=== PATIENT | female | born 1965 | race Caucasian/White ===

== ENCOUNTER → 2018-06-25 | Outpatient (CLI) | payer OTHER ==
--- NOTE | 2018-06-25 17:58 | CT ---
EXAMINATION TYPE: CT ChestAbdPelvis wo/w con DATE OF EXAM: 06/25/2018 INDICATION: Bile duct carcinoma, nausea abnormal physical findings COMPARISON: None CT DLP: 1530.0 mGycm CONTRAST: Performed with Oral Contrast and with IV Contrast, patient injected with 100 mL of Isovue 300. TECHNIQUE: Axial images at 5 mm thick sections. Reconstructed images in the coronal plane. Delayed images through the kidneys. FINDINGS: CT CHEST: Portion of the thyroid visualized is normal. No suspicious lung nodules or focal infiltrates are present. No enlarged mediastinal or hilar adenopathy is evident. The ascending aorta diameter at the level of the main pulmonary artery is 2.7 cm. The main pulmonary artery diameter at the bifurcation is 2.[address] ABDOMEN: Liver: Liver is a heterogenous appearance. There is lower density away from the portal system. Small amount of biliary air is present centrally. Discrete mass is not identified. And postcontrast imaging the liver appears diffusely hypodense which can be related to chemotherapy. There is a more focal hy podensity with somewhat irregular margins at the inferior anterior right lobe liver. This measures ap proximately 5 x 4.4 cm. Series 6 image 72. Metastatic lesion is not excluded. Spleen: Normal Pancreas: Body and tail of pancreas appear echogenic. Whipple's procedure has likely been performed. Pancreatic duct is somewhat prominent. Adrenal glands: The adrenal glands are normal. Gallbladder: Surgically absent Kidneys: No masses are evident. No hydronephrosis is present. No cysts are present. Delayed images were obtained through the kidneys, which remain unremarkable. Aorta: Vascular calcification is within the aorta. Inferior vena cava: Normal. CT PELVIS: Loops of bowel within the abdomen and pelvis are normal. There are loops of bowel which are incom pletely distended or lack oral contrast limiting their evaluation. Large fecal bolus at the rectum. C orrelate for impaction or constipation. Appendix: Normal as visualized. Urinary bladder: Normal. Genitourinary structures: Uterus is present. IUD is within the uterus. Adnexal regions are clear. Osseous structures: There are couple of sclerotic areas within the right symphysis pubis. Sclerotic a reas in the femoral heads bilaterally. No suspicious lytic lesions are evident. Facet degenerative ch anges are within the lumbar spine. IMPRESSIONS: 1. Heterogenous appearance to the liver. Some irregularity may be at the inferior right lobe liver. M etastatic disease is not excluded. Infiltrative process or metastasis or chemotherapy be considered. 2. Right upper quadrant postsurgical changes. 3. Fecal bolus at the rectum
== END ==
LOC: RADCTMAIN 10:54
PROVIDERS: ATTEND Internal Medicine Hematology & Oncology
DX: C24.0 Malignant neoplasm of extrahepatic bile duct (principal); G89.3 Neoplasm related pain (acute) (chronic); R11.0 Nausea
CPT/HCPCS: 71270; 74178; Q9967

== ENCOUNTER 2018-07-04 23:36 | Emergency (ER) | payer OTHER ==
[2018-07-04 23:50] VITALS: RESP 18
--- NOTE | 2018-07-05 01:54 | US ---
EXAMINATION TYPE: US venous doppler duplex LE DATE OF EXAM: 07/05/2018 1:02 AM COMPARISON: NONE CLINICAL HISTORY: Pain. Medial right thigh superficial redness and hardness that is painful. Patient states no blood thinners or surgeries to legs SIDE PERFORMED: Bilateral TECHNIQUE: The lower extremity deep venous system is examined utilizing real time linear array sonog mariluz with graded compression, doppler sonography and color-flow sonography. VESSELS IMAGED: External Iliac Vein (EIV) Common Femoral Vein Deep Femoral Vein Greater Saphenous Vein * Femoral Vein Popliteal Vein Small Saphenous Vein * Proximal Calf Veins (* superficial vessels) Right Leg: Negative for DVT. Area of medial red palpable areas scanned. Positive for SVT. Left Leg: Negative for DVT IMPRESSION: There is no evidence of deep venous thrombosis. There is a varicose superficial vein in t he upper right thigh that shows thrombus.
[2018-07-05 02:19] LABS: Basophils # (A) 0.1 k/uL (0-0.2); Basophils % (A) 1 %; Eosinophils # (A) 0.2 k/uL (0-0.7); Eosinophils % (A) 3 %; HGB 13.9 gm/dL (11.4-16.0); Lymphocytes # (A) 0.6 k/uL (1.0-4.8); Lymphocytes % (A) 7 %; MCH 32.7 pg (25.0-35.0); MCHC 33.9 g/dL (31.0-37.0); MCV 96.3 fL (80.0-100.0); Mean Platelet Volume 7.5; Monocytes # (A) 0.6 k/uL (0-1.0); Monocytes % (A) 8 %; Neutrophils # (A) 6.8 k/uL (1.3-7.7); Neutrophils % (A) 81 %; Platelet Count 210 k/uL (150-450); RBC 4.25 m/uL (3.80-5.40); RDW 11.9 % (11.5-15.5); WBC 8.4 k/uL (3.8-10.6)
[2018-07-05 02:30] LABS: Anion Gap 10 mmol/L; Blood Urea Nitrogen 9 mg/dL (7-17); Calcium 8.9 mg/dL (8.4-10.2); Carbon Dioxide 24 mmol/L (22-30); Chloride 103 mmol/L (98-107); Glucose 112 mg/dL (74-99); Potassium 4.1 mmol/L (3.5-5.1); Sodium 137 mmol/L (137-145)
--- NOTE | 2018-07-05 03:29 | ED ---
General Adult HPI - General Chief complaint: Extremity Problem,Nontraumatic Stated complaint: Varicose Veins Time Seen by Provider: 07/05/18 00:40 Source: patient Mode of arrival: EMS Limitations: no limitations - History of Present Illness Initial comments: 53-year-old female presents the emergency department for evaluation of swollen red leg, patient reports that she has a history of varicose veins and noted today that her varicose veins in her right leg became firm, red and painful. She became concerned that she may have a blood clot so she came to the ER for further evaluation. Patient denies any trauma to the leg. She denies any history of DVT or PE in the past. She is not on any antiplatelet or anticoagulant medications. She reports she called 911 because her leg was very painful and she didn't feel that she could drive to the emergency department. She denies any associated symptoms including fevers, chills, nausea, vomiting, chest pain palpitations or shortness of breath. - Related Data Home Medications Medication Instructions Recorded Confirmed HYDROcodone/APAP 10-325MG [[place] 1 tab PO Q6HR PRN 07/04/18 07/04/18 10-325] LORazepam [Ativan] 0.5 mg PO BID 07/04/18 07/04/18 Ondansetron HCl [Zofran] 4 mg PO TID PRN 07/04/18 07/04/18 Allergies Allergy/AdvReac Type Severity Reaction Status Date / Time No Known Allergies Allergy Verified 07/05/18 00:16 Review of Systems ROS Statement: Those systems with pertinent positive or pertinent negative responses have been documented in the HPI. ROS Other: All systems not noted in ROS Statement are negative. Past Medical History Past Medical History: Cancer History of Any Multi-Drug Resistant Organisms: None Reported Additional Past Surgical History / Comment(s): Whipple Procedure Past Psychological History: No Psychological Hx Reported Smoking Status: Current every day smoker Past Alcohol Use History: None Reported Past Drug Use History: None Reported General Exam Limitations: no limitations General appearance: alert, in no apparent distress Head exam: Present: atraumatic, normocephalic Eye exam: Present: normal appearance, PERRL ENT exam: Present: normal exam Neck exam: Present: normal inspection Respiratory exam: Present: normal lung sounds bilaterally. Absent: respiratory distress Cardiovascular Exam: Present: regular rate, normal rhythm GI/Abdominal exam: Present: soft. Absent: distended Rectal exam: Present: deferred Extremities exam: Present: full ROM, tenderness, normal capillary refill. Absent: pedal edema Right Upper Leg exam: Present: tenderness, swelling (Palpable firm cord on the medial thigh from the mid thigh to the level of the knee consistent with thrombosed superficial vein) Knee exam: Present: full ROM Neurological exam: Present: alert, oriented X3 Psychiatric exam: Present: normal affect, normal mood Skin exam: Present: warm, dry, other (Mild erythema over the area of venous thrombosis, no evidence of cellulitis, no induration or edema) Course Vital Signs 07/04/18 07/05/18 07/05/18 23:46 01:50 03:18 Temperature 98.0 F Pulse Rate 107 H 97 89 Respiratory 18 18 18 Rate Blood Pressure 156/86 143/86 105/92 O2 Sat by Pulse 96 96 97 Oximetry 07/05/18 04:12 Temperature 97.8 F Pulse Rate 68 Respiratory 18 Rate Blood Pressure 113/57 O2 Sat by Pulse 95 Oximetry Medical Decision Making - Medical Decision Making The patient was seen and evaluated, history is obtained from the patient As ago exam reveals a palpable cord on the right medial thigh to the level of the knee as well as a small palpable area on the right medial calf, these are highly suspicious for thrombosed superficial veins however I will obtain an ultrasound to evaluate for DVT Labs were obtained to evaluate white blood cell count Ultrasound reveals superficial venous thrombosis but no DVT There is no leukocytosis Symptomatic treatment with rest, heat, compression was discussed with the patient. Patient did express some agitation because this is a painful condition and she has [place] at home which she doesn't believe will help. I advised the patient that this pain is treated with NSAIDs and heat. I marked the borders of the redness and advised the patient that though I don't have any suspicion that she currently has a cellulitis or infection if the redness spreads she should be reevaluated at all questions pertaining to care were answered best my ability patient was discharged home in stable condition. - Lab Data Result diagrams: 07/05/18 01:47 07/05/18 01:47 Lab Results 07/05/18 07/05/18 Range/Units 01:47 01:47 WBC 8.4 (3.8-10.6) k/uL RBC 4.25 (3.80-5.40) m/uL Hgb 13.9 (11.4-16.0) gm/dL Hct 41.0 (34.0-46.0) % MCV 96.3 (80.0-100.0) fL MCH 32.7 (25.0-35.0) pg MCHC 33.9 (31.0-37.0) g/dL RDW 11.9 (11.5-15.5) % Plt Count 210 (150-450) k/uL Neutrophils % 81 % Lymphocytes % 7 % Monocytes % 8 % Eosinophils % 3 % Basophils % 1 % Neutrophils # 6.8 (1.3-7.7) k/uL Lymphocytes # 0.6 L (1.0-4.8) k/uL Monocytes # 0.6 (0-1.0) k/uL Eosinophils # 0.2 (0-0.7) k/uL Basophils # 0.1 (0-0.2) k/uL Sodium 137 (137-145) mmol/L Potassium 4.1 (3.5-5.1) mmol/L Chloride 103 (98-107) mmol/L Carbon Dioxide 24 (22-30) mmol/L Anion Gap 10 mmol/L BUN 9 (7-17) mg/dL Creatinine 0.50 L (0.52-1.04) mg/dL Est GFR (CKD-EPI)AfAm >90 (>60 ml/min/1.73 sqM) Est GFR (CKD-EPI)NonAf >90 (>60 ml/min/1.73 sqM) Glucose 112 H (74-99) mg/dL Calcium 8.9 (8.4-10.2) mg/dL Disposition Clinical Impression: Acute superficial venous thrombosis of right lower extremity Disposition: HOME SELF-CARE Condition: Good Instructions: Superficial Thrombophlebitis (ED) Is patient prescribed a controlled substance at d/c from ED?: No Referrals: Polo Chowdary MD [Primary Care Provider] - 1-2 days Time of Disposition: 03:30
[2018-07-05] MEDS ORDERED: KETOROLAC 30 MG/ML 1 ML VIAL IVP STA (03:53)
[2018-07-05 04:13] VITALS: BP 113/57; PULSE 68; TEMP 97.8
== END 2018-07-05 04:36 | disposition home or self-care (01) ==
LOC: EC 23:36
DX: I82.811 Embolism and thrombosis of superficial veins of right lower extremity (principal); F17.200 Nicotine dependence, unspecified, uncomplicated; Z85.9 Personal history of malignant neoplasm, unspecified; Z79.899 Other long term (current) drug therapy
CPT/HCPCS: 36415; 80048; 85025; 93970; 99284; 96374; J1885

== ENCOUNTER 2018-07-21 13:29 | Inpatient (IN) | payer OTHER ==
[2018-07-21] MEDS ORDERED: ONDANSETRON 4 MG/2 ML VIAL IVP STA (13:47)
[2018-07-21] MEDS ORDERED: MORPHINE SULFATE 4 MG/ML SYRINGE IV STA (13:47)
[2018-07-21] MEDS ORDERED: SODIUM CHLORIDE 0.9% 1,000 ML IV STA (13:47)
--- NOTE | 2018-07-21 13:50 | ED ---
General Adult HPI - General Chief complaint: Abdominal Pain Stated complaint: Abd.pain Time Seen by Provider: 07/21/18 13:41 Source: patient, RN notes reviewed Mode of arrival: ambulatory Limitations: no limitations - History of Present Illness Initial comments: Patient 53-year-old female presented to the emergency room today with chief complaint of right-sided abdominal pain. Patient does admit that she takes [place] at home for her abdominal pain. States has history of cancer and there is a spot on the liver that they are biopsy tomorrow. Patient does admit that she's had pain right upper quadrant. Patient states that she was having increased pain this weekend. She states that she has currently run out of her [place]. She is supposed to be given a new Prescription tomorrow. Patient states she did call the oncologist and was advised coming here to emergency room for evaluation. Patient denies any other complaints or symptoms at this time. Patient denies any recent fever, chills, shortness of breath, chest pain, back pain, numbness or tingling, dysuria or hematuria, constipation or diarrhea , headaches or visual changes, or any other complaints. - Related Data Home Medications Medication Instructions Recorded Confirmed HYDROcodone/APAP 10-325MG [[place] 1 tab PO Q6HR PRN 07/04/18 07/21/18 10-325] LORazepam [Ativan] 0.5 mg PO BID 07/04/18 07/21/18 Ondansetron HCl [Zofran] 4 mg PO TID PRN 07/04/18 07/21/18 Allergies Allergy/AdvReac Type Severity Reaction Status Date / Time No Known Allergies Allergy Verified 07/21/18 14:30 Review of Systems ROS Statement: Those systems with pertinent positive or pertinent negative responses have been documented in the HPI. ROS Other: All systems not noted in ROS Statement are negative. 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 Eye: Pupils are equal, round and reactive to light. Extra-ocular movements are intact. No nystagmus. There is normal conjunctiva bilaterally. No signs of icterus. Ears, nose, mouth and throat: There are moist mucous membranes and no oral lesions. Neck: The neck is supple, there is no tenderness or JVD. Cardiovascular: There is a regular rate and rhythm. No murmur, rub or gallop is appreciated. Respiratory: Lungs are clear to auscultation, respirations are non-labored, breath sounds are equal. No wheezes, stridor, rales, or rhonchi. Gastrointestinal: Abdomen soft on the patient. Tender to palpation right quadrant. No rebound, guarding or CVA tenderness. Musculoskeletal: Normal ROM, no tenderness. Sensation intact. Strength 5/5. Pulses equal bilaterally 2+. Neurological: A&O x 3. CN II-XII intact, There are no obvious motor or sensory deficits. Coordination appears grossly intact. Speech is normal. Skin: Skin is warm and dry and no rashes or lesions are noted. Psychiatric: Cooperative, appropriate mood & affect, normal judgment. Limitations: no limitations Course Vital Signs 07/21/18 13:38 Temperature 97.3 F L Pulse Rate 103 H Respiratory 18 Rate Blood Pressure 112/81 O2 Sat by Pulse 97 Oximetry Medical Decision Making - Medical Decision Making Patient's labs been reviewed. Case was discussed and seen by attending physician Dr. Chavez who did discuss case with patient's oncologist and vomiting physician Dr. Maldonado who will admit the patient. - Lab Data Result diagrams: 07/21/18 14:00 07/21/18 14:00 Lab Results 07/21/18 07/21/18 07/21/18 Range/Units 14:00 14:00 14:00 WBC 11.8 H (3.8-10.6) k/uL RBC 5.31 (3.80-5.40) m/uL Hgb 16.6 H (11.4-16.0) gm/dL Hct 52.4 H (34.0-46.0) % MCV 98.6 (80.0-100.0) fL MCH 31.3 (25.0-35.0) pg MCHC 31.7 (31.0-37.0) g/dL RDW 12.4 (11.5-15.5) % Plt Count 208 (150-450) k/uL Neutrophils % 84 % Lymphocytes % 7 % Monocytes % 7 % Eosinophils % 2 % Basophils % 0 % Neutrophils # 9.8 H (1.3-7.7) k/uL Lymphocytes # 0.8 L (1.0-4.8) k/uL Monocytes # 0.8 (0-1.0) k/uL Eosinophils # 0.2 (0-0.7) k/uL Basophils # 0.1 (0-0.2) k/uL Sodium 139 (137-145) mmol/L Potassium 4.3 (3.5-5.1) mmol/L Chloride 100 (98-107) mmol/L Carbon Dioxide 29 (22-30) mmol/L Anion Gap 10 mmol/L BUN 8 (7-17) mg/dL Creatinine 0.76 (0.52-1.04) mg/dL Est GFR (CKD-EPI)AfAm >90 (>60 ml/min/1.73 sqM) Est GFR (CKD-EPI)NonAf 90 (>60 ml/min/1.73 sqM) Glucose 116 H (74-99) mg/dL Calcium 10.2 (8.4-10.2) mg/dL Total Bilirubin 1.0 (0.2-1.3) mg/dL AST 54 H (14-36) U/L ALT 29 (9-52) U/L Alkaline Phosphatase 334 H (38-126) U/L Total Protein 8.0 (6.3-8.2) g/dL Albumin 4.3 (3.5-5.0) g/dL Amylase 31 (30-110) U/L Lipase <10 L (23-300) U/L Urine Color Yellow Urine Appearance Cloudy H (Clear) Urine pH 6.5 (5.0-8.0) Ur Specific [place] 1.016 (1.001-1.035) Urine Protein 1+ H (Negative) Urine Glucose (UA) Negative (Negative) Urine Ketones Negative (Negative) Urine Blood Trace H (Negative) Urine Nitrite Positive H (Negative) Urine Bilirubin Negative (Negative) Urine Urobilinogen 2.0 (<2.0) mg/dL Ur Leukocyte Esterase Moderate H (Negative) Urine RBC 4 (0-5) /hpf Urine WBC 19 H (0-5) /hpf Ur Squamous Epith Cells 13 H (0-4) /hpf Amorphous Sediment Rare H (None) /hpf Urine Bacteria Moderate H (None) /hpf Hyaline Casts 17 H (0-2) /lpf Urine Mucus Many H (None) /hpf Disposition Clinical Impression: Liver mass, UTI (urinary tract infection) Disposition: ADMITTED IP TO THIS HOSP Condition: Stable Is patient prescribed a controlled substance at d/c from ED?: No Referrals: None,Stated [Primary Care Provider] - 1-2 days Time of Disposition: 15:11
[2018-07-21 14:22] LABS: Amorphous Sediment,Urine Rare /hpf; Appearance,Urine Cloudy (Clear); Bacteria,Urine Moderate /hpf; Bilirubin,Urine Negative (Negative); Blood,Urine Trace (Negative); Color,Urine Yellow; Glucose,Urine (UA) Negative (Negative); Hyaline Casts,Urine 17 /lpf (0-2); Ketones,Urine Negative (Negative); Leukocyte Esterase,Urine Moderate (Negative); Mucus,Urine Many /hpf; Nitrite,Urine Positive (Negative); PH, Urine 6.5 (5.0-8.0); Protein,Urine 1+ (Negative); RBC,Urine 4 /hpf (0-5); Specific Gravity,Urine 1.016 (1.001-1.035); Squamous Epithelial Cell,Urine 13 /hpf (0-4); WBC,Urine 19 /hpf (0-5)
[2018-07-21 14:25] LABS: ALT 29 U/L (9-52); AST 54 U/L (14-36); Albumin 4.3 g/dL (3.5-5.0); Alkaline Phosphatase 334 U/L (38-126); Amylase 31 U/L (30-110); Anion Gap 10 mmol/L; Blood Urea Nitrogen 8 mg/dL (7-17); Calcium 10.2 mg/dL (8.4-10.2); Carbon Dioxide 29 mmol/L (22-30); Chloride 100 mmol/L (98-107); Glucose 116 mg/dL (74-99); Lipase <10 U/L (23-300); Potassium 4.3 mmol/L (3.5-5.1); Sodium 139 mmol/L (137-145)
[2018-07-21 14:31] LABS: Basophils # (A) 0.1 k/uL (0-0.2); Basophils % (A) 0 %; Eosinophils # (A) 0.2 k/uL (0-0.7); Eosinophils % (A) 2 %; HCT 52.4 % (34.0-46.0); HGB 16.6 gm/dL (11.4-16.0); Lymphocytes # (A) 0.8 k/uL (1.0-4.8); Lymphocytes % (A) 7 %; MCH 31.3 pg (25.0-35.0); MCHC 31.7 g/dL (31.0-37.0); MCV 98.6 fL (80.0-100.0); Mean Platelet Volume 7.1; Monocytes # (A) 0.8 k/uL (0-1.0); Monocytes % (A) 7 %; Neutrophils # (A) 9.8 k/uL (1.3-7.7); Neutrophils % (A) 84 %; Platelet Count 208 k/uL (150-450); RBC 5.31 m/uL (3.80-5.40); RDW 12.4 % (11.5-15.5); WBC 11.8 k/uL (3.8-10.6)
[2018-07-21] MEDS ORDERED: cefTRIAXone IN SWFI 1,000 MG/10 ML SYRINGE IVP STA (15:10)
[2018-07-21] MEDS ORDERED: ACETAMINOPHEN TAB 325 MG TAB PO PRN (15:12)
[2018-07-21] MEDS ORDERED: NALOXONE 0.4 MG/ML 1 ML VIAL IV PRN (15:12)
[2018-07-21] MEDS ORDERED: TEMAZEPAM 15 MG CAP PO PRN (17:30)
[2018-07-21 17:56] LABS: INR 1.2 (<1.2); Prothrombin Time 11.2 sec (9.0-12.0)
[2018-07-21] MEDS: MORPHINE SULFATE 4 MG/ML SYRINGE IV PRN (18:10)
[2018-07-21] MEDS: NICOTINE 14MG/24HR PATCH TRANSDERM SCH (18:10)
[2018-07-21] MEDS: PANTOPRAZOLE 40 MG/10 ML VIAL IVP SCH ×2 (18:10→20:47)
--- NOTE | 2018-07-21 18:24 | P.CONS ---
History of Present Illness - Reason for Consult Consult date: 07/21/18 Mass. History of bile duct cancer - History of Present Illness The patient is a 53-year-old white female, well known to our service. She was diagnosed with bile duct cancer and was seen by Dr. Chowdary at [facility] in 2017. She underwent a Whipple's procedure, followed by chemotherapy and radiation. After completion of treatment the patient had no evident disease and was placed on observation. The patient then presented last month, with complains of right-sided abdominal pain that had started about 6 weeks prior and had slowly progressed to become more severe and persistent. On exam she was noted to have right upper quadrant tenderness, and hepatomegaly. She therefore had a computed tomography scan which confirmed the presence of a mass. A liver biopsy was subsequently ordered. This was supposed to be scheduled for 08/01/18 as an outpatient. The patient's pain had been controlled with [place] 10/325. She ran out of her prescription about 2 days prior to admission, and developed increasing pain. She also had 1 episode of nausea and vomiting. He therefore came into the emergency room. Her urinalysis showed evidence of possible infection. She was therefore admitted for further management. Review of Systems Constitutional: Reports chronic pain, Reports fatigue, Reports poor appetite Eyes: denies blurred vision, denies pain Ears: deny: decreased hearing, ear discharge, earache, tinnitus Ears, nose, mouth and throat: Denies headache, Denies sore throat Cardiovascular: Denies chest pain, Denies shortness of breath Respiratory: Denies cough Gastrointestinal: Reports abdominal pain, Reports constipation, Reports nausea, Reports vomiting Genitourinary: Reports urinary frequency Menstruation: Reports postmenopausal Musculoskeletal: Denies myalgias Integumentary: Denies pruritus, Denies rash Neurological: Reports weakness, Denies numbness Psychiatric: Denies anxiety, Denies depression Endocrine: Reports fatigue, Denies weight change Hematologic/Lymphatic: Reports as per HPI Past Medical History Past Medical History: Cancer Additional Past Medical History / Comment(s): Carcinoma of bile duct dx 2017 - whipple procedure done at [facility]. has "spot on liver" was scheduled for bx 07-22-18 History of Any Multi-Drug Resistant Organisms: None Reported Past Surgical History: Tonsillectomy Additional Past Surgical History / Comment(s): Whipple Procedure Past Anesthesia/Blood Transfusion Reactions: No Reported Reaction Smoking Status: Current every day smoker - Past Family History Mother History Unknown: Yes Father History Unknown: Yes Medications and Allergies Home Medications Medication Instructions Recorded Confirmed Type HYDROcodone/APAP 10-325MG [[place] 1 tab PO Q6HR PRN 07/04/18 07/21/18 History 10-325] LORazepam [Ativan] 0.5 mg PO BID 07/04/18 07/21/18 History Ondansetron HCl [Zofran] 4 mg PO TID PRN 07/04/18 07/21/18 History Allergies Allergy/AdvReac Type Severity Reaction Status Date / Time No Known Allergies Allergy Verified 07/21/18 14:30 Physical Exam Vitals: Vital Signs Temp Pulse Resp BP Pulse Ox 07/21/18 16:38 97.9 F 71 17 139/73 99 07/21/18 13:38 97.3 F L 103 H 18 112/81 97 Intake and Output 07/21/18 07/21/18 07/21/18 06:59 14:59 22:59 Other: Weight 75.296 kg - Constitutional General appearance: no acute distress - EENT Eyes: EOMI, PERRLA ENT: hearing grossly normal, normal oropharynx - Neck Neck: no lymphadenopathy Thyroid: bilateral: normal size - Respiratory Respiratory: bilateral: CTA - Cardiovascular Rhythm: regular Heart sounds: normal: S1, S2 - Gastrointestinal General gastrointestinal: hepatomegaly, soft Localized gastrointestinal: tender: RUQ - Integumentary Integumentary: normal - Neurologic Neurologic: CNII-XII intact - Musculoskeletal Musculoskeletal: strength equal bilaterally - Psychiatric Psychiatric: A&O x's 3, appropriate affect Results CBC & Chem 7: 07/21/18 14:00 07/21/18 14:00 Labs: Abnormal Lab Results - Last 24 Hours (Table) 07/21/18 07/21/18 07/21/18 Range/Units 14:00 14:00 14:00 WBC 11.8 H (3.8-10.6) k/uL Hgb 16.6 H (11.4-16.0) gm/dL Hct 52.4 H (34.0-46.0) % Neutrophils # 9.8 H (1.3-7.7) k/uL Lymphocytes # 0.8 L (1.0-4.8) k/uL INR (<1.2) Glucose 116 H (74-99) mg/dL AST 54 H (14-36) U/L Alkaline Phosphatase 334 H (38-126) U/L Lipase <10 L (23-300) U/L Urine Appearance Cloudy H (Clear) Urine Protein 1+ H (Negative) Urine Blood Trace H (Negative) Urine Nitrite Positive H (Negative) Ur Leukocyte Esterase Moderate H (Negative) Urine WBC 19 H (0-5) /hpf Ur Squamous Epith Cells 13 H (0-4) /hpf Amorphous Sediment Rare H (None) /hpf Urine Bacteria Moderate H (None) /hpf Hyaline Casts 17 H (0-2) /lpf Urine Mucus Many H (None) /hpf 07/21/18 Range/Units 14:00 WBC (3.8-10.6) k/uL Hgb (11.4-16.0) gm/dL Hct (34.0-46.0) % Neutrophils # (1.3-7.7) k/uL Lymphocytes # (1.0-4.8) k/uL INR 1.2 H (<1.2) Glucose (74-99) mg/dL AST (14-36) U/L Alkaline Phosphatase (38-126) U/L Lipase (23-300) U/L Urine Appearance (Clear) Urine Protein (Negative) Urine Blood (Negative) Urine Nitrite (Negative) Ur Leukocyte Esterase (Negative) Urine WBC (0-5) /hpf Ur Squamous Epith Cells (0-4) /hpf Amorphous Sediment (None) /hpf Urine Bacteria (None) /hpf Hyaline Casts (0-2) /lpf Urine Mucus (None) /hpf CT scan - abdomen: report reviewed CT scan - pelvis: report reviewed Assessment and Plan (1) Liver mass Narrative/Plan: The patient has a known history of bile duct cancer status post treatment as described. She has now been diagnosed with a liver mass, which is symptomatic. The primary concern is recurrence. Biopsy has been ordered. This will be ordered as inpatient. Current Visit: Yes Status: Acute Code(s): R16.0 - HEPATOMEGALY, NOT ELSEWHERE CLASSIFIED SNOMED Code(s): 511795027 (2) UTI (urinary tract infection) Narrative/Plan: The patient did complain of urinary frequency, but states that that is somewhat chronic for her. She did have an episode of nausea and vomiting which is new for her and generally not associated with her pain. She has been placed on ceftriaxone. Defer to the admitting service for further management Current Visit: Yes Status: Acute Code(s): N39.0 - URINARY TRACT INFECTION, SITE NOT SPECIFIED SNOMED Code(s): 47381349 (3) Neoplasm related pain Narrative/Plan: The patient states that there has been no major change in the pattern of her pain. It had become more severe and she was not taking her medications. She has been placed back on [place] . Continue to monitor Current Visit: Yes Status: Acute Code(s): G89.3 - NEOPLASM RELATED PAIN ( ACUTE) (CHRONIC) SNOMED Code(s): 941711298
--- NOTE | 2018-07-21 18:26 | HP ---
HISTORY AND PHYSICAL CHIEF COMPLAINT: Abdominal pain. HISTORY OF PRESENT ILLNESS: This 53-year-old woman with a past history of common bile duct malignancy, underwent Whipple's procedure in 2017, history of anxiety being followed by no primary physician in the outpatient setting, was also following Dr. Chowdary in the outpatient. The patient had a CT scan of the abdomen and pelvis last month, which the patient is complaining of right upper quadrant abdominal pain. The CAT scan of the abdomen showed heterogeneous appearance of the liver. Irregularity at the inferior right lobe was noted. Metastatic lesion was noted not excluded. Right upper quadrant postsurgical changes noted and the patient was scheduled for a liver biopsy tomorrow. Because of lack of improvement of the pain the patient came to [facility] and admitted for further evaluation and treatment. There is no history of fever, rigors. No headache, loss of consciousness, seizures. PAST MEDICAL HISTORY: History of common bile duct malignancy, multiple procedures, history of anxiety. MEDICATIONS: 1. Zofran 4 mg t.i.d. p.r.n. 2. Ativan 0.5 mg b.i.d. 3. [place] 10 mg q.6h p.r.n. ALLERGIES: None. FAMILY HISTORY: No history of heart disease or strokes in family. SOCIAL HISTORY: History of smoking on daily basis. REVIEW OF SYSTEMS: ENT: No diminished hearing or vision. CARDIOVASCULAR: No angina. RESPIRATORY: No cough or hemoptysis. GI: No nausea. : No dysuria. NERVOUS SYSTEM: No numbness or weakness. ALLERGY/IMMUNOLOGY: No history of asthma. MUSCULOSKELETAL: As mentioned earlier. HEMATOLOGY/ONCOLOGY: As mentioned earlier. ENDOCRINE: No history of diabetes or hypothyroidism. CONSTITUTIONAL: As mentioned earlier. DERMATOLOGY: Negative. RHEUMATOLOGY: Negative. PSYCHIATRY: As mentioned earlier. PHYSICAL EXAMINATION: Alert and oriented x2. Pulse is 71, blood pressure 139/70, respiration 17, temperature 97.9, pulse ox 98% on room air. HEENT: Conjunctivae normal. Oral mucosa moist. Neck is no jugular venous distention. No carotid bruit. No lymph node enlargement. CARDIOVASCULAR: S1, S2. RESPIRATORY: Breath sounds diminished in the bases. A few scattered rhonchi. No crackles. ABDOMEN: Soft. Tenderness in the right lower quadrant. Liver is enlarged about 4 cm, firm, tender. Some edema noted. noted. Otherwise no other mass palpable. No ascites. No guarding. No rigidity. LEGS: No edema. NERVOUS SYSTEM: Higher functions as mentioned earlier. Moves all 4 limbs. No focal motor or sensory deficits. LABS: WBC 11.8, hemoglobin 16.6, glucose 116, AST is 54. UA noted. ASSESSMENT: 1. Right upper quadrant abdominal pain with hepatomegaly, rule out malignancy. 2. History of common bile duct malignancy and Whipple's procedure. 3. Increased WBC. 4. History of nicotine dependence. 5. Increased random blood sugar. 6. Increased alkaline phosphatase. 7. Rule out urinary tract infection. RECOMMENDATIONS AND DISCUSSION: In this 53-year-old woman who presented with multiple complex medical issues, we will monitor the patient closely. Continue the current management and will initiate symptomatic treatment of the pain. Otherwise Hematology-Oncology evaluation, also possible liver biopsy by Dr. Luna, which is already scheduled. Otherwise, continue to monitor, repeat labs, empiric antibiotics for the UTI. Prognosis guarded because of multiple complex medical issues. Further recommendations to follow. Also recommend the patient follow up with primary physician also. See orders for details. MMODL / IJN: [id number] /
[2018-07-21] MEDS: HYDROcodone/APAP 10-325MG 1 EACH TAB PO PRN (19:33)
[2018-07-21] MEDS: HYDROmorphone 1 MG/ML 1 ML SYRINGE IVP PRN (22:37)
[2018-07-22] MEDS: HYDROcodone/APAP 10-325MG 1 EACH TAB PO PRN ×3 (01:33→15:11)
[2018-07-22] MEDS: HYDROmorphone 1 MG/ML 1 ML SYRINGE IVP PRN ×6 (03:29→21:38)
[2018-07-22] MEDS: MORPHINE SULFATE 4 MG/ML SYRINGE IV PRN ×3 (05:33→17:17)
[2018-07-22] MEDS: PANTOPRAZOLE 40 MG/10 ML VIAL IVP SCH (08:39)
[2018-07-22 09:05] LABS: Basophils # (A) 0.1 k/uL (0-0.2); Basophils % (A) 1 %; Eosinophils # (A) 0.4 k/uL (0-0.7); Eosinophils % (A) 4 %; HCT 44.6 % (34.0-46.0); Lymphocytes # (A) 0.7 k/uL (1.0-4.8); Lymphocytes % (A) 8 %; MCH 31.2 pg (25.0-35.0); MCHC 31.4 g/dL (31.0-37.0); MCV 99.3 fL (80.0-100.0); Mean Platelet Volume 7.2; Monocytes # (A) 0.8 k/uL (0-1.0); Monocytes % (A) 9 %; Neutrophils # (A) 7.2 k/uL (1.3-7.7); Neutrophils % (A) 77 %; Platelet Count 179 k/uL (150-450); RDW 12.6 % (11.5-15.5); WBC 9.3 k/uL (3.8-10.6)
[2018-07-22 09:14] LABS: ALT 25 U/L (9-52); AST 38 U/L (14-36); Albumin 3.2 g/dL (3.5-5.0); Alkaline Phosphatase 234 U/L (38-126); Anion Gap 9 mmol/L; Blood Urea Nitrogen 7 mg/dL (7-17); Calcium 9.3 mg/dL (8.4-10.2); Carbon Dioxide 25 mmol/L (22-30); Chloride 104 mmol/L (98-107); Glucose 88 mg/dL (74-99); Potassium 4.5 mmol/L (3.5-5.1); Sodium 138 mmol/L (137-145); Total Bilirubin 0.7 mg/dL (0.2-1.3); Total Protein 6.1 g/dL (6.3-8.2)
[2018-07-22] MEDS: NICOTINE 14MG/24HR PATCH TRANSDERM SCH ×3 (09:20→18:12)
[2018-07-22] MEDS ORDERED: TEMAZEPAM 15 MG CAP PO PRN (11:00)
[2018-07-22] MEDS: LORazepam 0.5 MG TAB PO PRN (14:57)
[2018-07-22] MEDS: ONDANSETRON 4 MG/2 ML VIAL IVP PRN (14:58)
[2018-07-22] MEDS: cefTRIAXone IN SWFI 1,000 MG/10 ML SYRINGE IVP SCH (15:12)
[2018-07-22] MEDS: PANTOPRAZOLE 40 MG TABLET PO SCH (15:12)
--- NOTE | 2018-07-22 15:36 | PN ---
PROGRESS NOTE DATE OF SERVICE: 07/22/2018. This 53-year-old woman who was admitted with right upper quadrant abdominal pain selective to undergo liver biopsy today. No chest pain. No palpitations. No fever. Still complaining of generalized aches and pains. PHYSICAL EXAM: Alert and oriented x3. Pulse 94, blood pressure 100/67, respirations 16, temperature 97.6, pulse ox 96% on room air. HEENT: Conjunctivae normal. Oral mucosa moist. NECK: No jugular venous distention. No carotid bruit. No lymph node enlargement. CARDIOVASCULAR: S1, S2. RESPIRATORY: Breath sounds diminished in the bases. No rhonchi. No crackles. ABDOMEN: Soft. Hepatomegaly tendinosis. NERVOUS SYSTEM: No focal deficits. LABS: CBC within normal limits. LFTs, alkaline phosphatase is 334, AST is 38. UA noted. ASSESSMENT: 1. Right upper quadrant abdominal pain with possible hepatomegaly, rule out malignancy. 2. History of common bile duct malignancy status post Whipple procedure. 3. Increased WBC. 4. History of nicotine dependence. 5. Increased random blood sugar. 6. increased alkaline phosphatase. 7. Possibly urinary tract infection. RECOMMENDATIONS AND DISCUSSION: I recommend to continue current management and symptomatic treatment. Otherwise pain medications. Liver biopsy. Closely follow with Hematology/Oncology. Guarded [id number]. Further recommendations to follow. MMODL / IJN: [id number] /
--- NOTE | 2018-07-22 17:32 | P.PN ---
Subjective Progress Note Date: 07/22/18 Principal diagnosis: intractable right upper quadrant pain Patient seen today in follow-up. Currently her right upper quadrant pain is not well controlled. It is stabbing, pulsing/pressure, it is persistent, progressive for about 3 months, pain meds are only helping a little bit now, positioning does not help, she has to change positions frequently, she denies fevers, nausea vomiting, diarrhea or constipation. Plan is for liver biopsy tomorrow. Objective - Vital Signs Vital signs: Vital Signs Temp 97.8 F 07/22/18 12:01 Pulse 79 07/22/18 15:56 Resp 16 07/22/18 15:56 BP 97/65 07/22/18 12:01 Pulse Ox 96 07/22/18 05:27 Intake & Output 07/21/18 07/22/18 07/22/18 18:59 06:59 18:59 Intake Total 320 200 Balance 320 200 Weight 75.296 kg 75.296 kg 75.296 kg Intake: Oral 320 200 Other: Voiding Method Toilet Toilet # Voids 2 2 - Constitutional General appearance: Present: average body habitus, cooperative, mild distress - EENT Eyes: Present: anicteric sclerae ENT: Present: normal oropharynx - Respiratory Respiratory: bilateral: CTA - Cardiovascular Rhythm: regular - Peripheral edema leg Peripheral Edema: bilateral: None - Gastrointestinal General gastrointestinal: Present: soft Localized gastrointestinal: tender: RUQ, LUQ, epigastric periumbilical - Integumentary Integumentary: Present: normal - Neurologic Neurologic: Present: CNII-XII intact - Musculoskeletal Musculoskeletal: Present: strength equal bilaterally - Psychiatric Psychiatric: Present: A&O x's 3, appropriate affect, intact judgment & insight - Labs CBC & Chem 7: 07/22/18 08:23 07/22/18 08:23 Labs: Abnormal Lab Results - Last 24 Hours (Table) 07/21/18 07/22/18 07/22/18 Range/Units 14:00 08:23 08:23 Lymphocytes # 0.7 L (1.0-4.8) k/uL INR 1.2 H (<1.2) AST 38 H (14-36) U/L Alkaline Phosphatase 234 H (38-126) U/L Total Protein 6.1 L (6.3-8.2) g/dL Albumin 3.2 L (3.5-5.0) g/dL Assessment and Plan (1) Intractable pain Narrative/Plan: pain medications being titrated for comfort Current Visit: Yes Status: Acute Priority: High Code(s): R52 - PAIN, UNSPECIFIED SNOMED Code(s): 94423806 (2) Primary bile duct adenocarcinoma Narrative/Plan: History of malignancy status post treatment and surgery. Current Visit: Yes Status: Chronic Priority: High Code(s): C24.0 - MALIGNANT NEOPLASM OF EXTRAHEPATIC BILE DUCT SNOMED Code(s): 465737446 (3) Liver mass Narrative/Plan: Very concerning for metastatic disease. Patient was due to have biopsy outpatient but, she will do now inpatient. plan is for procedure tomorrow Current Visit: Yes Status: Acute Priority: High Code(s): R16.0 - HEPATOMEGALY, NOT ELSEWHERE CLASSIFIED SNOMED Code(s): 752307390 Plan: Suspicious urinary analysis, patient is on antibiotics per internal medicine.
[2018-07-22] MEDS: oxyCODONE-APAP 7.5-325MG 1 EACH TAB PO PRN ×2 (20:17→23:55)
[2018-07-23] MEDS: HYDROmorphone 1 MG/ML 1 ML SYRINGE IVP PRN ×8 (01:20→23:57)
[2018-07-23] MEDS: oxyCODONE-APAP 7.5-325MG 1 EACH TAB PO PRN ×4 (07:20→20:17)
[2018-07-23] MEDS: LORazepam 0.5 MG TAB PO PRN ×4 (07:21→20:17)
[2018-07-23] MEDS: PANTOPRAZOLE 40 MG TABLET PO SCH ×2 (07:21→16:09)
[2018-07-23] MEDS: NICOTINE 14MG/24HR PATCH TRANSDERM SCH (07:21)
[2018-07-23 08:23] LABS: Basophils # (A) 0.1 k/uL (0-0.2); Basophils % (A) 1 %; Eosinophils # (A) 0.3 k/uL (0-0.7); Eosinophils % (A) 3 %; HCT 41.7 % (34.0-46.0); Lymphocytes # (A) 0.4 k/uL (1.0-4.8); Lymphocytes % (A) 5 %; MCH 30.9 pg (25.0-35.0); MCHC 31.2 g/dL (31.0-37.0); MCV 99.2 fL (80.0-100.0); Mean Platelet Volume 7.2; Monocytes # (A) 0.8 k/uL (0-1.0); Monocytes % (A) 8 %; Neutrophils % (A) 83 %; Platelet Count 161 k/uL (150-450); RBC 4.21 m/uL (3.80-5.40); RDW 12.2 % (11.5-15.5); WBC 9.7 k/uL (3.8-10.6)
[2018-07-23 08:41] LABS: ALT 36 U/L (9-52); AST 63 U/L (14-36); Albumin 3.1 g/dL (3.5-5.0); Alkaline Phosphatase 291 U/L (38-126); Anion Gap 8 mmol/L; Blood Urea Nitrogen 9 mg/dL (7-17); Carbon Dioxide 26 mmol/L (22-30); Chloride 103 mmol/L (98-107); Glucose 116 mg/dL (74-99); Potassium 4.2 mmol/L (3.5-5.1); Sodium 137 mmol/L (137-145); Total Bilirubin 0.7 mg/dL (0.2-1.3); Total Protein 5.9 g/dL (6.3-8.2)
--- NOTE | 2018-07-23 12:00 | US ---
EXAMINATION TYPE: US biopsy liver DATE OF EXAM: 07/23/2018 HISTORY: Liver mass. FINDINGS: Maximal barrier technique was utilized. The skin overlying a suitable path to the patient' s mass was localized with ultrasound and the overlying skin prepped and draped. Ultrasound was utili zed with sterile technique. Lidocaine was used for local anesthesia. A skin ina was made with a sc alpel. A 17-gauge guide needle was advanced under ultrasound guidance. An 18-gauge needle was advanc ed under direct ultrasound guidance and core specimen obtained of the mass. Specimen submitted in [facility] to Pathology. Following the procedure, hemostasis achieved and the patient is discharged in s table condition without complication. IMPRESSION:STATUS POST ULTRASOUND GUIDED CORE BIOPSY OF right lobe liver MASS, PATHOLOGY IS PENDING. THIS PROCEDURE IS PERFORMED BY THE UNDERSIGNED.
[2018-07-23] MEDS ORDERED: KETOROLAC 30 MG/ML 1 ML VIAL IVP PRN (13:01)
--- NOTE | 2018-07-23 14:26 | P.PN ---
Subjective Progress Note Date: 07/23/18 Principal diagnosis: intractable right upper quadrant pain Patient seen today in follow-up. She is status post her liver biopsy. She states that right upper quadrant pain is still not well controlled on current analgesic regimen with changes. Patient denies nausea, states she does want to eat lunch, no cough, changes in bowel or bladder habits, swelling or bleeding. Objective - Vital Signs Vital signs: Vital Signs Temp 97.7 F 07/23/18 11:55 Pulse 82 07/23/18 12:15 Resp 16 07/23/18 11:55 BP 121/70 07/23/18 12:15 Pulse Ox 97 07/23/18 11:55 Intake & Output 07/22/18 07/23/18 07/23/18 18:59 06:59 18:59 Intake Total 200 Balance 200 Weight 75.296 kg 75.296 kg Intake: Oral 200 Other: Voiding Method Toilet Toilet Toilet # Voids 2 2 2 - Constitutional General appearance: Present: average body habitus, cooperative, no acute distress - EENT Eyes: Present: anicteric sclerae - Respiratory Respiratory: bilateral: CTA - Cardiovascular Rhythm: regular Heart sounds: normal: S1, S2 - Peripheral edema leg Peripheral Edema: bilateral: None - Gastrointestinal General gastrointestinal: Present: soft, tenderness Localized gastrointestinal: tender: RUQ, epigastric periumbilical - Integumentary Integumentary: Present: normal - Neurologic Neurologic: Present: CNII-XII intact - Musculoskeletal Musculoskeletal: Present: strength equal bilaterally - Psychiatric Psychiatric: Present: A&O x's 3, appropriate affect, intact judgment & insight - Labs CBC & Chem 7: 07/23/18 07:58 07/23/18 07:58 Labs: Abnormal Lab Results - Last 24 Hours (Table) 07/23/18 07/23/18 Range/Units 07:58 07:58 Neutrophils # 8.0 H (1.3-7.7) k/uL Lymphocytes # 0.4 L (1.0-4.8) k/uL Creatinine 0.49 L (0.52-1.04) mg/dL Glucose 116 H (74-99) mg/dL AST 63 H (14-36) U/L Alkaline Phosphatase 291 H (38-126) U/L Total Protein 5.9 L (6.3-8.2) g/dL Albumin 3.1 L (3.5-5.0) g/dL Assessment and Plan (1) Intractable pain Narrative/Plan: Fentanyl will be added for long-acting analgesic, continue Percocet for breakthrough and IV Dilaudid for emergent breakthrough pain. Discussed the goals pain management with patient, reviewed that she will likely not be completely pain free but, should have enough relief to be functional, able to eat and rest. She verbalized understanding. Close monitoring of bowel movement, educated on narcotic-induced constipation. Current Visit: Yes Status: Acute Priority: High Code(s): R52 - PAIN, UNSPECIFIED SNOMED Code(s): 04163523 (2) Primary bile duct adenocarcinoma Narrative/Plan: Pending recent liver biopsy, concerns are for metastatic disease. Current Visit: Yes Status: Chronic Priority: High Code(s): C24.0 - MALIGNANT NEOPLASM OF EXTRAHEPATIC BILE DUCT SNOMED Code(s): 719831218 (3) Liver mass Current Visit: Yes Status: Acute Priority: High Code(s): R16.0 - HEPATOMEGALY, NOT ELSEWHERE CLASSIFIED SNOMED Code(s): 924589401
[2018-07-23] MEDS: cefTRIAXone IN SWFI 1,000 MG/10 ML SYRINGE IVP SCH (16:09)
--- NOTE | 2018-07-23 17:19 | PN ---
PROGRESS NOTE DATE OF SERVICE: 07/23/2018 This 53-year-old woman was admitted with right upper quadrant pain, also had a possible hepatic malignancy. The patient is slated for liver biopsy today. The patient complains of severe pain. Patient has a UTI, also. No chest pain. No palpitations. No fever. EXAM: Alert and oriented x3. Pulse 82, blood pressure 120/68, respirations 16, temperature 97.7, pulse ox 97% on room air. HEENT: Conjunctivae normal. Oral mucosa moist. NECK: No jugular venous distention. No carotid bruits. No lymph node enlargement. CARDIOVASCULAR: S1, S2 muffled. RESPIRATORY: Breath sounds diminished in the bases. No scattered rhonchi. No crackles. ABDOMEN: Soft, hepatomegaly. Tenderness present. NERVOUS SYSTEM: Nonfocal. LABS: CBC within normal limits and alk phos 291. Albumin is 3.1. ASSESSMENT: 1. Right upper quadrant abdominal pain with possible hepatomegaly, rule out malignancy and metastasis with failure of outpatient treatment .. 2. History of common bile duct malignancies, status post Whipple procedure. 3. Increased WBC. 4. History of nicotine dependence. 5. Increased random blood sugar. 6. Increased alkaline phosphatase. 7. Possible urinary tract infection. RECOMMENDATIONS AND DISCUSSION: Recommend to continue current medical management and symptomatic treatment. Continue with the pain medications, pain management. Otherwise, continue the rest of the medications. I would also add Toradol to the current regimen. Liver biopsy today. Guarded prognosis. Further recommendations to follow. MMODL / [place]: [id number] /
[2018-07-23] MEDS: ONDANSETRON 4 MG/2 ML VIAL IVP PRN (19:37)
[2018-07-24] MEDS: oxyCODONE-APAP 7.5-325MG 1 EACH TAB PO PRN ×2 (00:44→07:25)
[2018-07-24] MEDS: LORazepam 0.5 MG TAB PO PRN ×3 (00:44→22:54)
[2018-07-24] MEDS: HYDROmorphone 1 MG/ML 1 ML SYRINGE IVP PRN ×3 (03:02→09:53)
[2018-07-24] MEDS: PANTOPRAZOLE 40 MG TABLET PO SCH ×2 (07:53→17:10)
[2018-07-24 08:52] LABS: Basophils % (A) 0 %; Eosinophils # (A) 0.2 k/uL (0-0.7); Eosinophils % (A) 2 %; HCT 40.2 % (34.0-46.0); HGB 13.3 gm/dL (11.4-16.0); Lymphocytes # (A) 0.6 k/uL (1.0-4.8); Lymphocytes % (A) 6 %; MCH 32.5 pg (25.0-35.0); MCHC 33.1 g/dL (31.0-37.0); MCV 98.1 fL (80.0-100.0); Mean Platelet Volume 7.6; Monocytes # (A) 1.2 k/uL (0-1.0); Monocytes % (A) 11 %; Neutrophils # (A) 8.7 k/uL (1.3-7.7); Neutrophils % (A) 80 %; Platelet Count 142 k/uL (150-450); RDW 12.3 % (11.5-15.5); WBC 10.8 k/uL (3.8-10.6)
[2018-07-24 09:16] LABS: ALT 30 U/L (9-52); AST 59 U/L (14-36); Albumin 3.3 g/dL (3.5-5.0); Alkaline Phosphatase 294 U/L (38-126); Anion Gap 8 mmol/L; Blood Urea Nitrogen 8 mg/dL (7-17); Calcium 9.1 mg/dL (8.4-10.2); Carbon Dioxide 26 mmol/L (22-30); Chloride 101 mmol/L (98-107); Glucose 98 mg/dL (74-99); Potassium 4.4 mmol/L (3.5-5.1); Sodium 135 mmol/L (137-145); Total Bilirubin 1.1 mg/dL (0.2-1.3); Total Protein 6.1 g/dL (6.3-8.2)
[2018-07-24] MEDS: SENNOSIDES-DOCUSATE SODIUM 1 EACH TAB PO SCH ×2 (12:39→20:06)
[2018-07-24] MEDS: oxyCODONE-APAP 10-325MG 1 EACH TAB PO PRN ×3 (12:39→21:42)
[2018-07-24] MEDS: ONDANSETRON 4 MG/2 ML VIAL IVP PRN ×2 (12:46→21:46)
--- NOTE | 2018-07-24 15:11 | PN ---
PROGRESS NOTE DATE OF SERVICE: 07/24/2018 This is a 53-year-old woman who was admitted with right upper quadrant abdominal pain, had a possible hepatomegaly. Patient had liver biopsy yesterday. The final reports are pending at this time. No chest pain. No palpitations. No fever. PHYSICAL EXAM: Alert and oriented x3, pulse 94, blood pressure 107/69, respiration 18, temperature 98.7, pulse ox 92% on room air. HEENT: Conjunctivae normal. Oral mucosa moist. Neck is no jugular venous distention. No carotid bruit, no lymph node enlargement. CARDIOVASCULAR SYSTEM: S1, S2, muffled. RESPIRATORY: Breath sounds are diminished in the bases. A few scattered rhonchi, no crackles. ABDOMEN: Soft. Hepatomegaly, slightly tender. No guarding. No rigidity. No mass palpable. LEGS: No edema, no swelling. NERVOUS SYSTEM: No focal deficits. LABS: At this time WBC is 10.8, hemoglobin is 13.2, sodium 135, alk phos is 294. ASSESSMENT: 1. Right upper quadrant abdominal pain with possible hepatomegaly, rule out metastatic malignancy with failure of outpatient treatment. 2. History of common bile duct malignancy, status post Whipple procedure. 3. Increased WBC. 4. History of nicotine dependence. 5. Increase random blood sugar. 6. History of increased alkaline phosphatase. 7. Possibly urinary tract infection. RECOMMENDATION: Continue current management and symptomatic treatment. Continue with the pain management. Await biopsy report. Increase ambulation. Case Management to evaluate the home situation. Otherwise, closely follow with Hematology, Oncology. Further recommendations to follow. MMODL / IJN: [id number] /
[2018-07-24] MEDS: cefTRIAXone IN SWFI 1,000 MG/10 ML SYRINGE IVP SCH (17:10)
--- NOTE | 2018-07-24 18:38 | P.PN ---
Subjective Progress Note Date: 07/24/18 Principal diagnosis: intractable right upper quadrant pain Patient seen today in follow-up. Liver biopsy yesterday, path pending. Pain is still not well controlled, she cannot determine what meds are helping the pain, pain continues to be in RUQ area, persistent, stabbing, worse with movement. No fever, nausea, ESLMA, she has concerns that she may be getting constipated. No swelling or bleeding. Objective - Vital Signs Vital signs: Vital Signs Temp 98.1 F 07/24/18 15:13 Pulse 87 07/24/18 15:13 Resp 18 07/24/18 15:13 BP 113/66 07/24/18 15:13 Pulse Ox 94 L 07/24/18 15:13 Intake & Output 07/23/18 07/24/18 07/24/18 18:59 06:59 18:59 Intake Total 720 Balance 720 Weight 75.296 kg Intake: Oral 720 Other: Voiding Method Toilet Toilet Toilet # Voids 3 1 3 # Bowel Movements 1 1 - Constitutional General appearance: Present: average body habitus, disheveled, mild distress - EENT Eyes: Present: anicteric sclerae - Respiratory Details: respirations even and unlabored - Cardiovascular Rhythm: regular - Gastrointestinal General gastrointestinal: Present: tenderness Localized gastrointestinal: tender: RUQ, epigastric periumbilical - Integumentary Integumentary: Present: normal - Neurologic Neurologic: Present: CNII-XII intact - Musculoskeletal Musculoskeletal: Present: strength equal bilaterally - Psychiatric Psychiatric: Present: A&O x's 3, intact judgment & insight - Labs CBC & Chem 7: 07/24/18 08:00 07/24/18 08:00 Labs: Abnormal Lab Results - Last 24 Hours (Table) 07/24/18 07/24/18 Range/Units 08:00 08:00 WBC 10.8 H (3.8-10.6) k/uL Plt Count 142 L (150-450) k/uL Neutrophils # 8.7 H (1.3-7.7) k/uL Lymphocytes # 0.6 L (1.0-4.8) k/uL Monocytes # 1.2 H (0-1.0) k/uL Sodium 135 L (137-145) mmol/L Creatinine 0.51 L (0.52-1.04) mg/dL AST 59 H (14-36) U/L Alkaline Phosphatase 294 H (38-126) U/L Total Protein 6.1 L (6.3-8.2) g/dL Albumin 3.3 L (3.5-5.0) g/dL Assessment and Plan (1) Intractable pain Narrative/Plan: Pain meds continue to need adjustment. Senna ordered for prevention narcotic induced constipation, Miralax PRN Current Visit: Yes Status: Acute Priority: High Code(s): R52 - PAIN, UNSPECIFIED SNOMED Code(s): 85055160 (2) Primary bile duct adenocarcinoma Narrative/Plan: S/P liver biopsy, path pending. Concerns for metastatic disease. We cont to follow Current Visit: Yes Status: Chronic Priority: High Code(s): C24.0 - MALIGNANT NEOPLASM OF EXTRAHEPATIC BILE DUCT SNOMED Code(s): 500221529 (3) Liver mass Current Visit: Yes Status: Acute Priority: High Code(s): R16.0 - HEPATOMEGALY, NOT ELSEWHERE CLASSIFIED SNOMED Code(s): 720745485
[2018-07-24] MEDS ORDERED: POLYETHYLENE GLYCOL 3350 17 GM POWD.PACK PO PRN (18:40)
[2018-07-24 21:00] VITALS: RESP 16
[2018-07-25] MEDS: oxyCODONE-APAP 10-325MG 1 EACH TAB PO PRN ×4 (01:28→13:25)
[2018-07-25] MEDS: LORazepam 0.5 MG TAB PO PRN ×3 (05:41→13:25)
[2018-07-25 07:10] LABS: Basophils % (A) 0 %; Eosinophils # (A) 0.3 k/uL (0-0.7); Eosinophils % (A) 4 %; HCT 41.7 % (34.0-46.0); HGB 13.5 gm/dL (11.4-16.0); Lymphocytes # (A) 0.6 k/uL (1.0-4.8); Lymphocytes % (A) 7 %; MCH 31.4 pg (25.0-35.0); MCHC 32.4 g/dL (31.0-37.0); MCV 97.1 fL (80.0-100.0); Mean Platelet Volume 8.1; Monocytes % (A) 11 %; Neutrophils % (A) 77 %; Platelet Count 157 k/uL (150-450); RBC 4.29 m/uL (3.80-5.40); RDW 12.1 % (11.5-15.5)
[2018-07-25 07:18] LABS: ALT 31 U/L (9-52); AST 51 U/L (14-36); Albumin 3.2 g/dL (3.5-5.0); Alkaline Phosphatase 264 U/L (38-126); Anion Gap 7 mmol/L; Blood Urea Nitrogen 6 mg/dL (7-17); Calcium 8.9 mg/dL (8.4-10.2); Carbon Dioxide 27 mmol/L (22-30); Chloride 102 mmol/L (98-107); Glucose 95 mg/dL (74-99); Potassium 4.3 mmol/L (3.5-5.1); Sodium 136 mmol/L (137-145); Total Protein 6.1 g/dL (6.3-8.2)
[2018-07-25] MEDS: PANTOPRAZOLE 40 MG TABLET PO SCH (07:28)
[2018-07-25] MEDS: NICOTINE 14MG/24HR PATCH TRANSDERM SCH (07:28)
[2018-07-25] MEDS: SENNOSIDES-DOCUSATE SODIUM 1 EACH TAB PO SCH (07:33)
[2018-07-25] MEDS: ONDANSETRON 4 MG/2 ML VIAL IVP PRN ×2 (07:33→13:23)
[2018-07-25 16:06] VITALS: BP 126/76; PULSE 82; TEMP 97.4
[2018-07-25] MEDS: cefTRIAXone IN SWFI 1,000 MG/10 ML SYRINGE IVP SCH (16:15)
--- NOTE | 2018-07-25 18:36 | DS ---
DISCHARGE SUMMARY DATE OF SERVICE: 07/25/2018 FINAL DIAGNOSES: 1. Right upper quadrant abdominal pain with possible hepatomegaly, rule out metastatic malignancy with failure of outpatient treatment. 2. History of CBD malignancy status post Whipple procedure. 3. Status post liver biopsy. 4. Increased WBC. 5. History of nicotine dependence. 6. Increased random blood sugar. 7. History increased alkaline phosphatase. 8. Urinary tract infection. DISCHARGE DISPOSITION: Patient is being discharged in stable condition with guarded prognosis. HISTORY OF PRESENT ILLNESS: This 53-year-old woman with a past medical history of multiple medical problems was admitted with right upper quadrant abdominal pain. Patient had hepatomegaly. Suspicious lesion noted initially as outpatient. The patient underwent liver biopsy. Pain was treated symptomatically. Patient improved significantly. Liver biopsy reports are pending at this time. On exam vitals are stable. Cardiovascular: S1, S2. Abdomen: Soft. Hepatomegaly present. Nervous System: No focal deficit. DISCHARGE ADVICE: 1. Diet is cardiac. 2. Activity limited until followup. 3. Follow with Dr. Agustin in 2-3 days. 4. Follow with Dr. Chowdary as advised. MEDICATIONS: 1. [place] 10 mg q.6h p.r.n. 2. Ativan 0.5 mg b.i.d. 3. Zofran 4 mg t.i.d. p.r.n. 4. Ceftin 500 mg p.o. b.i.d. for 5 days. 5. Habitrol 14 daily. 6. Protonix 40 mg p.o. b.i.d. 7. MiraLAX 17 g q.h.s. 8. Senna 1 tablet p.o. b.i.d. MMODL / IJN: [id number] /
--- NOTE | 2018-07-25 18:51 | P.PN ---
Subjective Progress Note Date: 07/25/18 Principal diagnosis: Adenocarcinoma status Post biliary Stent Patient seen and evaluated, still complaints pain. Objective - Vital Signs Vital signs: Vital Signs Temp 97.4 F L 07/25/18 15:00 Pulse 82 07/25/18 16:00 Resp 16 07/25/18 16:00 BP 126/76 07/25/18 15:00 Pulse Ox 91 L 07/25/18 15:00 Intake & Output 07/24/18 07/25/18 07/25/18 18:59 06:59 18:59 Intake Total 360 Balance 360 Weight 75.296 kg 75.296 kg Intake: Oral 360 Other: Voiding Method Toilet Toilet Toilet # Voids 3 1 2 # Bowel Movements 1 1 - Exam Constitutional General appearance: Present: average body habitus, disheveled, mild distress - EENT Eyes: Present: anicteric sclerae - Respiratory Details: respirations even and unlabored - Cardiovascular Rhythm: regular - Gastrointestinal General gastrointestinal: Present: tenderness Localized gastrointestinal: tender: RUQ, epigastric periumbilical - Integumentary Integumentary: Present: normal - Neurologic Neurologic: Present: CNII-XII intact - Musculoskeletal Musculoskeletal: Present: strength equal bilaterally - Psychiatric Psychiatric: Present: A&O x's 3, intact judgment & insight - Labs CBC & Chem 7: 07/25/18 06:30 07/25/18 06:30 Labs: Abnormal Lab Results - Last 24 Hours (Table) 07/25/18 07/25/18 Range/Units 06:30 06:30 Lymphocytes # 0.6 L (1.0-4.8) k/uL Sodium 136 L (137-145) mmol/L BUN 6 L (7-17) mg/dL Creatinine 0.46 L (0.52-1.04) mg/dL AST 51 H (14-36) U/L Alkaline Phosphatase 264 H (38-126) U/L Total Protein 6.1 L (6.3-8.2) g/dL Albumin 3.2 L (3.5-5.0) g/dL Assessment and Plan Plan: Assessment and Plan (1) Intractable pain Narrative/Plan: - Pain meds continue to need adjustment. - Discharging patient with Percocet, she did not fill last [place] prescription from 10 days prior - Fentanyl increased to 25mcg - She has follow-up Saturday in office to re-evaluate and review pathology Senna ordered for prevention narcotic induced constipation, Miralax PRN Prescriptions for controlled medications of fentanyl, ativan, and percocet handed to patient and instructed on use risks and benefots. MAPS pulled and opioid contract signed and monitored per oncology office Current Visit: Yes Status: Acute Priority: High Code(s): R52 - PAIN, UNSPECIFIED SNOMED Code(s): 96313326 (2) Primary bile duct adenocarcinoma Narrative/Plan: S/P liver biopsy, path pending. Concerns for metastatic disease. We cont to follow Current Visit: Yes Status: Chronic Priority: High Code(s): C24.0 - MALIGNANT NEOPLASM OF EXTRAHEPATIC BILE DUCT SNOMED Code(s): 161478818 (3) Liver mass Current Visit: Yes Status: Acute Priority: High Code(s): R16.0 - HEPATOMEGALY, NOT ELSEWHERE CLASSIFIED SNOMED Code(s): 898170928
--- NOTE | 2018-07-31 09:52 | CDI ---
Last Revision, October 2017 Documentation Clarification Form Date: 07/31/18 From: Camila Mott Phone: If you have a question regarding this query, please contact Rosalva Rogers at [phone] between 8am and 5pm. Admit Date: 07/21/2018 3:44:00 PM Patient Name: Sharmin Adame Visit Number: [id number] Discharge Date: 07/25/18 ATTENTION: The Clinical Documentation Specialists (CDI) and [facility] Coding Staff appreciate your assistance in clarifying documentation. Please respond to the clarification below the line at the bottom and electronically sign. The CDI & [facility] Coding staff will review the response and follow-up if needed. Please note: Queries are made part of the Legal Health Record. If you have any questions, please contact the author of this message via ITS. Jennifer Cason MD The patient was admitted with right upper quatdrant pain and has a liver mass that was biopsied. 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 Documentation states: Patient has hepatomegaly. Suspicious lesoin noted initially as outpatient. Patient history/risk factors: Patient has a history of common bile duct malignancy and underwent whipple procedure. Clinical Indicators: Liver mass, abdominal pain and hepatomegaly. Treatment: Biopasy of the liver mass. In your professional opinion, do you agree with the pathology report specifying metastatic adenocarcinoma of the liver? 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 [facility]
--- NOTE | 2018-08-05 15:57 | CDI ---
Documentation Clarification Form Date: 08/05/18 From: Camila Mott Admit Date: 07/21/2018 3:44:00 PM Patient Name: Sharmin Adame Visit Number: [id number] Discharge Date: 07/25/18 ATTENTION: The Clinical Documentation Specialists (CDI) and [facility] Coding Staff appreciate your assistance in clarifying documentation. Please respond to the clarification below the line at the bottom and electronically sign. The CDI & [facility] Coding staff will review the response and follow-up if needed. Please note: Queries are made part of the Legal Health Record. If you have any questions, please contact the author of this message via ITS. Jennifer Alonso MD The patient was admitted with right upper quadrant pain and has a liver mass that was biopsied. 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 For final diagnosis reporting accuracy, please document the pathology report diagnosis specifying metastatic adenocarcinoma of the liver below or in addendum to Discharge Summary. thank you answered MTDD
== END 2018-07-25 16:57 | disposition home or self-care (01) | DRG 436 ==
LOC: EC 13:29 → 5MS5E 15:44
PROVIDERS: ADMIT Internal Medicine; ATTEND Internal Medicine
PROC: 0FB03ZX Excision of Liver, Percutaneous Approach, Diagnostic (ICD-10-PCS; principal; 2018-07-23)
DX: C78.7 Secondary malignant neoplasm of liver and intrahepatic bile duct (principal); N39.0 Urinary tract infection, site not specified; G89.3 Neoplasm related pain (acute) (chronic); F41.9 Anxiety disorder, unspecified; R16.0 Hepatomegaly, not elsewhere classified; R74.8 Abnormal levels of other serum enzymes; R73.9 Hyperglycemia, unspecified; D72.829 Elevated white blood cell count, unspecified; Z79.899 Other long term (current) drug therapy; Z85.09 Personal history of malignant neoplasm of other digestive organs; Z90.411 Acquired partial absence of pancreas
CPT/HCPCS: 36415; 47000; 76942; 80053; 81001; 82150; 83690; 85025; 85610; 88307; 88341; 88342; 96361; 96374; 96375; 99284

== ENCOUNTER 2018-08-27 17:14 | Inpatient (IN) | payer OTHER ==
[2018-08-27] MEDS ORDERED: SODIUM CHLORIDE 0.9% 1,000 ML IV STA (17:32)
--- NOTE | 2018-08-27 17:54 | ED ---
General Adult HPI - General Chief complaint: Recheck/Abnormal Lab/Rx Stated complaint: Jaundice Time Seen by Provider: 08/27/18 17:16 Source: patient, EMS, RN notes reviewed Mode of arrival: EMS Limitations: no limitations - History of Present Illness Initial comments: This is a 53-year-old female who presents to the emergency department with chief complaint of jaundice. 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 In June 2017 she had the Whipple procedure performed by Dr. Chowdary. She then went on to have chemotherapy for 6 months and radiation for 5 weeks. Patient states that over the last couple months she has not been feeling well. She has felt weak, tired and hasn had an increase in pain. A computed tomography scan was performed in July which revealed a 2 x 2 centimeter mass on patient's liver. She states that she begins chemotherapy on Saturday. Patient states that this morning when she woke up she thought she looked a little different when looking in the mirror, however she states that the lights are dark in the bathroom so didn't think much of it. She woke up a few hours ago and her roommate told her that her eyes appeared yellow. Patient states that her skin is turning yellow and it is spreading. She also states that over the past couple of weeks her urine has been dark in color. She reports nausea and diarrhea today. She denies any increase in pain. She states that she is currently taking Zofran, Ativan, Percocet and morphine. She denies any other medical issues. She denies any fevers or chills, chest pain or shortness of breath, dysuria. - Related Data Home Medications Medication Instructions Recorded Confirmed Ondansetron HCl [Zofran] 4 mg PO TID PRN 07/04/18 08/27/18 Morphine Sulfate [Ms Contin] 30 mg PO Q12HR PRN 08/27/18 08/27/18 Sennosides-Docusate Sodium 1 tab PO Q48H PRN 08/27/18 08/27/18 [Senokot-S] Previous Rx's Medication Instructions Recorded LORazepam [Ativan] 0.5 mg PO Q8HR PRN #90 tablet 07/25/18 oxyCODONE HCL/ACETAMINOPHEN 1 tab PO Q6HR PRN #60 tab 07/25/18 [Percocet 10-325 mg] Allergies Allergy/AdvReac Type Severity Reaction Status Date / Time No Known Allergies Allergy Verified 08/27/18 17:32 Review of Systems ROS Statement: Those systems with pertinent positive or pertinent negative responses have been documented in the HPI. ROS Other: All systems not noted in ROS Statement are negative. Past Medical History Past Medical History: Cancer Additional Past Medical History / Comment(s): Carcinoma of bile duct dx 2017 - whipple procedure done at [facility]. has "spot on liver" was scheduled for bx 07-22-18 History of Any Multi-Drug Resistant Organisms: None Reported Past Surgical History: Tonsillectomy Additional Past Surgical History / Comment(s): Whipple Procedure Past Anesthesia/Blood Transfusion Reactions: No Reported Reaction Past Psychological History: Anxiety Smoking Status: Current every day smoker Past Alcohol Use History: None Reported Past Drug Use History: None Reported - Past Family History Mother History Unknown: Yes Father History Unknown: Yes General Exam - General Exam Comments Initial Comments: General: Awake and alert, well-developed; in no apparent distress. HEENT: Head atraumatic, normocephalic. Pupils are equal, round and reactive to light. Extraocular movements intact. Icterus of bilateral sclera is noted. Oropharynx moist without erythema or exudate. Neck: Supple. Normal ROM. Cardiovascular: Regular rate and rhythm. No murmurs, rubs or gallops. Chest symmetrical. Respiratory: Lungs clear to auscultation bilaterally. No wheezes, rales or rhonchi. Normal respiratory effort with no use of accessory muscles. Abdomen: Soft, non-distended. Tenderness on palpation of the right upper quadrant, however patient states this is baseline. No rigidity, rebound or guarding. Normal bowel sounds in all 4 quadrants. Musculoskeletal: Normal ROM, no tenderness bilateral upper and lower extremities. Ambulating normally. Skin: Yellow, dry and intact. Neurological: Alert and oriented x3. CN II-XII grossly intact. Speech is fluent and answers are appropriate. No focal neuro deficits. Psychiatric: Normal mood and affect. No overt signs of depression or anxiety noted. Limitations: no limitations Course Vital Signs 08/27/18 08/27/18 08/27/18 17:24 18:54 19:00 Temperature 98.1 F Pulse Rate 98 87 87 Respiratory 19 18 21 Rate Blood Pressure 100/68 104/67 104/67 O2 Sat by Pulse 96 95 95 Oximetry 08/27/18 08/27/18 19:30 19:40 Temperature Pulse Rate 86 87 Respiratory 21 22 Rate Blood Pressure 103/81 103/65 O2 Sat by Pulse 95 98 Oximetry Medical Decision Making - Medical Decision Making This is a 53-year-old female who presents to the emergency department with chief complaint of jaundice. Patient does have a history of biliary cancer and was recently diagnosed with a metastatic hepatic adenocarcinoma. She is scheduled for chemotherapy this coming Saturday. Patient states that she noticed yellowing of her skin and eyes today. She denies any increase in pain or other symptoms. Whipple procedure was performed last June 2017 at [place]. Patient's oncologist is Dr. Chowdary. On physical examination, there is yellowing of the skin and sclera. Full workup was performed. CBC does reveal a white count at 14.0 with a left shift of 12.3. Bilirubin is markedly elevated at 18.5 with a conjugated bilirubin of 13.4 and an unconjugated bilirubin at 1.9. Lactic acid is within normal limits. AST elevated at 145, ALT 54 and alkaline phosphatase 926. Urine is positive for nitrite and moderate bacteria. Patient was started on IV Rocephin. Case and laboratory findings were discussed with attending physician, Dr. De La Torre. Patient will be admitted to Dr. Anne with consults to Dr. Carlos and Dr. Dotson for jaundice, urinary tract infection, leukocytosis, history of biliary cancer and hyperbilirubinemia. Findings were discussed with patient and she is in agreement for admission. Vital signs are stable and she is in no acute distress. - Lab Data Result diagrams: 08/27/18 17:57 08/27/18 17:57 Lab Results 08/27/18 08/27/18 08/27/18 Range/Units 17:57 17:57 17:57 WBC 14.0 H (3.8-10.6) k/uL RBC 4.01 (3.80-5.40) m/uL Hgb 12.8 (11.4-16.0) gm/dL Hct 40.4 (34.0-46.0) % MCV 100.7 H (80.0-100.0) fL MCH 31.9 (25.0-35.0) pg MCHC 31.6 (31.0-37.0) g/dL RDW 16.4 H (11.5-15.5) % Plt Count 261 (150-450) k/uL Neutrophils % 88 % Lymphocytes % 3 % Monocytes % 6 % Eosinophils % 1 % Basophils % 0 % Neutrophils # 12.3 H (1.3-7.7) k/uL Lymphocytes # 0.5 L (1.0-4.8) k/uL Monocytes # 0.9 (0-1.0) k/uL Eosinophils # 0.2 (0-0.7) k/uL Basophils # 0.1 (0-0.2) k/uL Anisocytosis Slight Macrocytosis Slight PT (9.0-12.0) sec INR (<1.2) APTT (22.0-30.0) sec Sodium 132 L (137-145) mmol/L Potassium 3.9 (3.5-5.1) mmol/L Chloride 99 (98-107) mmol/L Carbon Dioxide 24 (22-30) mmol/L Anion Gap 9 mmol/L BUN 8 (7-17) mg/dL Creatinine 0.37 L (0.52-1.04) mg/dL Est GFR (CKD-EPI)AfAm >90 (>60 ml/min/1.73 sqM) Est GFR (CKD-EPI)NonAf >90 (>60 ml/min/1.73 sqM) Glucose 121 H (74-99) mg/dL Plasma Lactic Acid Jaya 1.8 (0.7-2.0) mmol/L Calcium 9.0 (8.4-10.2) mg/dL Total Bilirubin 18.6 H* (0.2-1.3) mg/dL Conjugated Bilirubin 13.4 H (0.0-0.3) mg/dL Unconjugated Bilirubin 1.9 H (0.0-1.1) mg/dL Delta Bilirubin 3.3 H (0.0-0.2) mg/dL AST 145 H (14-36) U/L ALT 54 H (9-52) U/L Alkaline Phosphatase 926 H (38-126) U/L Ammonia 33 H (<30) umol/L Lactate Dehydrogenase (313-618) U/L Total Protein 6.5 (6.3-8.2) g/dL Albumin 2.9 L (3.5-5.0) g/dL Amylase <30 L (30-110) U/L Lipase <10 L (23-300) U/L Urine Color Urine Appearance (Clear) Urine pH (5.0-8.0) Ur Specific Preston (1.001-1.035) Urine Protein (Negative) Urine Glucose (UA) (Negative) Urine Ketones (Negative) Urine Blood (Negative) Urine Nitrite (Negative) Urine Bilirubin (Negative) Urine Urobilinogen (<2.0) mg/dL Ur Leukocyte Esterase (Negative) Urine RBC (0-5) /hpf Urine WBC (0-5) /hpf Ur Squamous Epith Cells (0-4) /hpf Urine Bacteria (None) /hpf Urine Mucus (None) /hpf Urine Yeast (Budding) (None) /hpf Hepatitis A IgM Ab 08/27/18 08/27/18 08/27/18 Range/Units 17:57 17:57 17:57 WBC (3.8-10.6) k/uL RBC (3.80-5.40) m/uL Hgb (11.4-16.0) gm/dL Hct (34.0-46.0) % MCV (80.0-100.0) fL MCH (25.0-35.0) pg MCHC (31.0-37.0) g/dL RDW (11.5-15.5) % Plt Count (150-450) k/uL Neutrophils % % Lymphocytes % % Monocytes % % Eosinophils % % Basophils % % Neutrophils # (1.3-7.7) k/uL Lymphocytes # (1.0-4.8) k/uL Monocytes # (0-1.0) k/uL Eosinophils # (0-0.7) k/uL Basophils # (0-0.2) k/uL Anisocytosis Macrocytosis PT 13.2 H (9.0-12.0) sec INR 1.4 H (<1.2) APTT 23.7 (22.0-30.0) sec Sodium (137-145) mmol/L Potassium (3.5-5.1) mmol/L Chloride (98-107) mmol/L Carbon Dioxide (22-30) mmol/L Anion Gap mmol/L BUN (7-17) mg/dL Creatinine (0.52-1.04) mg/dL Est GFR (CKD-EPI)AfAm (>60 ml/min/1.73 sqM) Est GFR (CKD-EPI)NonAf (>60 ml/min/1.73 sqM) Glucose (74-99) mg/dL Plasma Lactic Acid Jaya (0.7-2.0) mmol/L Calcium (8.4-10.2) mg/dL Total Bilirubin 18.5 H* (0.2-1.3) mg/dL Conjugated Bilirubin (0.0-0.3) mg/dL Unconjugated Bilirubin (0.0-1.1) mg/dL Delta Bilirubin (0.0-0.2) mg/dL AST (14-36) U/L ALT (9-52) U/L Alkaline Phosphatase (38-126) U/L Ammonia (<30) umol/L Lactate Dehydrogenase 572 (313-618) U/L Total Protein (6.3-8.2) g/dL Albumin (3.5-5.0) g/dL Amylase (30-110) U/L Lipase (23-300) U/L Urine Color Dark Brown Urine Appearance Cloudy H (Clear) Urine pH 6.5 (5.0-8.0) Ur Specific Preston 1.019 (1.001-1.035) Urine Protein Trace H (Negative) Urine Glucose (UA) Negative (Negative) Urine Ketones Negative (Negative) Urine Blood Small H (Negative) Urine Nitrite Positive H (Negative) Urine Bilirubin 4+ H (Negative) Urine Urobilinogen 2.0 (<2.0) mg/dL Ur Leukocyte Esterase Negative (Negative) Urine RBC 2 (0-5) /hpf Urine WBC 3 (0-5) /hpf Ur Squamous Epith Cells 4 (0-4) /hpf Urine Bacteria Moderate H (None) /hpf Urine Mucus Rare H (None) /hpf Urine Yeast (Budding) Rare H (None) /hpf Hepatitis A IgM Ab 08/27/18 Range/Units 18:11 WBC (3.8-10.6) k/uL RBC (3.80-5.40) m/uL Hgb (11.4-16.0) gm/dL Hct (34.0-46.0) % MCV (80.0-100.0) fL MCH (25.0-35.0) pg MCHC (31.0-37.0) g/dL RDW (11.5-15.5) % Plt Count (150-450) k/uL Neutrophils % % Lymphocytes % % Monocytes % % Eosinophils % % Basophils % % Neutrophils # (1.3-7.7) k/uL Lymphocytes # (1.0-4.8) k/uL Monocytes # (0-1.0) k/uL Eosinophils # (0-0.7) k/uL Basophils # (0-0.2) k/uL Anisocytosis Macrocytosis PT (9.0-12.0) sec INR (<1.2) APTT (22.0-30.0) sec Sodium (137-145) mmol/L Potassium (3.5-5.1) mmol/L Chloride (98-107) mmol/L Carbon Dioxide (22-30) mmol/L Anion Gap mmol/L BUN (7-17) mg/dL Creatinine (0.52-1.04) mg/dL Est GFR (CKD-EPI)AfAm (>60 ml/min/1.73 sqM) Est GFR (CKD-EPI)NonAf (>60 ml/min/1.73 sqM) Glucose (74-99) mg/dL Plasma Lactic Acid Jaya (0.7-2.0) mmol/L Calcium (8.4-10.2) mg/dL Total Bilirubin (0.2-1.3) mg/dL Conjugated Bilirubin (0.0-0.3) mg/dL Unconjugated Bilirubin (0.0-1.1) mg/dL Delta Bilirubin (0.0-0.2) mg/dL AST (14-36) U/L ALT (9-52) U/L Alkaline Phosphatase (38-126) U/L Ammonia (<30) umol/L Lactate Dehydrogenase (313-618) U/L Total Protein (6.3-8.2) g/dL Albumin (3.5-5.0) g/dL Amylase (30-110) U/L Lipase (23-300) U/L Urine Color Urine Appearance (Clear) Urine pH (5.0-8.0) Ur Specific Preston (1.001-1.035) Urine Protein (Negative) Urine Glucose (UA) (Negative) Urine Ketones (Negative) Urine Blood (Negative) Urine Nitrite (Negative) Urine Bilirubin (Negative) Urine Urobilinogen (<2.0) mg/dL Ur Leukocyte Esterase (Negative) Urine RBC (0-5) /hpf Urine WBC (0-5) /hpf Ur Squamous Epith Cells (0-4) /hpf Urine Bacteria (None) /hpf Urine Mucus (None) /hpf Urine Yeast (Budding) (None) /hpf Hepatitis A IgM Ab NEGATIVE - Radiology Data Radiology results: report reviewed Ultrasound gallbladder impression: Common bile duct was not visible. Extensive hepatic metastatic disease. No ascites. Right kidney shows no hydronephrosis. Gallbladder is surgically absent. Disposition Clinical Impression: Urinary tract infection, Liver mass, Primary bile duct adenocarcinoma, Jaundice , Leukocytosis, Hyperbilirubinemia Disposition: ADMITTED IP TO THIS HOSP Condition: Fair Is patient prescribed a controlled substance at d/c from ED?: No Time of Disposition: 19:30
[2018-08-27 18:14] LABS: Anisocytosis Slight; Basophils # (A) 0.1 k/uL (0-0.2); Basophils % (A) 0 %; Eosinophils # (A) 0.2 k/uL (0-0.7); Eosinophils % (A) 1 %; HCT 40.4 % (34.0-46.0); HGB 12.8 gm/dL (11.4-16.0); Lymphocytes # (A) 0.5 k/uL (1.0-4.8); Lymphocytes % (A) 3 %; MCH 31.9 pg (25.0-35.0); MCHC 31.6 g/dL (31.0-37.0); MCV 100.7 fL (80.0-100.0); Macrocytosis Slight; Mean Platelet Volume 7.7; Monocytes # (A) 0.9 k/uL (0-1.0); Monocytes % (A) 6 %; Neutrophils # (A) 12.3 k/uL (1.3-7.7); Neutrophils % (A) 88 %; Platelet Count 261 k/uL (150-450); RBC 4.01 m/uL (3.80-5.40); RDW 16.4 % (11.5-15.5)
[2018-08-27 18:20] LABS: Appearance,Urine Cloudy (Clear); Bacteria,Urine Moderate /hpf; Bilirubin,Urine 4+ (Negative); Blood,Urine Small (Negative); Budding Yeast,Urine Rare /hpf; Color,Urine Dark Brown; Glucose,Urine (UA) Negative (Negative); Ketones,Urine Negative (Negative); Leukocyte Esterase,Urine Negative (Negative); Mucus,Urine Rare /hpf; Nitrite,Urine Positive (Negative); PH, Urine 6.5 (5.0-8.0); Protein,Urine Trace (Negative); RBC,Urine 2 /hpf (0-5); Specific Gravity,Urine 1.019 (1.001-1.035); Squamous Epithelial Cell,Urine 4 /hpf (0-4); WBC,Urine 3 /hpf (0-5)
[2018-08-27 18:28] LABS: ALT 54 U/L (9-52); AST 145 U/L (14-36); Albumin 2.9 g/dL (3.5-5.0); Alkaline Phosphatase 926 U/L (38-126); Amylase <30 U/L (30-110); Anion Gap 9 mmol/L; Bilirubin, Conjugated 13.4 mg/dL (0.0-0.3); Bilirubin, Delta 3.3 mg/dL (0.0-0.2); Bilirubin,Unconjugated 1.9 mg/dL (0.0-1.1); Blood Urea Nitrogen 8 mg/dL (7-17); Carbon Dioxide 24 mmol/L (22-30); Chloride 99 mmol/L (98-107); Glucose 121 mg/dL (74-99); Lipase <10 U/L (23-300); Potassium 3.9 mmol/L (3.5-5.1); Sodium 132 mmol/L (137-145); Total Protein 6.5 g/dL (6.3-8.2)
[2018-08-27 18:29] LABS: Lactic Acid, Venous 1.8 mmol/L (0.7-2.0)
[2018-08-27 18:30] LABS: Total Bilirubin 18.5 mg/dL (0.2-1.3)
[2018-08-27 18:31] LABS: Total Bilirubin 18.6 mg/dL (0.2-1.3)
[2018-08-27 18:54] LABS: INR 1.4 (<1.2); Partial Thromboplastin Time 23.7 sec (22.0-30.0); Prothrombin Time 13.2 sec (9.0-12.0)
[2018-08-27 19:21] LABS: Hepatitis A Antibody IgM NEGATIVE
[2018-08-27] MEDS ORDERED: KETOROLAC 30 MG/ML 1 ML VIAL IVP PRN (19:26)
[2018-08-27] MEDS ORDERED: IBUPROFEN 400 MG TAB PO PRN (19:26)
[2018-08-27] MEDS ORDERED: NALOXONE 0.4 MG/ML 1 ML VIAL IV PRN (19:26)
--- NOTE | 2018-08-27 20:14 | US ---
EXAMINATION TYPE: US gallbladder DATE OF EXAM: 08/27/2018 COMPARISON: NONE CLINICAL HISTORY: Pain. Jaundice liver mets and bile duct CA whipple procedure in April GB removed.Exa m limitations unable to penetrate well. EXAM MEASUREMENTS: Liver Length: 21.6 cm Gallbladder Wall: Surgically absent cm CBD: obscured by bowel gas cm Right Kidney: 11.4 x 4.8 x 5.9 cm Pancreas: Obscured by bowel gas Liver: Heterogenous multiple lesions visualized. Gallbladder: Surgically absent CBD: Not well visualized Right Kidney: No masses or hydronephrosis seen. IMPRESSION: The common bile duct was not visible. Extensive hepatic metastatic disease. No ascites. R ight kidney shows no hydronephrosis.
[2018-08-27] MEDS: SODIUM CHLORIDE 0.9% 1,000 ML IV SCH (20:24)
[2018-08-27] MEDS ORDERED: LORazepam 0.5 MG TAB PO PRN (21:21)
[2018-08-27] MEDS ORDERED: SENNOSIDES-DOCUSATE SODIUM 1 EACH TAB PO PRN (21:21)
[2018-08-27] MEDS: MORPHINE SULFATE 4 MG/ML SYRINGE IV PRN (21:29)
[2018-08-28] MEDS: MORPHINE SULFATE 4 MG/ML SYRINGE IV PRN ×2 (02:23→08:15)
[2018-08-28 03:20] LABS: Hepatitis B Core IgM Non-Reactive (Non-Reactive)
[2018-08-28] MEDS: SODIUM CHLORIDE 0.9% 1,000 ML IV SCH ×2 (05:50→17:32)
[2018-08-28] MEDS: ONDANSETRON 4 MG/2 ML VIAL IVP PRN ×2 (08:21→17:31)
--- NOTE | 2018-08-28 09:56 | P.CONS ---
History of Present Illness - Reason for Consult Consult date: 08/28/18 metastatic biliary carcinoma Requesting physician: Danyell Gillis - Chief Complaint jaundice - History of Present Illness Ms. Adame was first evaluated in May 2017 at [facility] for obstructive jaundice, CT revealed obstruction at common bile duct, MRI of liver done in April 2017 showed intra and extra hepatic duct dilation, ERCP performed was complicated by pancreatitis, repeat ERCP and stent placement was done on 05/16with negative cytology, 05/28/17 she had exploratory laparotomy, open chloecystectomy, whipple procedure and drainage of pancreatic pseudo cyst, pathology revealed moderately differentiated adenocarcinoma of common bile duct , 2.2 cm, invading the duodenum, negative margine, 20 regional nodes were negative. She started adjuvant cisplatin/xeloda in Jul and completed it on . Treatment f/u CT CAP 11/28/17 revealed soft tissue density in retroperitoneum consistent with postop scarring. She started concurrent Xeloda/ XRT in early January 2018, treatment completed February. CT 06/25/18 revealed new right hepatic lobe lesion. 07/23/18 U/S guided liver biopsy was positive for recurrent carcinoma, MSI stable, PDL-1 <1%. She was seen in office by Dr. Chowdary on 07/29 (biomarkers were pending). After results, treatment plan with Oxaliplatin, leucovorin and 5FU prescribed, chemo ed was on the , pt due to start next Mon. Pt states jaundice came on in the last 24 hours so she came in for evaluation, her urine has been dark for "weeks", has no appetite, no BROWNE, fever, emesis, chest pain, palpitations, her pain is on RUQ and epigastric area, constant, nothing relieves it, pain meds don't work, denies black or bloody stool, BLE swelling, rash or bleeding. She is independently ambulatory but very weak. Review of Systems 14 point ROS as stated in HPI Past Medical History Past Medical History: Cancer Additional Past Medical History / Comment(s): Carcinoma of bile duct dx 2017 - whipple procedure done at [facility]. has "spot on liver" was scheduled for bx 07-22-18 History of Any Multi-Drug Resistant Organisms: None Reported Past Surgical History: Tonsillectomy Additional Past Surgical History / Comment(s): Whipple Procedure Past Anesthesia/Blood Transfusion Reactions: No Reported Reaction Past Psychological History: Anxiety Additional Psychological History / Comment(s): lives with a friend. does'nt drive- her insurance pays for rides to [employer]. Smoking Status: Current every day smoker Past Alcohol Use History: None Reported Additional Past Alcohol Use History / Comment(s): started smoking at age 16 smikes 1 ppd. Past Drug Use History: None Reported - Past Family History Mother History Unknown: Yes Father History Unknown: Yes Medications and Allergies Home Medications Medication Instructions Recorded Confirmed Type Ondansetron HCl [Zofran] 4 mg PO TID PRN 07/04/18 08/27/18 History LORazepam [Ativan] 0.5 mg PO Q8HR PRN #90 tablet 07/25/18 08/27/18 Rx oxyCODONE HCL/ACETAMINOPHEN 1 tab PO Q6HR PRN #60 tab 07/25/18 08/27/18 Rx [Percocet 10-325 mg] Morphine Sulfate [Ms Contin] 30 mg PO Q12HR PRN 08/27/18 08/27/18 History Sennosides-Docusate Sodium 1 tab PO Q48H PRN 08/27/18 08/27/18 History [Senokot-S] Allergies Allergy/AdvReac Type Severity Reaction Status Date / Time No Known Allergies Allergy Verified 08/27/18 17:32 Physical Exam Vitals: Vital Signs Temp Pulse Pulse Resp BP BP Pulse Ox 08/28/18 05:49 98.6 F 96 20 104/64 95 08/27/18 23:00 98.3 F 93 16 97/61 94 L 08/27/18 20:20 98.5 F 08/27/18 19:40 87 22 103/65 98 08/27/18 19:30 86 21 103/81 95 08/27/18 19:00 87 21 104/67 95 08/27/18 18:54 87 18 104/67 95 08/27/18 17:24 98.1 F 98 19 100/68 96 Intake and Output 08/27/18 08/28/18 08/28/18 22:59 06:59 14:59 Intake Total 1449 Balance 1449 Intake: Intake, IV Titration 1449 Amount Sodium Chloride 0.9% 1, 400 000 ml @ 100 mls/hr IV . Q10H ANIA Rx#:[id number] Sodium Chloride 0.9% 1, 999 000 ml @ 999 mls/hr IV . Q1H1M STA Rx#:[id number] cefTRIAXone 1,000 mg In 50 Sodium Chloride 0.9% 50 ml @ 100 mls/hr IVPB Q24HR ANIA Rx#:[id number] Other: # Voids 2 Weight 70.307 kg - Constitutional General appearance: average body habitus, mild distress - EENT Eyes: EOMI, scleral icterus ENT: hearing grossly normal - Neck Neck: no lymphadenopathy - Respiratory Respiratory: bilateral: diminished (weak inspiratory effort) - Cardiovascular Rhythm: regular Heart sounds: normal: S1, S2 Abnormal Heart Sounds: no systolic murmur, no diastolic murmur, no rub, no S3 Gallop, no S4 Gallop, no click, no other leg Peripheral Edema: bilateral: None - Gastrointestinal General gastrointestinal: normal bowel sounds, soft, tenderness Localized gastrointestinal: tender: RUQ - Integumentary Integumentary: jaundiced - Neurologic Neurologic: CNII-XII intact - Musculoskeletal Musculoskeletal: strength equal bilaterally - Psychiatric flat affect Psychiatric: A&O x's 3, intact judgment & insight Results CBC & Chem 7: 08/27/18 17:57 08/27/18 17:57 Labs: Abnormal Lab Results - Last 24 Hours (Table) 08/27/18 08/27/18 08/27/18 Range/Units 17:57 17:57 17:57 WBC 14.0 H (3.8-10.6) k/uL MCV 100.7 H (80.0-100.0) fL RDW 16.4 H (11.5-15.5) % Neutrophils # 12.3 H (1.3-7.7) k/uL Lymphocytes # 0.5 L (1.0-4.8) k/uL PT (9.0-12.0) sec INR (<1.2) Sodium 132 L (137-145) mmol/L Creatinine 0.37 L (0.52-1.04) mg/dL Glucose 121 H (74-99) mg/dL Total Bilirubin 18.6 H* (0.2-1.3) mg/dL Conjugated Bilirubin 13.4 H (0.0-0.3) mg/dL Unconjugated Bilirubin 1.9 H (0.0-1.1) mg/dL Delta Bilirubin 3.3 H (0.0-0.2) mg/dL AST 145 H (14-36) U/L ALT 54 H (9-52) U/L Alkaline Phosphatase 926 H (38-126) U/L Ammonia 33 H (<30) umol/L Albumin 2.9 L (3.5-5.0) g/dL Amylase <30 L (30-110) U/L Lipase <10 L (23-300) U/L Urine Appearance (Clear) Urine Protein (Negative) Urine Blood (Negative) Urine Nitrite (Negative) Urine Bilirubin (Negative) Urine Bacteria (None) /hpf Urine Mucus (None) /hpf Urine Yeast (Budding) (None) /hpf 08/27/18 08/27/18 08/27/18 Range/Units 17:57 17:57 17:57 WBC (3.8-10.6) k/uL MCV (80.0-100.0) fL RDW (11.5-15.5) % Neutrophils # (1.3-7.7) k/uL Lymphocytes # (1.0-4.8) k/uL PT 13.2 H (9.0-12.0) sec INR 1.4 H (<1.2) Sodium (137-145) mmol/L Creatinine (0.52-1.04) mg/dL Glucose (74-99) mg/dL Total Bilirubin 18.5 H* (0.2-1.3) mg/dL Conjugated Bilirubin (0.0-0.3) mg/dL Unconjugated Bilirubin (0.0-1.1) mg/dL Delta Bilirubin (0.0-0.2) mg/dL AST (14-36) U/L ALT (9-52) U/L Alkaline Phosphatase (38-126) U/L Ammonia (<30) umol/L Albumin (3.5-5.0) g/dL Amylase (30-110) U/L Lipase (23-300) U/L Urine Appearance Cloudy H (Clear) Urine Protein Trace H (Negative) Urine Blood Small H (Negative) Urine Nitrite Positive H (Negative) Urine Bilirubin 4+ H (Negative) Urine Bacteria Moderate H (None) /hpf Urine Mucus Rare H (None) /hpf Urine Yeast (Budding) Rare H (None) /hpf US - abdomen: report reviewed Assessment and Plan (1) Jaundice Narrative/Plan: Sudden onset, suspect r/t disease. She has not started chemotherapy! Discussed with GI INPUT OUTPUT CLERK. Agree with futher imaging of the liver-MRI/CT-Await their eval and recommendations. Pt will need treatment of hepatobiliary symptoms in order to move forward with chemo Current Visit: Yes Status: Acute Priority: High Code(s): R17 - UNSPECIFIED JAUNDICE SNOMED Code(s): 92236818 (2) Chills (without fever) Narrative/Plan: Panculture work up ordered, pt is on empiric abx Current Visit: Yes Status: Acute Priority: High Code(s): R68.83 - CHILLS ( WITHOUT FEVER) SNOMED Code(s): 32487071 (3) Primary bile duct adenocarcinoma Narrative/Plan: Has not started treatment yet Current Visit: Yes Status: Chronic Priority: High Code(s): C24.0 - MALIGNANT NEOPLASM OF EXTRAHEPATIC BILE DUCT SNOMED Code(s): 043243758 (4) Neoplasm related pain Narrative/Plan: We have had no success with pain mgmt, pt cannot express herself when asked if the pain meds help her, she is just in constant pain. Did order dilaudid for her as she does not feel morphine does anything. Will titrate for comfort. Will consult pain management services to evaluate pt. Current Visit: Yes Status: Chronic Priority: High Code(s): G89.3 - NEOPLASM RELATED PAIN (ACUTE) (CHRONIC) SNOMED Code(s): 537734332
[2018-08-28] MEDS: HYDROmorphone 1 MG/ML 1 ML SYRINGE IVP PRN ×3 (11:20→20:05)
--- NOTE | 2018-08-28 11:21 | P.CONS ---
History of Present Illness - Reason for Consult Consult date: 08/28/18 Jaundice history of bile duct cancer Requesting physician: Jennifer Anne - Chief Complaint jaundice - History of Present Illness 53-year-old female diagnosed with bile duct cancer 2017 status post Whipple chemoradiation. Admitted with new onset of jaundice abdominal pain. She noticed jaundice a few days ago with dark colored urine. CT imaging June reported hepatic mass she underwent core liver biopsy 07/23/2018 with findings of metastatic adenocarcinoma consistent with primary upper GI versus pancreatobiliary tract origin. Total bilirubin around the time of biopsy was 1.0. AST 51. ALT 31. AP 264. She was seen by oncology and scheduled for chemotherapy this upcoming Saturday. On admission total bilirubin increased 18.5. Conjugated 13.4. AST 145. ALT 54. AP 926. INR 1.4. White count 14. Hemoglobin 12.8. Platelet 261. Ultrasound abdomen, bile duct not visible extensive hepatic metastatic disease no ascites. Review of Systems Constitutional: Reports weight loss no fever or chills. HEENT: Negative for migraines, blurred vision or loss, earaches, drainage, tinnitus, oral mucosal lesions, dysphagia, or odynophagia. CARDIAC: Negative for chest pain, arrhythmias, or palpitation. RESPIRATORY: Negative for shortness of breath, hemoptysis, cough, or sputum production. GI: See HPI for pertinent findings. : Negative for hematuria, urgency, frequency, polyuria, or dysuria. GYNc: Denies possibility of . Negative vaginal discharge. MUSCULOSKELETAL: Negative for muscle aches, swelling, arthritis, and arthralgias. NEUROLOGIC: Negative for stroke or TIA. ENDOCRINE: Negative for thyroid problems. SKIN: Negative for rash or itching. PSYCHIATRIC: Negative history for depression and anxiety Past Medical History Past Medical History: Cancer Additional Past Medical History / Comment(s): Carcinoma of bile duct dx 2017 - whipple procedure done at [facility]. has "spot on liver" was scheduled for bx 07-22-18 History of Any Multi-Drug Resistant Organisms: None Reported Past Surgical History: Tonsillectomy Additional Past Surgical History / Comment(s): Whipple Procedure Past Anesthesia/Blood Transfusion Reactions: No Reported Reaction Past Psychological History: Anxiety Additional Psychological History / Comment(s): lives with a friend. does'nt drive- her insurance pays for rides to [employer]. Smoking Status: Current every day smoker Past Alcohol Use History: None Reported Additional Past Alcohol Use History / Comment(s): started smoking at age 16 smikes 1 ppd. Past Drug Use History: None Reported - Past Family History Mother History Unknown: Yes Father History Unknown: Yes Medications and Allergies Home Medications Medication Instructions Recorded Confirmed Type Ondansetron HCl [Zofran] 4 mg PO TID PRN 07/04/18 08/27/18 History LORazepam [Ativan] 0.5 mg PO Q8HR PRN #90 tablet 07/25/18 08/27/18 Rx oxyCODONE HCL/ACETAMINOPHEN 1 tab PO Q6HR PRN #60 tab 07/25/18 08/27/18 Rx [Percocet 10-325 mg] Morphine Sulfate [Ms Contin] 30 mg PO Q12HR PRN 08/27/18 08/27/18 History Sennosides-Docusate Sodium 1 tab PO Q48H PRN 08/27/18 08/27/18 History [Senokot-S] Allergies Allergy/AdvReac Type Severity Reaction Status Date / Time No Known Allergies Allergy Verified 08/27/18 17:32 Physical Exam Vitals: Vital Signs Temp Pulse Pulse Resp BP BP Pulse Ox 08/28/18 05:49 98.6 F 96 20 104/64 95 08/27/18 23:00 98.3 F 93 16 97/61 94 L 08/27/18 20:20 98.5 F 08/27/18 19:40 87 22 103/65 98 08/27/18 19:30 86 21 103/81 95 08/27/18 19:00 87 21 104/67 95 08/27/18 18:54 87 18 104/67 95 08/27/18 17:24 98.1 F 98 19 100/68 96 Intake and Output 08/27/18 08/28/18 08/28/18 22:59 06:59 14:59 Intake Total 1449 Balance 1449 Intake: Intake, IV Titration 1449 Amount Sodium Chloride 0.9% 1, 400 000 ml @ 100 mls/hr IV . Q10H [facility] Rx#:[id number] Sodium Chloride 0.9% 1, 999 000 ml @ 999 mls/hr IV . Q1H1M [facility] Rx#:[id number] cefTRIAXone 1,000 mg In 50 Sodium Chloride 0.9% 50 ml @ 100 mls/hr IVPB Q24HR [facility] Rx#:[id number] Other: # Voids 2 Weight 70.307 kg General appearance: The patient is alert, oriented, in no acute distress. Visibly jaundice HET: Head is normocephalic and atraumatic. Pupils are equal and reactive. Sclerae icterus. Oropharynx is clear without lesions. Neck: Supple without lymphadenopathy. Trachea midline. Heart: S1 S2. Regular rate and rhythm. Lungs: No crackles or wheezes are heard. Abdomen: Soft, tenderness to the right upper quadrant, nondistended with bowel sounds. No peritoneal signs. No palpable organomegaly or masses. Extremities: Normal skin color and turgor. No cyanosis, rash, ulceration, clubbing, or edema. Radial and pedal pulses are 2/4 bilaterally. Neurological: No focal deficits. Strength and sensation are grossly intact. Results CBC & Chem 7: 08/27/18 17:57 08/27/18 17:57 Labs: Abnormal Lab Results - Last 24 Hours (Table) 08/27/18 08/27/18 08/27/18 Range/Units 17:57 17:57 17:57 WBC 14.0 H (3.8-10.6) k/uL MCV 100.7 H (80.0-100.0) fL RDW 16.4 H (11.5-15.5) % Neutrophils # 12.3 H (1.3-7.7) k/uL Lymphocytes # 0.5 L (1.0-4.8) k/uL PT (9.0-12.0) sec INR (<1.2) Sodium 132 L (137-145) mmol/L Creatinine 0.37 L (0.52-1.04) mg/dL Glucose 121 H (74-99) mg/dL Total Bilirubin 18.6 H* (0.2-1.3) mg/dL Conjugated Bilirubin 13.4 H (0.0-0.3) mg/dL Unconjugated Bilirubin 1.9 H (0.0-1.1) mg/dL Delta Bilirubin 3.3 H (0.0-0.2) mg/dL AST 145 H (14-36) U/L ALT 54 H (9-52) U/L Alkaline Phosphatase 926 H (38-126) U/L Ammonia 33 H (<30) umol/L Albumin 2.9 L (3.5-5.0) g/dL Amylase <30 L (30-110) U/L Lipase <10 L (23-300) U/L Urine Appearance (Clear) Urine Protein (Negative) Urine Blood (Negative) Urine Nitrite (Negative) Urine Bilirubin (Negative) Urine Bacteria (None) /hpf Urine Mucus (None) /hpf Urine Yeast (Budding) (None) /hpf 08/27/18 08/27/18 08/27/18 Range/Units 17:57 17:57 17:57 WBC (3.8-10.6) k/uL MCV (80.0-100.0) fL RDW (11.5-15.5) % Neutrophils # (1.3-7.7) k/uL Lymphocytes # (1.0-4.8) k/uL PT 13.2 H (9.0-12.0) sec INR 1.4 H (<1.2) Sodium (137-145) mmol/L Creatinine (0.52-1.04) mg/dL Glucose (74-99) mg/dL Total Bilirubin 18.5 H* (0.2-1.3) mg/dL Conjugated Bilirubin (0.0-0.3) mg/dL Unconjugated Bilirubin (0.0-1.1) mg/dL Delta Bilirubin (0.0-0.2) mg/dL AST (14-36) U/L ALT (9-52) U/L Alkaline Phosphatase (38-126) U/L Ammonia (<30) umol/L Albumin (3.5-5.0) g/dL Amylase (30-110) U/L Lipase (23-300) U/L Urine Appearance Cloudy H (Clear) Urine Protein Trace H (Negative) Urine Blood Small H (Negative) Urine Nitrite Positive H (Negative) Urine Bilirubin 4+ H (Negative) Urine Bacteria Moderate H (None) /hpf Urine Mucus Rare H (None) /hpf Urine Yeast (Budding) Rare H (None) /hpf US - abdomen: report reviewed (Dr. Bender) Assessment and Plan (1) Jaundice Narrative/Plan: 53-year-old female with a history of bile duct cancer status post Whipple 2017 with new onset of hepatic mass status post liver biopsy July 2018 metastatic adenocarcinoma presents with worsening jaundice upper abdominal pain. Suspect jaundice is secondary to intrahepatic malignancy extrahepatic biliary obstruction cannot be entirely excluded. Current Visit: Yes Status: Acute Code(s): R17 - UNSPECIFIED JAUNDICE SNOMED Code(s): 83849857 (2) History of bile duct cancer Current Visit: Yes Status: Acute Code(s): Z85.09 - PERSONAL HISTORY OF MALIGNANT NEOPLASM OF DIGESTIVE ORGANS SNOMED Code(s): 910002223 (3) Coagulopathy Current Visit: Yes Status: Acute Code(s): D68.9 - COAGULATION DEFECT, UNSPECIFIED SNOMED Code(s): 77992911 (4) Liver mass Current Visit: Yes Status: Acute Priority: High Code(s): R16.0 - HEPATOMEGALY, NOT ELSEWHERE CLASSIFIED SNOMED Code(s): 597840422 Plan: 1. Oncology consulted; patient was scheduled to start chemotherapy Saturday. 2. Consideration for MRI versus CT imaging to further assess jaundice/biliary tree we'll discuss with oncology team. 3. Daily CBC CMP PT/INR monitoring. Symptomatic supportive measures. Thank you for this kind referral and the opportunity to participate in the care of your patient. This consultation was discussed with Dr. Bender. The impression and plan of care have been directed as dictated.
[2018-08-28] MEDS: MORPHINE SULFATE ER 30 MG TABLET PO PRN (12:19)
--- NOTE | 2018-08-28 14:10 | XR ---
EXAMINATION TYPE: XR chest 2V DATE OF EXAM: 08/28/2018 COMPARISON: None HISTORY: 53-year-old female cough and right ureters TECHNIQUE: Frontal and lateral views FINDINGS: Heart normal size. Aorta within normal limits. Mild diffuse interstitial prominence and peribronchial cuffing. There is some patchy peripheral left basilar opacity. Left anterior chest wall subclavian i njection port with catheter tip at the mid SVC level. No pleural effusion. IMPRESSION: 1. Interstitial changes which may in part be chronic. Correlate for underlying bronchitis, uncontroll ed asthma, or atypical pneumonias. 2. More focal patchy atelectasis or developing infiltrate at the peripheral left base.
[2018-08-28] MEDS ORDERED: KETOROLAC 30 MG/ML 1 ML VIAL IVP PRN (19:27)
--- NOTE | 2018-08-28 22:17 | P.HPIM ---
History of Present Illness H&P Date: 08/28/18 Chief Complaint: Abdominal pain Patient is a 53-year-old female with known history of carcinoma the bile duct diagnosed in 2017 status post Whipple procedure done at [facility], status post adjuvant chemotherapy. CT on 06/25/2018 revealed new right hepatic lobe lesion status post ultrasound-guided biopsy was positive for recurrent carcinoma came to ER with complaints of jaundice and abdominal pain. She felt increasingly weak and tired and increased pain as well. Patient is supposed to begin chemotherapy on Saturday. Patient says that she woke up and found to have a list discoloration of the skin which is spreading. She also states that over the past couple of weeks her urine has been dark in color. She reports nausea and diarrhea today. She denies any increase in pain. She states that she is currently taking Zofran, Ativan, Percocet and morphine. She denies any other medical issues. She denies any fevers or chills, chest pain or shortness of breath, dysuria. Denied any fever or chills. No chest pain or shortness of breath. Abdominal pain is mainly in the right upper quadrant. Ultrasound of the abdomen showed extensive hepatic metastatic disease no ascites. Right kidney showed no hydronephrosis. Chest x-ray interstitial changes may be part of chronic. Correlate for bronchial, atypical pneumonia and asthma. More focal patchy atelectasis. WBC 14.0 Total bilirubin 18.5 INR 1.4 Hepatitis panel negative. Slightly elevated liver enzymes. T-max 100.7 Review of Systems Constitutional: Patient denies any fever or chills . No generalized weakness or weight loss. Abdomen: Patient does have nausea and abdominal pain. No diarrhea. No vomiting.. Cardiovascular: Patient denies any chest pain or short of breath no palpitations. Respiratory: patient denied any cough is from production. No shortness of breath Neurologic: Patient denied any numbness or tingling headache. Musculoskeletal: Patient denies any complaints of joint swelling or deformity. Skin: Yellowish discoloration Psychiatric: Negative Endocrine: No heat or cold intolerance. No recent weight gain. Genitourinary: No dysuria or hematuria. All other 14 point ROS negative except the above Past Medical History Past Medical History: Cancer Additional Past Medical History / Comment(s): Carcinoma of bile duct dx 2017 - whipple procedure done at [facility]. has "spot on liver" was scheduled for bx 07-22-18 History of Any Multi-Drug Resistant Organisms: None Reported Past Surgical History: Tonsillectomy Additional Past Surgical History / Comment(s): Whipple Procedure Past Anesthesia/Blood Transfusion Reactions: No Reported Reaction Past Psychological History: Anxiety Additional Psychological History / Comment(s): lives with a friend. does'nt drive- her insurance pays for rides to [employer]. Smoking Status: Current every day smoker Past Alcohol Use History: None Reported Additional Past Alcohol Use History / Comment(s): started smoking at age 16 smikes 1 ppd. Past Drug Use History: None Reported - Past Family History Mother History Unknown: Yes Father History Unknown: Yes Medications and Allergies Home Medications Medication Instructions Recorded Confirmed Type Ondansetron HCl [Zofran] 4 mg PO TID PRN 07/04/18 08/27/18 History LORazepam [Ativan] 0.5 mg PO Q8HR PRN #90 tablet 07/25/18 08/27/18 Rx oxyCODONE HCL/ACETAMINOPHEN 1 tab PO Q6HR PRN #60 tab 07/25/18 08/27/18 Rx [Percocet 10-325 mg] Morphine Sulfate [Ms Contin] 30 mg PO Q12HR PRN 08/27/18 08/27/18 History Sennosides-Docusate Sodium 1 tab PO Q48H PRN 08/27/18 08/27/18 History [Senokot-S] Allergies Allergy/AdvReac Type Severity Reaction Status Date / Time No Known Allergies Allergy Verified 08/27/18 17:32 Physical Exam Vitals: Vital Signs Temp Pulse Pulse Resp BP BP Pulse Ox 08/28/18 05:49 98.6 F 96 20 104/64 95 08/27/18 23:00 98.3 F 93 16 97/61 94 L 08/27/18 20:20 98.5 F 08/27/18 19:40 87 22 103/65 98 08/27/18 19:30 86 21 103/81 95 08/27/18 19:00 87 21 104/67 95 08/27/18 18:54 87 18 104/67 95 08/27/18 17:24 98.1 F 98 19 100/68 96 Intake and Output 08/27/18 08/28/18 08/28/18 22:59 06:59 14:59 Intake Total 1449 Balance 1449 Intake: Intake, IV Titration 1449 Amount Sodium Chloride 0.9% 1, 400 000 ml @ 100 mls/hr IV . Q10H [facility] Rx#:[id number] Sodium Chloride 0.9% 1, 999 000 ml @ 999 mls/hr IV . Q1H1M [facility] Rx#:[id number] cefTRIAXone 1,000 mg In 50 Sodium Chloride 0.9% 50 ml @ 100 mls/hr IVPB Q24HR [facility] Rx#:[id number] Other: # Voids 2 Weight 70.307 kg PHYSICAL EXAMINATION: Patient is lying in the bed comfortably, no acute distress, awake alert and oriented.. HEENT: Normocephalic. Neck is supple. Pupils reactive. Icterus positive. Nostrils clear. Oral cavity is moist. Ears reveal no drainage. Neck reveals no JVD, carotid bruits, or thyromegaly. CHEST EXAMINATION: Trachea is central. Symmetrical expansion. Bibasilar diminished air entry. Lung m[place] clear to auscultation and percussion. CARDIAC: Normal S1, S2 with no gallops. No murmurs ABDOMEN: Soft. Right upper quadrant tenderness. Bowel sounds normal. No organomegaly. No abdominal bruits. Extremities: reveal no edema. No clubbing or cyanosis Neurologically awake, alert, oriented x3 with well-coordinated movements. No focal deficits noted Skin: No rash or skin lesions. Patient does have a list discoloration of the skin. Psychiatric: Coperative. Nonsuicidal Musculoskeletal: No joint swelling or deformity. Normal range of motion. Results CBC & Chem 7: 08/27/18 17:57 08/27/18 17:57 Labs: Abnormal Lab Results - Last 24 Hours (Table) 08/27/18 08/27/18 08/27/18 Range/Units 17:57 17:57 17:57 WBC 14.0 H (3.8-10.6) k/uL MCV 100.7 H (80.0-100.0) fL RDW 16.4 H (11.5-15.5) % Neutrophils # 12.3 H (1.3-7.7) k/uL Lymphocytes # 0.5 L (1.0-4.8) k/uL PT (9.0-12.0) sec INR (<1.2) Sodium 132 L (137-145) mmol/L Creatinine 0.37 L (0.52-1.04) mg/dL Glucose 121 H (74-99) mg/dL Total Bilirubin 18.6 H* (0.2-1.3) mg/dL Conjugated Bilirubin 13.4 H (0.0-0.3) mg/dL Unconjugated Bilirubin 1.9 H (0.0-1.1) mg/dL Delta Bilirubin 3.3 H (0.0-0.2) mg/dL AST 145 H (14-36) U/L ALT 54 H (9-52) U/L Alkaline Phosphatase 926 H (38-126) U/L Ammonia 33 H (<30) umol/L Albumin 2.9 L (3.5-5.0) g/dL Amylase <30 L (30-110) U/L Lipase <10 L (23-300) U/L Urine Appearance (Clear) Urine Protein (Negative) Urine Blood (Negative) Urine Nitrite (Negative) Urine Bilirubin (Negative) Urine Bacteria (None) /hpf Urine Mucus (None) /hpf Urine Yeast (Budding) (None) /hpf 08/27/18 08/27/18 08/27/18 Range/Units 17:57 17:57 17:57 WBC (3.8-10.6) k/uL MCV (80.0-100.0) fL RDW (11.5-15.5) % Neutrophils # (1.3-7.7) k/uL Lymphocytes # (1.0-4.8) k/uL PT 13.2 H (9.0-12.0) sec INR 1.4 H (<1.2) Sodium (137-145) mmol/L Creatinine (0.52-1.04) mg/dL Glucose (74-99) mg/dL Total Bilirubin 18.5 H* (0.2-1.3) mg/dL Conjugated Bilirubin (0.0-0.3) mg/dL Unconjugated Bilirubin (0.0-1.1) mg/dL Delta Bilirubin (0.0-0.2) mg/dL AST (14-36) U/L ALT (9-52) U/L Alkaline Phosphatase (38-126) U/L Ammonia (<30) umol/L Albumin (3.5-5.0) g/dL Amylase (30-110) U/L Lipase (23-300) U/L Urine Appearance Cloudy H (Clear) Urine Protein Trace H (Negative) Urine Blood Small H (Negative) Urine Nitrite Positive H (Negative) Urine Bilirubin 4+ H (Negative) Urine Bacteria Moderate H (None) /hpf Urine Mucus Rare H (None) /hpf Urine Yeast (Budding) Rare H (None) /hpf Thrombosis Risk Factor Assmnt - DVT/VTE Prophylaxis DVT/VTE Prophylaxis: Mechanical Prophylaxis ordered - Choose All That Apply Any of the Below Risk Factors Present?: Yes Each Factor Represents 1 point: Age 41-60 years, Obesity (BMI >25) Other congenital or acquired thrombophilia - If yes, enter type in comment: No Thrombosis Risk Factor Assessment Total Risk Factor Score: 2 Thrombosis Risk Factor Assessment Level: Low Risk Assessment and Plan Assessment: Obstructive jaundice/hyperbilirubinemia likely intrahepatic with metastatic adenocarcinoma the bile ducts. Possible acute cholangitis Primary bile duct internal carcinoma diagnosed in 2017. Status post Whipple's procedure and adjuvant chemotherapy Chronic pain due to underlying cancer Coagulopathy with INR 1.4 Elevated liver enzymes due to metastatic lesions Currently in the day smoker Anxiety DVT prophylaxis. Patient is already auto anticoagulated Plan: Patient be continued on pain management, IV fluids and antibiotics in the form of ceftriaxone and Flagyl. GI and oncology has seen the patient. workup including liver-MRI/CT was ordered. Further recommendations based on the clinical course. Prognosis is poor. Time with Patient: Greater than 30
[2018-08-29] MEDS: metroNIDAZOLE-NS PMX 500 MG in SALINE 1 100ML.BAG IVPB SCH ×4 (00:11→23:25)
[2018-08-29] MEDS: MORPHINE SULFATE ER 30 MG TABLET PO PRN ×2 (00:11→12:21)
[2018-08-29] MEDS: ONDANSETRON 4 MG/2 ML VIAL IVP PRN ×3 (01:31→19:20)
[2018-08-29] MEDS: HYDROmorphone 1 MG/ML 1 ML SYRINGE IVP PRN ×6 (01:31→22:14)
[2018-08-29] MEDS: SODIUM CHLORIDE 0.9% 1,000 ML IV SCH ×3 (01:38→22:16)
[2018-08-30] MEDS: MORPHINE SULFATE ER 30 MG TABLET PO PRN ×2 (00:35→14:00)
[2018-08-30] MEDS: HYDROmorphone 1 MG/ML 1 ML SYRINGE IVP PRN ×7 (03:22→22:21)
[2018-08-30] MEDS: metroNIDAZOLE-NS PMX 500 MG in SALINE 1 100ML.BAG IVPB SCH ×3 (08:18→23:04)
[2018-08-30] MEDS: SODIUM CHLORIDE 0.9% 1,000 ML IV SCH ×2 (08:19→18:25)
[2018-08-30] MEDS: ONDANSETRON 4 MG/2 ML VIAL IVP PRN (09:25)
--- NOTE | 2018-08-30 11:03 | MR ---
EXAMINATION TYPE: MR abdomen wo/w con DATE OF EXAM: 08/30/2018 COMPARISON: CT scan of the chest, abdomen and pelvis dated 06/25/2018. HISTORY: metastatic disease CONTRAST: Standard multiplanar, multisequence MRI departmental protocol utilizing 7 mL intravenous Gadavist adriana olinium contrast. FINDINGS: The liver is grossly enlarged measuring 25 cm. There is complete replacement of the liver w ith nodules. The largest is in the anterior segment of the right lobe of the liver measures 7.6 cm. T hese nodules enhance irregularly with gadolinium. The gallbladder is not identified. The spleen is unremarkable. Both adrenal glands are normal. Both kidneys demonstrate function and appear morphologically normal. Limited views of the pancreas are unremarkable. There are a few enhancing foci within the lumbar vertebrae suggestive of metastatic disease to the phillip jean claude. IMPRESSION: 1. NEAR COMPLETE REPLACEMENT OF THE LIVER WITH METASTATIC DISEASE. 2. I AM SUSPICIOUS THAT THERE ARE ALSO METASTATIC LESIONS WITHIN THE SPINE.
--- NOTE | 2018-08-30 11:09 | P.PN ---
Subjective Progress Note Date: 08/29/18 Principal diagnosis: Anjelica Bile duct cancer 53-year-old female diagnosed with bile duct cancer 2017 status post Whipple chemoradiation. Admitted with new onset of jaundice abdominal pain. She noticed jaundice a few days ago with dark colored urine. CT imaging June reported hepatic mass she underwent core liver biopsy 07/23/2018 with findings of metastatic adenocarcinoma consistent with primary upper GI versus pancreatobiliary tract origin. Total bilirubin around the time of biopsy was 1.0. AST 51. ALT 31. AP 264. She was seen by oncology and scheduled for chemotherapy this upcoming Saturday. On admission total bilirubin increased 18.5. Conjugated 13.4. AST 145. ALT 54. AP 926. INR 1.4. White count 14. Hemoglobin 12.8. Platelet 261. 08/29/2018 Patient is seen and evaluated in room at bedside; patient relates that pain is controlled with pain medication; feeling somewhat depressed and not sure what course of action is in regards to her treatment; patient relates she's been told by GI for possible MRI and further recommendations after MRI is completed Objective - Vital Signs Vital signs: Vital Signs Temp 97.7 F 08/29/18 06:35 Pulse 86 08/29/18 06:35 Resp 16 08/29/18 06:35 BP 92/50 08/29/18 06:35 Pulse Ox 95 08/29/18 06:35 Intake & Output 08/28/18 08/29/18 08/29/18 18:59 06:59 18:59 Intake Total 850 Balance 850 Weight 70.307 kg Intake: IV 800 Sodium Chloride 0.9% 1, 800 000 ml @ 100 mls/hr IV . Q10H [facility] Rx#:[id number] Intake, IV Titration 50 Amount cefTRIAXone 1,000 mg In 50 Sodium Chloride 0.9% 50 ml @ 100 mls/hr IVPB Q24HR [facility] Rx#:[id number] Other: # Voids 1 - Exam Patient is lying in the bed comfortably, no acute distress, awake alert and oriented.. HEENT: Normocephalic. Neck is supple. Pupils reactive. Icterus positive. Nostrils clear. Oral cavity is moist. Ears reveal no drainage. Neck reveals no JVD, carotid bruits, or thyromegaly. CHEST EXAMINATION: Trachea is central. Symmetrical expansion. Bibasilar diminished air entry. Lung m[place] clear to auscultation and percussion. CARDIAC: Normal S1, S2 with no gallops. No murmurs ABDOMEN: Soft. Right upper quadrant tenderness. Bowel sounds normal. No organomegaly. No abdominal bruits. Extremities: reveal no edema. No clubbing or cyanosis Neurologically awake, alert, oriented x3 with well-coordinated movements. No focal deficits noted Skin: No rash or skin lesions. Patient does have a list discoloration of the skin. Psychiatric: Coperative. Nonsuicidal Musculoskeletal: No joint swelling or deformity. Normal range of motion. - Labs CBC & Chem 7: 08/27/18 17:57 08/27/18 17:57 Labs: Microbiology - Last 24 Hours (Table) 08/27/18 17:57 Blood Culture - Preliminary Blood No Growth after 24 hours Assessment and Plan Assessment: 1. Obstructive jaundice/hyperbilirubinemia likely intrahepatic with metastatic adenocarcinoma the bile ducts. - Oncology and GI service on board; oncology recommending possible MRI evaluation by GI service for further recommendations 2. Possible acute cholangitis - Patient remains on IV ceftriaxone and Flagyl - GI is following and further recommendations elevated after MRI is completed 3. Primary bile duct internal carcinoma diagnosed in 2017. - Status post Whipple's procedure and adjuvant chemotherapy 4. Chronic pain due to underlying cancer - Patient remains on IV Dilaudid 1 mg every 3 hours when necessary along with Toradol 15 mg IV every 6 hours - We will continue home dose of morphine sulfate 30 mg every 12 hours 5. Coagulopathy with INR 1.4; secondary to underlying disease; we will continue to monitor PT/INR 6. Elevated liver enzymes due to metastatic lesions 7. Chronic tobacco use; counseling done for cessation of smoking 8. DVT prophylaxis. Patient is already auto anticoagulated Plan: Patient be continued on pain management, IV fluids and antibiotics in the form of ceftriaxone and Flagyl. GI and oncology has seen the patient. workup including liver-MRI/CT was ordered. Further recommendations based on the clinical course. Prognosis is poor. Time with Patient: Greater than 30
[2018-08-30 12:33] LABS: Anisocytosis Slight; Basophils # (A) 0.1 k/uL (0-0.2); Basophils % (A) 1 %; Eosinophils # (A) 0.3 k/uL (0-0.7); Eosinophils % (A) 2 %; HCT 36.6 % (34.0-46.0); HGB 11.8 gm/dL (11.4-16.0); Hypochromasia Slight; Lymphocytes # (A) 0.4 k/uL (1.0-4.8); Lymphocytes % (A) 3 %; MCH 32.6 pg (25.0-35.0); MCHC 32.3 g/dL (31.0-37.0); MCV 100.7 fL (80.0-100.0); Macrocytosis Slight; Mean Platelet Volume 7.6; Monocytes # (A) 0.7 k/uL (0-1.0); Monocytes % (A) 5 %; Neutrophils # (A) 12.5 k/uL (1.3-7.7); Neutrophils % (A) 89 %; Platelet Count 212 k/uL (150-450); RBC 3.64 m/uL (3.80-5.40); RDW 16.4 % (11.5-15.5); WBC 14.1 k/uL (3.8-10.6)
[2018-08-30 12:53] LABS: ALT 54 U/L (9-52); AST 135 U/L (14-36); Albumin 2.5 g/dL (3.5-5.0); Alkaline Phosphatase 658 U/L (38-126); Anion Gap 10 mmol/L; Blood Urea Nitrogen 4 mg/dL (7-17); Calcium 8.7 mg/dL (8.4-10.2); Carbon Dioxide 22 mmol/L (22-30); Chloride 103 mmol/L (98-107); Glucose 131 mg/dL (74-99); Potassium 3.5 mmol/L (3.5-5.1); Sodium 135 mmol/L (137-145); Total Protein 5.8 g/dL (6.3-8.2)
[2018-08-30 13:29] LABS: Total Bilirubin 20.7 mg/dL (0.2-1.3)
[2018-08-30] MEDS: METOCLOPRAMIDE 5 MG/ML 2 ML VIAL IVP SCH ×2 (13:59→21:24)
--- NOTE | 2018-08-30 18:14 | P.PN ---
Subjective Progress Note Date: 08/30/18 Principal diagnosis: Obstructive jaundice Cholangiocarcinoma Patient had MRI abdomen done which showed complete replacement of her liver tissue with malignancy, and possible spinal met's. Bilirubin continues to increase, at 20. She is very tearful about the MRI results. Objective - Vital Signs Vital signs: Vital Signs Temp 97.6 F 08/30/18 07:15 Pulse 81 08/30/18 07:15 Resp 16 08/30/18 07:15 BP 88/55 08/30/18 07:15 Pulse Ox 94 L 08/30/18 07:15 Intake & Output 08/29/18 08/30/18 08/30/18 18:59 06:59 18:59 Intake Total 600 Balance 600 Intake: Oral 600 Other: # Voids 4 1 3 - Exam General: In no acute distress. HEENT: Scleral icterus. Mucosa moist. Neck: Neck supple. Lungs: CTA-B. Heart: RRR. No LE edema. Abdomen: Soft. Significant hepatomegaly. MSK: 4/4 strength in all 4 extremities. Neuro: Alert and oriented 3. No obvious gross neurologic deficits. Skin: Jaundice. Psych: Appropriate affect. - Labs CBC & Chem 7: 08/30/18 12:17 08/30/18 00:57 Labs: Abnormal Lab Results - Last 24 Hours (Table) 08/30/18 08/30/18 Range/Units 00:57 12:17 WBC 14.1 H (3.8-10.6) k/uL RBC 3.64 L (3.80-5.40) m/uL MCV 100.7 H (80.0-100.0) fL RDW 16.4 H (11.5-15.5) % Neutrophils # 12.5 H (1.3-7.7) k/uL Lymphocytes # 0.4 L (1.0-4.8) k/uL Sodium 135 L (137-145) mmol/L BUN 4 L (7-17) mg/dL Creatinine 0.37 L (0.52-1.04) mg/dL Glucose 131 H (74-99) mg/dL Total Bilirubin 20.7 H* (0.2-1.3) mg/dL AST 135 H (14-36) U/L ALT 54 H (9-52) U/L Alkaline Phosphatase 658 H (38-126) U/L Total Protein 5.8 L (6.3-8.2) g/dL Albumin 2.5 L (3.5-5.0) g/dL Microbiology - Last 24 Hours (Table) 08/27/18 17:57 Blood Culture - Preliminary Blood No Growth after 48 hours Assessment and Plan Assessment: 1. Metastatic cholangiocarcinoma 2. Hyperbilirubinemia and transaminitis likely due to metastatic cholangiocarcinoma Plan: Ms. Adame is a very pleasant 53 yo female with history of cholangiocarcinoma diagnosed initially in 2016, status post Whipple followed by adjuvant chemotherapy with cisplatin and Xeloda, last dose on November 2017, now with recent recurrence of her cholangiocarcinoma. She was found to have disease recurrence recently and chemotherapy with FOLFOX was planned for 09/01/18 however she ended up in the hospital with acute onset jaundice, found to have a bilirubin of 18, increase to 20 this morning. GI on board and MRI of the abdomen was obtained which shows almost complete replacement of liver tissue by tumor and concerns of spine metastases. I did discuss her case with GI and with the patient and her sister at bedside. She has been having slowly progressive abdominal pain as well as increasing fatigue recently. She is very tearful about the findings of the MRI which I explained to her. She is very motivated to proceed with further treatment. Due to her hyperbilirubinemia she would not be a candidate for 5-FU therapy. We could consider treating her with Xeloda instead plus or minus oxaliplatin. She will think about things and we can consider ordering Solodyn with oxaliplatin to start as soon as possible as an outpatient. I did discuss the limited role of treating this cancer as it does seem to be very aggressive and comfort care would be very reasonable. Treatment would be more palliative and may not truly work. She is very motivated however to proceed with therapy if she is able to. Discussed this in detail with the patient and her sister at bedside. We will see her on Saturday and finalize her plan. Patient and her sister are agreeable to the plan and all their questions were answered.
[2018-08-31] MEDS: HYDROmorphone 1 MG/ML 1 ML SYRINGE IVP PRN ×7 (01:53→22:10)
[2018-08-31] MEDS: MORPHINE SULFATE ER 30 MG TABLET PO PRN ×2 (02:55→16:07)
[2018-08-31] MEDS: SODIUM CHLORIDE 0.9% 1,000 ML IV SCH ×3 (05:58→23:51)
[2018-08-31] MEDS: metroNIDAZOLE-NS PMX 500 MG in SALINE 1 100ML.BAG IVPB SCH ×3 (08:38→23:53)
[2018-08-31] MEDS: METOCLOPRAMIDE 5 MG/ML 2 ML VIAL IVP SCH ×2 (08:38→21:45)
[2018-08-31 12:00] LABS: Anisocytosis Slight; Basophils # (A) 0.1 k/uL (0-0.2); Basophils % (A) 1 %; Eosinophils # (A) 0.3 k/uL (0-0.7); Eosinophils % (A) 2 %; HCT 35.2 % (34.0-46.0); HGB 11.3 gm/dL (11.4-16.0); Hypochromasia Slight; Lymphocytes # (A) 0.5 k/uL (1.0-4.8); Lymphocytes % (A) 4 %; MCH 32.9 pg (25.0-35.0); MCV 102.6 fL (80.0-100.0); Macrocytosis Moderate; Mean Platelet Volume 7.4; Monocytes # (A) 0.9 k/uL (0-1.0); Monocytes % (A) 7 %; Neutrophils # (A) 10.9 k/uL (1.3-7.7); Neutrophils % (A) 85 %; Platelet Count 207 k/uL (150-450); RBC 3.43 m/uL (3.80-5.40); RDW 16.7 % (11.5-15.5); WBC 12.9 k/uL (3.8-10.6)
[2018-08-31 12:01] LABS: ALT 55 U/L (9-52); AST 145 U/L (14-36); Albumin 2.4 g/dL (3.5-5.0); Alkaline Phosphatase 656 U/L (38-126); Anion Gap 6 mmol/L; Bilirubin, Conjugated 15.1 mg/dL (0.0-0.3); Bilirubin,Unconjugated 1.7 mg/dL (0.0-1.1); Blood Urea Nitrogen 3 mg/dL (7-17); Calcium 8.6 mg/dL (8.4-10.2); Carbon Dioxide 24 mmol/L (22-30); Chloride 102 mmol/L (98-107); Glucose 87 mg/dL (74-99); Potassium 3.7 mmol/L (3.5-5.1); Sodium 132 mmol/L (137-145); Total Protein 5.5 g/dL (6.3-8.2)
[2018-08-31 12:10] LABS: Total Bilirubin 20.8 mg/dL (0.2-1.3)
--- NOTE | 2018-08-31 15:43 | P.PN ---
Subjective Progress Note Date: 08/31/18 Principal diagnosis: Anjelica Bile duct cancer 53-year-old female diagnosed with bile duct cancer 2017 status post Whipple chemoradiation. Admitted with new onset of jaundice abdominal pain. She noticed jaundice a few days ago with dark colored urine. CT imaging June reported hepatic mass she underwent core liver biopsy 07/23/2018 with findings of metastatic adenocarcinoma consistent with primary upper GI versus pancreatobiliary tract origin. Total bilirubin around the time of biopsy was 1.0. AST 51. ALT 31. AP 264. She was seen by oncology and scheduled for chemotherapy this upcoming Saturday. On admission total bilirubin increased 18.5. Conjugated 13.4. AST 145. ALT 54. AP 926. INR 1.4. White count 14. Hemoglobin 12.8. Platelet 261. 08/29/2018 Patient is seen and evaluated in room at bedside; patient relates that pain is controlled with pain medication; feeling somewhat depressed and not sure what course of action is in regards to her treatment; patient relates she's been told by GI for possible MRI and further recommendations after MRI is completed 08/30/2018; MRI results of abdomen showing complete replacement of her liver tissue with malignancy was discussed with patient in great detail; she was very depressed BP with the news; patient was started on Ativan when necessary for anxiety and pain medication regimen was escalated; total bilirubin is continuously trending up; oncology has seen the patient and have recommended possible palliative care ; shouldn't has decided for treatment even though any chemotherapeutic treatment would be palliative; oncology to set out of plan of care and treatment schedule with patient tomorrow Objective - Vital Signs Vital signs: Vital Signs Temp 96.8 F L 08/31/18 06:20 Pulse 86 08/31/18 06:20 Resp 20 08/31/18 06:20 BP 91/52 08/31/18 06:20 Pulse Ox 95 08/31/18 06:20 Intake & Output 08/30/18 08/31/18 08/31/18 18:59 06:59 18:59 Intake Total 100 Balance 100 Intake: Oral 100 Other: Voiding Method Toilet Toilet # Voids 3 1 - Exam Patient is lying in the bed comfortably, no acute distress, awake alert and oriented.. HEENT: Normocephalic. Neck is supple. Pupils reactive. Icterus positive. Nostrils clear. Oral cavity is moist. Ears reveal no drainage. Neck reveals no JVD, carotid bruits, or thyromegaly. CHEST EXAMINATION: Trachea is central. Symmetrical expansion. Bibasilar diminished air entry. Lung middleton clear to auscultation and percussion. CARDIAC: Normal S1, S2 with no gallops. No murmurs ABDOMEN: Soft. Right upper quadrant tenderness. Bowel sounds normal. No organomegaly. No abdominal bruits. Extremities: reveal no edema. No clubbing or cyanosis Neurologically awake, alert, oriented x3 with well-coordinated movements. No focal deficits noted Skin: No rash or skin lesions. Patient does have a list discoloration of the skin. Psychiatric: Coperative. Nonsuicidal Musculoskeletal: No joint swelling or deformity. Normal range of motion. - Labs CBC & Chem 7: 08/31/18 10:53 08/31/18 10:53 Labs: Abnormal Lab Results - Last 24 Hours (Table) 08/30/18 08/30/18 08/31/18 Range/Units 00:57 12:17 10:53 WBC 14.1 H 12.9 H (3.8-10.6) k/uL RBC 3.64 L 3.43 L (3.80-5.40) m/uL Hgb 11.3 L (11.4-16.0) gm/dL MCV 100.7 H 102.6 H (80.0-100.0) fL RDW 16.4 H 16.7 H (11.5-15.5) % Neutrophils # 12.5 H 10.9 H (1.3-7.7) k/uL Lymphocytes # 0.4 L 0.5 L (1.0-4.8) k/uL Sodium 135 L (137-145) mmol/L BUN 4 L (7-17) mg/dL Creatinine 0.37 L (0.52-1.04) mg/dL Glucose 131 H (74-99) mg/dL Total Bilirubin 20.7 H* (0.2-1.3) mg/dL Conjugated Bilirubin (0.0-0.3) mg/dL Unconjugated Bilirubin (0.0-1.1) mg/dL Delta Bilirubin (0.0-0.2) mg/dL AST 135 H (14-36) U/L ALT 54 H (9-52) U/L Alkaline Phosphatase 658 H (38-126) U/L Total Protein 5.8 L (6.3-8.2) g/dL Albumin 2.5 L (3.5-5.0) g/dL 08/31/18 Range/Units 10:53 WBC (3.8-10.6) k/uL RBC (3.80-5.40) m/uL Hgb (11.4-16.0) gm/dL MCV (80.0-100.0) fL RDW (11.5-15.5) % Neutrophils # (1.3-7.7) k/uL Lymphocytes # (1.0-4.8) k/uL Sodium 132 L (137-145) mmol/L BUN 3 L (7-17) mg/dL Creatinine 0.33 L (0.52-1.04) mg/dL Glucose (74-99) mg/dL Total Bilirubin 20.8 H* (0.2-1.3) mg/dL Conjugated Bilirubin 15.1 H (0.0-0.3) mg/dL Unconjugated Bilirubin 1.7 H (0.0-1.1) mg/dL Delta Bilirubin 4.0 H (0.0-0.2) mg/dL AST 145 H (14-36) U/L ALT 55 H (9-52) U/L Alkaline Phosphatase 656 H (38-126) U/L Total Protein 5.5 L (6.3-8.2) g/dL Albumin 2.4 L (3.5-5.0) g/dL Microbiology - Last 24 Hours (Table) 08/27/18 17:57 Blood Culture - Preliminary Blood No Growth after 72 hours Assessment and Plan Assessment: 1. Obstructive jaundice/hyperbilirubinemia likely intrahepatic with metastatic metastatic cholangiocarcinoma. - Oncology and GI service on board; oncology recommending possible MRI evaluation by GI service for further recommendations 2. Possible acute cholangitis - Patient remains on IV ceftriaxone and Flagyl - GI is following and further recommendations elevated after MRI is completed 3. Primary bile duct internal carcinoma diagnosed in 2017. - Status post Whipple's procedure and adjuvant chemotherapy 4. Chronic pain due to underlying cancer - Patient remains on IV Dilaudid 1 mg every 3 hours when necessary along with Toradol 15 mg IV every 6 hours - We will continue home dose of morphine sulfate 30 mg every 12 hours 5. Coagulopathy with INR 1.4; secondary to underlying disease; we will continue to monitor PT/INR 6. Elevated liver enzymes due to metastatic lesions 7. Chronic tobacco use; counseling done for cessation of smoking 8. DVT prophylaxis. Patient is already auto anticoagulated Plan: Patient be continued on pain management, IV fluids and antibiotics in the form of ceftriaxone and Flagyl. GI and oncology has seen the patient. workup including liver-MRI/CT was ordered. Further recommendations based on the clinical course. Prognosis is poor. Time with Patient: Greater than 30
[2018-08-31] MEDS: ONDANSETRON 4 MG/2 ML VIAL IVP PRN (19:05)
[2018-09-01] MEDS ORDERED: METOCLOPRAMIDE 5 MG/ML 2 ML VIAL IVP STA (01:26)
[2018-09-01] MEDS: HYDROmorphone 1 MG/ML 1 ML SYRINGE IVP PRN ×8 (01:26→23:53)
--- NOTE | 2018-09-01 02:51 | P.PN ---
Subjective Progress Note Date: 08/30/18 Principal diagnosis: Jaundice, metastatic cholangiocarcinoma Patient continues to be jaundiced, with poor appetite and overall weakness. She is upset about her overall prognosis. Objective - Vital Signs Vital signs: Vital Signs Temp 98.0 F 08/30/18 14:45 Pulse 88 08/30/18 14:45 Resp 16 08/30/18 14:45 BP 106/58 08/30/18 14:45 Pulse Ox 95 08/30/18 14:45 Intake & Output 08/30/18 08/30/18 08/31/18 06:59 18:59 06:59 Intake Total 600 Balance 600 Intake: Oral 600 Other: # Voids 1 3 2 - Exam Constitutional: Lying in bed in no apparent distress Head: normocephalic/atraumatic Eyes: Icterus, no injection Mouth: Moist mucous membranes Nose: No discharge noted Neck: Trachea midline Lungs: Normal air entry in all lung middleton, no wheezing appreciated Abdomen: Soft, nontender, nondistended, normal bowel sounds. No guarding or rigidity Skin: No rashes, jaundice Neuro: Awake alert and oriented 3, no focal deficits - Labs CBC & Chem 7: 08/31/18 10:53 08/31/18 10:53 Labs: Abnormal Lab Results - Last 24 Hours (Table) 08/30/18 08/30/18 Range/Units 00:57 12:17 WBC 14.1 H (3.8-10.6) k/uL RBC 3.64 L (3.80-5.40) m/uL MCV 100.7 H (80.0-100.0) fL RDW 16.4 H (11.5-15.5) % Neutrophils # 12.5 H (1.3-7.7) k/uL Lymphocytes # 0.4 L (1.0-4.8) k/uL Sodium 135 L (137-145) mmol/L BUN 4 L (7-17) mg/dL Creatinine 0.37 L (0.52-1.04) mg/dL Glucose 131 H (74-99) mg/dL Total Bilirubin 20.7 H* (0.2-1.3) mg/dL AST 135 H (14-36) U/L ALT 54 H (9-52) U/L Alkaline Phosphatase 658 H (38-126) U/L Total Protein 5.8 L (6.3-8.2) g/dL Albumin 2.5 L (3.5-5.0) g/dL Microbiology - Last 24 Hours (Table) 08/27/18 17:57 Blood Culture - Preliminary Blood No Growth after 72 hours - Imaging and Cardiology MRI - abdomen: image reviewed (MRI abdomen with both image and report reviewed, appears that there is diffuse metastatic disease within the liver with no focal area of bile duct obstruction, there is also suspicion for possible metastases to the patient's Spine) Assessment and Plan (1) Hyperbilirubinemia Narrative/Plan: Patient with prior history of primary cholangio-carcinoma for which she previously underwent surgery and chemotherapy treatment. She presents back with jaundice and is noted to have diffuse metastatic disease within her liver. MRI of the abdomen was performed and there is no evidence of bile duct obstruction with the patient's bilirubin elevation and jaundice likely secondary to diffuse intrahepatic metastases. Current Visit: Yes Status: Acute Code(s): E80.6 - OTHER DISORDERS OF BILIRUBIN METABOLISM SNOMED Code(s): 05382537 (2) History of bile duct cancer Narrative/Plan: History of cholangiocarcinoma treated with surgery and chemotherapy in 2017 which has recurred in the form of diffuse intrahepatic metastases. Current Visit: Yes Status: Acute Code(s): Z85.09 - PERSONAL HISTORY OF MALIGNANT NEOPLASM OF DIGESTIVE ORGANS SNOMED Code(s): 962581948 (3) Jaundice Narrative/Plan: As above. Current Visit: Yes Status: Acute Priority: High Code(s): R17 - UNSPECIFIED JAUNDICE SNOMED Code(s): 99857427 Plan: Supportive care Okay for diet MRI of the abdomen reviewed, as stated above there does not appear to be a focal obstruction of the biliary system and the patient's jaundice and hyperbilirubinemia appears to be secondary to diffuse intrahepatic disease Further therapy per the oncology team Thank you for allowing us to participate in the care of this patient, we will standby, please call with any questions or concerns
[2018-09-01] MEDS: MORPHINE SULFATE ER 30 MG TABLET PO PRN ×2 (05:41→18:48)
[2018-09-01] MEDS: METOCLOPRAMIDE 5 MG/ML 2 ML VIAL IVP SCH ×2 (08:27→20:03)
[2018-09-01] MEDS: metroNIDAZOLE-NS PMX 500 MG in SALINE 1 100ML.BAG IVPB SCH ×3 (08:27→23:17)
[2018-09-01 09:46] LABS: Anisocytosis Slight; Basophils # (A) 0.1 k/uL (0-0.2); Basophils % (A) 1 %; Eosinophils # (A) 0.3 k/uL (0-0.7); Eosinophils % (A) 2 %; HCT 34.3 % (34.0-46.0); HGB 11.2 gm/dL (11.4-16.0); Lymphocytes # (A) 0.6 k/uL (1.0-4.8); Lymphocytes % (A) 4 %; MCH 32.6 pg (25.0-35.0); MCHC 32.7 g/dL (31.0-37.0); MCV 99.8 fL (80.0-100.0); Macrocytosis Slight; Mean Platelet Volume 8.2; Monocytes # (A) 1.3 k/uL (0-1.0); Monocytes % (A) 9 %; Neutrophils # (A) 12.5 k/uL (1.3-7.7); Neutrophils % (A) 84 %; Platelet Count 225 k/uL (150-450); RBC 3.44 m/uL (3.80-5.40); RDW 16.7 % (11.5-15.5); WBC 14.9 k/uL (3.8-10.6)
[2018-09-01] MEDS: SODIUM CHLORIDE 0.9% 1,000 ML IV SCH ×2 (09:57→20:04)
[2018-09-01 10:14] LABS: ALT 57 U/L (9-52); AST 184 U/L (14-36); Albumin 2.5 g/dL (3.5-5.0); Alkaline Phosphatase 723 U/L (38-126); Anion Gap 9 mmol/L; Bilirubin, Conjugated 16.1 mg/dL (0.0-0.3); Bilirubin,Unconjugated 1.9 mg/dL (0.0-1.1); Blood Urea Nitrogen 3 mg/dL (7-17); Calcium 8.7 mg/dL (8.4-10.2); Carbon Dioxide 25 mmol/L (22-30); Chloride 101 mmol/L (98-107); Glucose 79 mg/dL (74-99); Potassium 3.5 mmol/L (3.5-5.1); Sodium 135 mmol/L (137-145); Total Protein 5.8 g/dL (6.3-8.2)
[2018-09-01 10:18] LABS: Bilirubin, Delta 4.4 mg/dL (0.0-0.2)
[2018-09-01 10:33] LABS: Total Bilirubin 22.4 mg/dL (0.2-1.3)
[2018-09-01] MEDS: ONDANSETRON 4 MG/2 ML VIAL IVP PRN (11:30)
--- NOTE | 2018-09-01 12:05 | P.PN ---
Subjective Progress Note Date: 09/01/18 Principal diagnosis: Cholangiocarcinoma - Recurrent and Progressive Sharmin is tearful today in follow-up regarding the rapid recurrence and spread of her disease. She does not want to go home with hospice or palliative or comfort care. She is adament about treatment options, given the fact that treatment may not be beneficial at this time, she is still willing and wanting to pursue with therapy options. Objective - Vital Signs Vital signs: Vital Signs Temp 97.1 F L 09/01/18 05:55 Pulse 95 09/01/18 05:55 Resp 18 09/01/18 05:55 BP 104/61 09/01/18 05:55 Pulse Ox 95 09/01/18 05:55 Intake & Output 08/31/18 09/01/18 09/01/18 18:59 06:59 18:59 Weight 70.307 kg Other: Voiding Method Toilet Toilet # Voids 3 2 # Bowel Movements 2 - Exam Exam General: In no acute distress. HEENT: Scleral icterus. Mucosa moist. Neck: Neck supple. Lungs: CTA-B. Heart: RRR. No LE edema. Abdomen: Soft. Significant hepatomegaly. MSK: 4/4 strength in all 4 extremities. Neuro: Alert and oriented 3. No obvious gross neurologic deficits. Skin: Jaundice. Psych: Appropriate affect. - Labs CBC & Chem 7: 09/01/18 07:53 09/01/18 07:53 Labs: Abnormal Lab Results - Last 24 Hours (Table) 08/31/18 08/31/18 09/01/18 Range/Units 10:53 10:53 07:53 WBC 12.9 H 14.9 H (3.8-10.6) k/uL RBC 3.43 L 3.44 L (3.80-5.40) m/uL Hgb 11.3 L 11.2 L (11.4-16.0) gm/dL MCV 102.6 H (80.0-100.0) fL RDW 16.7 H 16.7 H (11.5-15.5) % Neutrophils # 10.9 H 12.5 H (1.3-7.7) k/uL Lymphocytes # 0.5 L 0.6 L (1.0-4.8) k/uL Monocytes # 1.3 H (0-1.0) k/uL Sodium 132 L (137-145) mmol/L BUN 3 L (7-17) mg/dL Creatinine 0.33 L (0.52-1.04) mg/dL Total Bilirubin 20.8 H* (0.2-1.3) mg/dL Conjugated Bilirubin 15.1 H (0.0-0.3) mg/dL Unconjugated Bilirubin 1.7 H (0.0-1.1) mg/dL Delta Bilirubin 4.0 H (0.0-0.2) mg/dL AST 145 H (14-36) U/L ALT 55 H (9-52) U/L Alkaline Phosphatase 656 H (38-126) U/L Total Protein 5.5 L (6.3-8.2) g/dL Albumin 2.4 L (3.5-5.0) g/dL 09/01/18 Range/Units 07:53 WBC (3.8-10.6) k/uL RBC (3.80-5.40) m/uL Hgb (11.4-16.0) gm/dL MCV (80.0-100.0) fL RDW (11.5-15.5) % Neutrophils # (1.3-7.7) k/uL Lymphocytes # (1.0-4.8) k/uL Monocytes # (0-1.0) k/uL Sodium 135 L (137-145) mmol/L BUN 3 L (7-17) mg/dL Creatinine 0.33 L (0.52-1.04) mg/dL Total Bilirubin 22.4 H* (0.2-1.3) mg/dL Conjugated Bilirubin 16.1 H (0.0-0.3) mg/dL Unconjugated Bilirubin 1.9 H (0.0-1.1) mg/dL Delta Bilirubin 4.4 H (0.0-0.2) mg/dL AST 184 H (14-36) U/L ALT 57 H (9-52) U/L Alkaline Phosphatase 723 H (38-126) U/L Total Protein 5.8 L (6.3-8.2) g/dL Albumin 2.5 L (3.5-5.0) g/dL Microbiology - Last 24 Hours (Table) 08/27/18 17:57 Blood Culture - Preliminary Blood No Growth after 96 hours Assessment and Plan Plan: Assessment and Plan Assessment: 1. Metastatic cholangiocarcinoma: - Original DIagnosis 2017, whipple and adjuvant chemoradiation - 07/26/18 - Recurrence evidence by positive liver biopsy - She was to start next line therapy with FOLFOX although admitted with sudden onset Jaundice. 2. Hyperbilirubinemia and transaminitis likely due to metastatic cholangiocarcinoma: - Progressive, total bili up to 22 - MRI shows complete replacement of liver tissue by tumor and a potential concern of disease to spine Plan: Discussed current disease state and rapid disease progression and aggressive features again with patient this am. Treatment limitations secondary to her hyperbilirubinemia were also discussed. She states understanding of severity and limited options, although does want to proceed with any available options. If Capecitabine is used at a reduced dose, the concern is obtaining the drug and time frame to allow effects maybe limited. She is aware of this.
[2018-09-01 12:12] LABS: INR 1.5 (<1.2); Prothrombin Time 13.6 sec (9.0-12.0)
--- NOTE | 2018-09-01 13:17 | P.PN ---
Subjective Progress Note Date: 09/01/18 Principal diagnosis: Anjelica Bile duct cancer 53-year-old female diagnosed with bile duct cancer 2017 status post Whipple chemoradiation. Admitted with new onset of jaundice abdominal pain. She noticed jaundice a few days ago with dark colored urine. CT imaging June reported hepatic mass she underwent core liver biopsy 07/23/2018 with findings of metastatic adenocarcinoma consistent with primary upper GI versus pancreatobiliary tract origin. Total bilirubin around the time of biopsy was 1.0. AST 51. ALT 31. AP 264. She was seen by oncology and scheduled for chemotherapy this upcoming Saturday. On admission total bilirubin increased 18.5. Conjugated 13.4. AST 145. ALT 54. AP 926. INR 1.4. White count 14. Hemoglobin 12.8. Platelet 261. 08/29/2018 Patient is seen and evaluated in room at bedside; patient relates that pain is controlled with pain medication; feeling somewhat depressed and not sure what course of action is in regards to her treatment; patient relates she's been told by GI for possible MRI and further recommendations after MRI is completed 08/30/2018; MRI results of abdomen showing complete replacement of her liver tissue with malignancy was discussed with patient in great detail; she was very depressed BP with the news; patient was started on Ativan when necessary for anxiety and pain medication regimen was escalated; total bilirubin is continuously trending up; oncology has seen the patient and have recommended possible palliative care ; shouldn't has decided for treatment even though any chemotherapeutic treatment would be palliative; oncology to set out of plan of care and treatment schedule with patient tomorrow 08/31/2018 Patient is seen and evaluated in follow-up; patient seems to be less anxious and weepy; continues to have worsening of yellow discoloration of the skin; relates he has had a detailed discussion with oncology service and does understand all the treatments given to her would be only palliative; patient further relates that she is still prepared to take her chances for treatment Objective - Vital Signs Vital signs: Vital Signs Temp 97.1 F L 09/01/18 05:55 Pulse 95 09/01/18 05:55 Resp 18 09/01/18 05:55 BP 104/61 09/01/18 05:55 Pulse Ox 95 09/01/18 05:55 Intake & Output 08/31/18 09/01/18 09/01/18 18:59 06:59 18:59 Weight 70.307 kg Other: Voiding Method Toilet Toilet # Voids 3 2 # Bowel Movements 2 - Exam Patient is lying in the bed comfortably, no acute distress, awake alert and oriented.. HEENT: Normocephalic. Neck is supple. Pupils reactive. Icterus positive. Nostrils clear. Oral cavity is moist. Ears reveal no drainage. Neck reveals no JVD, carotid bruits, or thyromegaly. CHEST EXAMINATION: Trachea is central. Symmetrical expansion. Bibasilar diminished air entry. Lung m[place] clear to auscultation and percussion. CARDIAC: Normal S1, S2 with no gallops. No murmurs ABDOMEN: Soft. Right upper quadrant tenderness. Bowel sounds normal. No organomegaly. No abdominal bruits. Extremities: reveal no edema. No clubbing or cyanosis Neurologically awake, alert, oriented x3 with well-coordinated movements. No focal deficits noted Skin: No rash or skin lesions. Patient does have a list discoloration of the skin. Psychiatric: Coperative. Nonsuicidal Musculoskeletal: No joint swelling or deformity. Normal range of motion. - Labs CBC & Chem 7: 09/01/18 07:53 09/01/18 07:53 Labs: Abnormal Lab Results - Last 24 Hours (Table) 08/31/18 08/31/18 09/01/18 Range/Units 10:53 10:53 07:53 WBC 12.9 H 14.9 H (3.8-10.6) k/uL RBC 3.43 L 3.44 L (3.80-5.40) m/uL Hgb 11.3 L 11.2 L (11.4-16.0) gm/dL MCV 102.6 H (80.0-100.0) fL RDW 16.7 H 16.7 H (11.5-15.5) % Neutrophils # 10.9 H 12.5 H (1.3-7.7) k/uL Lymphocytes # 0.5 L 0.6 L (1.0-4.8) k/uL Monocytes # 1.3 H (0-1.0) k/uL Sodium 132 L (137-145) mmol/L BUN 3 L (7-17) mg/dL Creatinine 0.33 L (0.52-1.04) mg/dL Total Bilirubin 20.8 H* (0.2-1.3) mg/dL Conjugated Bilirubin 15.1 H (0.0-0.3) mg/dL Unconjugated Bilirubin 1.7 H (0.0-1.1) mg/dL Delta Bilirubin 4.0 H (0.0-0.2) mg/dL AST 145 H (14-36) U/L ALT 55 H (9-52) U/L Alkaline Phosphatase 656 H (38-126) U/L Total Protein 5.5 L (6.3-8.2) g/dL Albumin 2.4 L (3.5-5.0) g/dL 09/01/18 Range/Units 07:53 WBC (3.8-10.6) k/uL RBC (3.80-5.40) m/uL Hgb (11.4-16.0) gm/dL MCV (80.0-100.0) fL RDW (11.5-15.5) % Neutrophils # (1.3-7.7) k/uL Lymphocytes # (1.0-4.8) k/uL Monocytes # (0-1.0) k/uL Sodium 135 L (137-145) mmol/L BUN 3 L (7-17) mg/dL Creatinine 0.33 L (0.52-1.04) mg/dL Total Bilirubin 22.4 H* (0.2-1.3) mg/dL Conjugated Bilirubin 16.1 H (0.0-0.3) mg/dL Unconjugated Bilirubin 1.9 H (0.0-1.1) mg/dL Delta Bilirubin 4.4 H (0.0-0.2) mg/dL AST 184 H (14-36) U/L ALT 57 H (9-52) U/L Alkaline Phosphatase 723 H (38-126) U/L Total Protein 5.8 L (6.3-8.2) g/dL Albumin 2.5 L (3.5-5.0) g/dL Microbiology - Last 24 Hours (Table) 08/27/18 17:57 Blood Culture - Preliminary Blood No Growth after 96 hours Assessment and Plan Assessment: 1. Obstructive jaundice/hyperbilirubinemia likely intrahepatic with metastatic metastatic cholangiocarcinoma. - Oncology and GI service on board; oncology recommending possible MRI evaluation by GI service for further recommendations 2. Possible acute cholangitis - Patient remains on IV ceftriaxone and Flagyl - GI is following and further recommendations elevated after MRI is completed 3. Primary bile duct internal carcinoma diagnosed in 2017. - Status post Whipple's procedure and adjuvant chemotherapy 4. Chronic pain due to underlying cancer - Patient remains on IV Dilaudid 1 mg every 3 hours when necessary along with Toradol 15 mg IV every 6 hours - We will continue home dose of morphine sulfate 30 mg every 12 hours 5. Coagulopathy with INR 1.4; secondary to underlying disease; we will continue to monitor PT/INR 6. Elevated liver enzymes due to metastatic lesions 7. Chronic tobacco use; counseling done for cessation of smoking 8. DVT prophylaxis. Patient is already auto anticoagulated Plan: Patient be continued on pain management, IV fluids and antibiotics in the form of ceftriaxone and Flagyl. GI and oncology has seen the patient. workup including liver-MRI/CT was ordered. Further recommendations based on the clinical course. Prognosis is poor. Time with Patient: Greater than 30
--- NOTE | 2018-09-01 13:25 | P.PN ---
Subjective Progress Note Date: 09/01/18 Principal diagnosis: Anjelica Bile duct cancer 53-year-old female diagnosed with bile duct cancer 2017 status post Whipple chemoradiation. Admitted with new onset of jaundice abdominal pain. She noticed jaundice a few days ago with dark colored urine. CT imaging June reported hepatic mass she underwent core liver biopsy 07/23/2018 with findings of metastatic adenocarcinoma consistent with primary upper GI versus pancreatobiliary tract origin. Total bilirubin around the time of biopsy was 1.0. AST 51. ALT 31. AP 264. She was seen by oncology and scheduled for chemotherapy this upcoming Saturday. On admission total bilirubin increased 18.5. Conjugated 13.4. AST 145. ALT 54. AP 926. INR 1.4. White count 14. Hemoglobin 12.8. Platelet 261. 08/29/2018 Patient is seen and evaluated in room at bedside; patient relates that pain is controlled with pain medication; feeling somewhat depressed and not sure what course of action is in regards to her treatment; patient relates she's been told by GI for possible MRI and further recommendations after MRI is completed 08/30/2018; MRI results of abdomen showing complete replacement of her liver tissue with malignancy was discussed with patient in great detail; she was very depressed BP with the news; patient was started on Ativan when necessary for anxiety and pain medication regimen was escalated; total bilirubin is continuously trending up; oncology has seen the patient and have recommended possible palliative care ; shouldn't has decided for treatment even though any chemotherapeutic treatment would be palliative; oncology to set out of plan of care and treatment schedule with patient tomorrow 08/31/2018 Patient is seen and evaluated in follow-up; patient seems to be less anxious and weepy; continues to have worsening of yellow discoloration of the skin; relates he has had a detailed discussion with oncology service and does understand all the treatments given to her would be only palliative; patient further relates that she is still prepared to take her chances for treatment 09/01/2018; Patient is seen and evaluated for follow-up on recurrent and progressive cholangiocarcinoma; patient is tearful today in follow-up regarding the rapid recurrence and spread of her disease. She does not want to go home with hospice or palliative or comfort care. She is adament about treatment options, given the fact that treatment may not be beneficial at this time, she is still willing and wanting to pursue with therapy options. Patient relates she did have a detailed discussion regarding treatment options with oncology service; Discussed current disease state and rapid disease progression and aggressive features again with patient this am. According to oncology there are treatment limitations secondary to her hyperbilirubinemia. She states understanding of severity and limited options, although does want to proceed with any available options. Per oncology If Capecitabine is used at a reduced dose, the concern is obtaining the drug and time frame to allow effects maybe limited. She is aware of this. Objective - Vital Signs Vital signs: Vital Signs Temp 97.1 F L 09/01/18 05:55 Pulse 95 09/01/18 05:55 Resp 18 09/01/18 05:55 BP 104/61 09/01/18 05:55 Pulse Ox 95 09/01/18 05:55 Intake & Output 08/31/18 09/01/18 09/01/18 18:59 06:59 18:59 Weight 70.307 kg Other: Voiding Method Toilet Toilet # Voids 3 2 # Bowel Movements 2 - Exam Patient is lying in the bed comfortably, no acute distress, awake alert and oriented.. HEENT: Normocephalic. Neck is supple. Pupils reactive. Icterus positive. Nostrils clear. Oral cavity is moist. Ears reveal no drainage. Neck reveals no JVD, carotid bruits, or thyromegaly. CHEST EXAMINATION: Trachea is central. Symmetrical expansion. Bibasilar diminished air entry. Lung middleton clear to auscultation and percussion. CARDIAC: Normal S1, S2 with no gallops. No murmurs ABDOMEN: Soft. Right upper quadrant tenderness. Bowel sounds normal. No organomegaly. No abdominal bruits. Extremities: reveal no edema. No clubbing or cyanosis Neurologically awake, alert, oriented x3 with well-coordinated movements. No focal deficits noted Skin: No rash or skin lesions. Patient does have a list discoloration of the skin. Psychiatric: Coperative. Nonsuicidal Musculoskeletal: No joint swelling or deformity. Normal range of motion. - Labs CBC & Chem 7: 09/01/18 07:53 09/01/18 07:53 Labs: Abnormal Lab Results - Last 24 Hours (Table) 09/01/18 09/01/18 09/01/18 Range/Units 07:53 07:53 10:32 WBC 14.9 H (3.8-10.6) k/uL RBC 3.44 L (3.80-5.40) m/uL Hgb 11.2 L (11.4-16.0) gm/dL RDW 16.7 H (11.5-15.5) % Neutrophils # 12.5 H (1.3-7.7) k/uL Lymphocytes # 0.6 L (1.0-4.8) k/uL Monocytes # 1.3 H (0-1.0) k/uL PT 13.6 H (9.0-12.0) sec INR 1.5 H (<1.2) Sodium 135 L (137-145) mmol/L BUN 3 L (7-17) mg/dL Creatinine 0.33 L (0.52-1.04) mg/dL Total Bilirubin 22.4 H* (0.2-1.3) mg/dL Conjugated Bilirubin 16.1 H (0.0-0.3) mg/dL Unconjugated Bilirubin 1.9 H (0.0-1.1) mg/dL Delta Bilirubin 4.4 H (0.0-0.2) mg/dL AST 184 H (14-36) U/L ALT 57 H (9-52) U/L Alkaline Phosphatase 723 H (38-126) U/L Total Protein 5.8 L (6.3-8.2) g/dL Albumin 2.5 L (3.5-5.0) g/dL Microbiology - Last 24 Hours (Table) 08/27/18 17:57 Blood Culture - Preliminary Blood No Growth after 96 hours Assessment and Plan Assessment: 1. Obstructive jaundice/hyperbilirubinemia likely intrahepatic with metastatic metastatic cholangiocarcinoma. - Oncology and GI service on board; oncology recommending possible MRI evaluation by GI service for further recommendations 2. Possible acute cholangitis - Patient remains on IV ceftriaxone and Flagyl - GI is following and further recommendations elevated after MRI is completed 3. Primary bile duct internal carcinoma diagnosed in 2017. - Status post Whipple's procedure and adjuvant chemotherapy 4. Chronic pain due to underlying cancer - Patient remains on IV Dilaudid 1 mg every 3 hours when necessary along with Toradol 15 mg IV every 6 hours - We will continue home dose of morphine sulfate 30 mg every 12 hours 5. Coagulopathy with INR 1.4; secondary to underlying disease; we will continue to monitor PT/INR 6. Elevated liver enzymes due to metastatic lesions 7. Chronic tobacco use; counseling done for cessation of smoking 8. DVT prophylaxis. Patient is already auto anticoagulated Plan: Patient be continued on pain management, IV fluids and antibiotics in the form of ceftriaxone and Flagyl. GI and oncology has seen the patient. workup including liver-MRI/CT was ordered. Further recommendations based on the clinical course. Prognosis is poor. Time with Patient: Greater than 30
[2018-09-02] MEDS: HYDROmorphone 1 MG/ML 1 ML SYRINGE IVP PRN ×7 (03:07→21:52)
[2018-09-02] MEDS: MORPHINE SULFATE ER 30 MG TABLET PO PRN ×2 (08:27→20:17)
[2018-09-02] MEDS: METOCLOPRAMIDE 5 MG/ML 2 ML VIAL IVP SCH ×2 (08:29→20:18)
[2018-09-02] MEDS: metroNIDAZOLE-NS PMX 500 MG in SALINE 1 100ML.BAG IVPB SCH ×3 (08:29→23:36)
[2018-09-02 08:33] LABS: Anisocytosis Slight; Basophils # (A) 0.1 k/uL (0-0.2); Basophils % (A) 1 %; Eosinophils # (A) 0.3 k/uL (0-0.7); Eosinophils % (A) 2 %; HCT 34.9 % (34.0-46.0); HGB 11.4 gm/dL (11.4-16.0); Lymphocytes # (A) 0.6 k/uL (1.0-4.8); Lymphocytes % (A) 4 %; MCH 32.9 pg (25.0-35.0); MCHC 32.7 g/dL (31.0-37.0); MCV 100.7 fL (80.0-100.0); Macrocytosis Slight; Monocytes # (A) 1.2 k/uL (0-1.0); Monocytes % (A) 7 %; Neutrophils # (A) 13.8 k/uL (1.3-7.7); Neutrophils % (A) 85 %; Platelet Count 228 k/uL (150-450); RBC 3.47 m/uL (3.80-5.40); RDW 16.8 % (11.5-15.5); WBC 16.2 k/uL (3.8-10.6)
[2018-09-02 08:37] LABS: ALT 57 U/L (9-52); AST 166 U/L (14-36); Albumin 2.3 g/dL (3.5-5.0); Alkaline Phosphatase 642 U/L (38-126); Anion Gap 8 mmol/L; Bilirubin, Conjugated 16.4 mg/dL (0.0-0.3); Bilirubin,Unconjugated 1.7 mg/dL (0.0-1.1); Blood Urea Nitrogen 3 mg/dL (7-17); Calcium 8.6 mg/dL (8.4-10.2); Carbon Dioxide 27 mmol/L (22-30); Chloride 100 mmol/L (98-107); Glucose 81 mg/dL (74-99); Potassium 3.5 mmol/L (3.5-5.1); Sodium 135 mmol/L (137-145); Total Protein 5.5 g/dL (6.3-8.2)
[2018-09-02 08:46] LABS: Bilirubin, Delta 4.3 mg/dL (0.0-0.2)
[2018-09-02 09:02] LABS: Total Bilirubin 22.4 mg/dL (0.2-1.3)
--- NOTE | 2018-09-02 17:06 | P.PN ---
Subjective Progress Note Date: 09/02/18 Principal diagnosis: Cholangiocarcinoma - Recurrent and Progressive Sharmin seen in follow-up today and sister at bedside. patient intially was recommended to start treatment last month, was scheduled although refused and wished to moved forward with holistic therapy instead of the recommended chemotherapy, now the cancer has greatly progressed causing complete take over of her liver, she is adament to begin therapy at this time. A long face to face discussion was had with her and sister today that it is not our recommendations to move forward with chemo at this time as the risks may outweigh its benefits. She is fully aware that receiving treatment may induce the risk of decreased quality of life and potentially sooner. We will move forward per her wishes although only with her full awareness of the risks which her and her sister have both verbally expressed understanding that the benefit of chemotherapy at this point has a very low risk of benefit. Objective - Vital Signs Vital signs: Vital Signs Temp 97.7 F 09/02/18 14:50 Pulse 88 09/02/18 16:19 Resp 20 09/02/18 16:19 BP 111/70 09/02/18 16:19 Pulse Ox 93 L 09/02/18 16:19 Intake & Output 09/01/18 09/02/18 09/02/18 18:59 06:59 18:59 Intake Total 600 520 600 Balance 600 520 600 Weight 70.307 kg Intake: IV 520 Sodium Chloride 0.9% 1, 320 000 ml @ 20 mls/hr IV . Q24H AN[facility] Rx#:[id number] metroNIDAZOLE-NS PMX 500 200 mg In Saline 1 100ml.bag @ 100 mls/hr IVPB Q8HR ANIA Rx#:[id number] Oral 600 600 Other: Voiding Method Toilet # Voids 1 1 3 # Bowel Movements 1 - Exam Exam General: In no acute distress. HEENT: Scleral icterus. Mucosa moist. Neck: Neck supple. Lungs: CTA-B. Heart: RRR. No LE edema. Abdomen: Soft. Significant hepatomegaly. MSK: 4/4 strength in all 4 extremities. Neuro: Alert and oriented 3. No obvious gross neurologic deficits. Skin: Jaundice. Psych: Appropriate affect. - Labs CBC & Chem 7: 09/02/18 07:25 09/02/18 07:25 Labs: Abnormal Lab Results - Last 24 Hours (Table) 09/02/18 09/02/18 Range/Units 07:25 07:25 WBC 16.2 H (3.8-10.6) k/uL RBC 3.47 L (3.80-5.40) m/uL MCV 100.7 H (80.0-100.0) fL RDW 16.8 H (11.5-15.5) % Neutrophils # 13.8 H (1.3-7.7) k/uL Lymphocytes # 0.6 L (1.0-4.8) k/uL Monocytes # 1.2 H (0-1.0) k/uL Sodium 135 L (137-145) mmol/L BUN 3 L (7-17) mg/dL Creatinine 0.34 L (0.52-1.04) mg/dL Total Bilirubin 22.4 H* (0.2-1.3) mg/dL Conjugated Bilirubin 16.4 H (0.0-0.3) mg/dL Unconjugated Bilirubin 1.7 H (0.0-1.1) mg/dL Delta Bilirubin 4.3 H (0.0-0.2) mg/dL AST 166 H (14-36) U/L ALT 57 H (9-52) U/L Alkaline Phosphatase 642 H (38-126) U/L Total Protein 5.5 L (6.3-8.2) g/dL Albumin 2.3 L (3.5-5.0) g/dL Microbiology - Last 24 Hours (Table) 08/27/18 17:57 Blood Culture - Preliminary Blood No Growth after 120 hours Assessment and Plan Plan: Assessment and Plan Assessment: 1. Metastatic cholangiocarcinoma: - Original DIagnosis 2017, whipple and adjuvant chemoradiation - 07/26/18 - Recurrence evidence by positive liver biopsy - She was to start next line therapy with FOLFOX although admitted with sudden onset Jaundice. - Overall prognosis is poor and patient understands with treatment the risks may outweigh its benfits. She will be transferred to the oncology floor to receive oxaliplatin at a dose reduction and will prescribe PO xeloda therapy. 2. Hyperbilirubinemia and transaminitis likely due to metastatic cholangiocarcinoma: - Progressive, total bili up to 22 - MRI shows complete replacement of liver tissue by tumor and a potential concern of disease to spine Plan: Discussed current disease state and rapid disease progression and aggressive features again with patient this am. Treatment limitations secondary to her hyperbilirubinemia were also discussed. She states understanding of severity and limited options, although does want to proceed with any available options. If Capecitabine is used at a reduced dose, the concern is obtaining the drug and time frame to allow effects maybe limited. She is aware of this. Greater than 25 minutes spent face to face discussing the palliative intent, risks and benefits of treatment. In which they are fuly aware of the poor prognostic potentials. Physician Attestation: I have completed the full history and physical for this patient and agree with above dictation by Marycarmen Quiroga NP dictated as a scribe. Time with Patient: Greater than 30 (palliative treatment risks and benefits.)
[2018-09-02] MEDS: ONDANSETRON 4 MG/2 ML VIAL IVP PRN (19:19)
[2018-09-02] MEDS: SODIUM CHLORIDE 0.9% 1,000 ML IV SCH (20:18)
[2018-09-03] MEDS: HYDROmorphone 1 MG/ML 1 ML SYRINGE IVP PRN ×8 (00:53→22:57)
[2018-09-03] MEDS: metroNIDAZOLE-NS PMX 500 MG in SALINE 1 100ML.BAG IVPB SCH ×2 (07:54→15:30)
[2018-09-03] MEDS: MORPHINE SULFATE ER 30 MG TABLET PO PRN ×2 (07:54→21:39)
[2018-09-03] MEDS: METOCLOPRAMIDE 5 MG/ML 2 ML VIAL IVP SCH ×2 (08:44→21:42)
--- NOTE | 2018-09-03 13:23 | P.PN ---
Subjective Progress Note Date: 09/03/18 Principal diagnosis: Cholangiocarcinoma - Recurrent and Progressive Sharmin seen in follow-up today she will transfer to oncology for chemotherapy Objective - Vital Signs Vital signs: Vital Signs Temp 98.7 F 09/03/18 07:51 Pulse 92 09/03/18 09:47 Resp 20 09/03/18 09:47 BP 96/62 09/03/18 09:47 Pulse Ox 94 L 09/03/18 09:47 Intake & Output 09/02/18 09/03/18 09/03/18 18:59 06:59 18:59 Intake Total 1200 900 Balance 1200 900 Weight 70.307 kg Intake: Oral 1200 900 Other: Voiding Method Toilet Toilet Toilet # Voids 1 2 - Exam Exam General: In no acute distress. HEENT: Scleral icterus. Mucosa moist. Neck: Neck supple. Lungs: CTA-B. Heart: RRR. No LE edema. Abdomen: Soft. Significant hepatomegaly. MSK: 4/4 strength in all 4 extremities. Neuro: Alert and oriented 3. No obvious gross neurologic deficits. Skin: Jaundice. Psych: Appropriate affect. - Labs CBC & Chem 7: 09/02/18 07:25 09/02/18 07:25 Labs: Microbiology - Last 24 Hours (Table) 08/27/18 17:57 Blood Culture - Final Blood No Growth after 144 hours Assessment and Plan Plan: Assessment and Plan Assessment: 1. Metastatic cholangiocarcinoma: - Original DIagnosis 2017, whipple and adjuvant chemoradiation - 07/26/18 - Recurrence evidence by positive liver biopsy - She was to start next line therapy with FOLFOX although admitted with sudden onset Jaundice. - Overall prognosis is poor and patient understands with treatment the risks may outweigh its benfits. She will be transferred to the oncology floor to receive oxaliplatin at a dose reduction and will prescribe PO xeloda therapy. - Refused treatment last month, now wanting treatment despite low probabilty of effectiveness, patient and sister fully aware risks and potential benefits 2. Hyperbilirubinemia and transaminitis likely due to metastatic cholangiocarcinoma: - Progressive, total bili up to 22 - MRI shows complete replacement of liver tissue by tumor and a potential concern of disease to spine Plan: She will begin chemotherapy with xeloda pills and oxaliplatin. Physician Attest: I have completed the full history and physical of this patient and agree with above dictation by Marycarmen Quiroga NP. Dictated as a ascribe.
--- NOTE | 2018-09-03 23:22 | P.PN ---
Subjective Progress Note Date: 09/02/18 Principal diagnosis: Metastatic primary biliary ductal Carcinoma Jaundice 53-year-old female diagnosed with bile duct cancer 2017 status post Whipple chemoradiation. Admitted with new onset of jaundice abdominal pain. She noticed jaundice a few days ago with dark colored urine. CT imaging June reported hepatic mass she underwent core liver biopsy 07/23/2018 with findings of metastatic adenocarcinoma consistent with primary upper GI versus pancreatobiliary tract origin. Total bilirubin around the time of biopsy was 1.0. AST 51. ALT 31. AP 264. She was seen by oncology and scheduled for chemotherapy this upcoming Saturday. On admission total bilirubin increased 18.5. Conjugated 13.4. AST 145. ALT 54. AP 926. INR 1.4. White count 14. Hemoglobin 12.8. Platelet 261. 08/29/2018 Patient is seen and evaluated in room at bedside; patient relates that pain is controlled with pain medication; feeling somewhat depressed and not sure what course of action is in regards to her treatment; patient relates she's been told by GI for possible MRI and further recommendations after MRI is completed 08/30/2018; MRI results of abdomen showing complete replacement of her liver tissue with malignancy was discussed with patient in great detail; she was very depressed BP with the news; patient was started on Ativan when necessary for anxiety and pain medication regimen was escalated; total bilirubin is continuously trending up; oncology has seen the patient and have recommended possible palliative care ; shouldn't has decided for treatment even though any chemotherapeutic treatment would be palliative; oncology to set out of plan of care and treatment schedule with patient tomorrow 08/31/2018 Patient is seen and evaluated in follow-up; patient seems to be less anxious and weepy; continues to have worsening of yellow discoloration of the skin; relates he has had a detailed discussion with oncology service and does understand all the treatments given to her would be only palliative; patient further relates that she is still prepared to take her chances for treatment 09/01/2018; Patient is seen and evaluated for follow-up on recurrent and progressive cholangiocarcinoma; patient is tearful today in follow-up regarding the rapid recurrence and spread of her disease. She does not want to go home with hospice or palliative or comfort care. She is adament about treatment options, given the fact that treatment may not be beneficial at this time, she is still willing and wanting to pursue with therapy options. Patient relates she did have a detailed discussion regarding treatment options with oncology service; Discussed current disease state and rapid disease progression and aggressive features again with patient this am. According to oncology there are treatment limitations secondary to her hyperbilirubinemia. She states understanding of severity and limited options, although does want to proceed with any available options. Per oncology If Capecitabine is used at a reduced dose, the concern is obtaining the drug and time frame to allow effects maybe limited. She is aware of this. 09/02/2018 Patient says that she doesn't want to and wants to get treated with chemotherapy. Oncology is planning for chemotherapy at this time after discussion with the patient and her sister in detail regarding risks and benefits. Pain is fairly controlled. No fever no chills. No commerce of chest pain or short shortness of breath. No other acute overnight issues. No nausea vomiting or diarrhea. Current medications reviewed. Objective - Vital Signs Vital signs: Vital Signs Temp 97.7 F 09/02/18 14:50 Pulse 91 09/02/18 14:50 Resp 16 09/02/18 14:50 BP 94/57 09/02/18 14:50 Pulse Ox 94 L 09/02/18 14:50 Intake & Output 09/01/18 09/02/18 09/02/18 18:59 06:59 18:59 Intake Total 600 520 600 Balance 600 520 600 Weight 70.307 kg Intake: IV 520 Sodium Chloride 0.9% 1, 320 000 ml @ 20 mls/hr IV . Q24H AN[facility] Rx#:[id number] metroNIDAZOLE-NS PMX 500 200 mg In Saline 1 100ml.bag @ 100 mls/hr IVPB Q8HR ANIA Rx#:[id number] Oral 600 600 Other: Voiding Method Toilet # Voids 1 1 3 # Bowel Movements 1 - Exam Patient is lying in the bed comfortably, no acute distress, awake alert and oriented.. HEENT: Normocephalic. Neck is supple. Pupils reactive. Icterus positive. Nostrils clear. Oral cavity is moist. Ears reveal no drainage. Neck reveals no JVD, carotid bruits, or thyromegaly. CHEST EXAMINATION: Trachea is central. Symmetrical expansion. Bibasilar diminished air entry. Lung m[place] clear to auscultation and percussion. CARDIAC: Normal S1, S2 with no gallops. No murmurs ABDOMEN: Soft. Right upper quadrant tenderness. Bowel sounds normal. No organomegaly. No abdominal bruits. Extremities: reveal no edema. No clubbing or cyanosis Neurologically awake, alert, oriented x3 with well-coordinated movements. No focal deficits noted Skin: No rash or skin lesions. Patient does have a list discoloration of the skin. Psychiatric: Coperative. Nonsuicidal Musculoskeletal: No joint swelling or deformity. Normal range of motion. - Labs CBC & Chem 7: 09/02/18 07:25 09/02/18 07:25 Labs: Abnormal Lab Results - Last 24 Hours (Table) 09/02/18 09/02/18 Range/Units 07:25 07:25 WBC 16.2 H (3.8-10.6) k/uL RBC 3.47 L (3.80-5.40) m/uL MCV 100.7 H (80.0-100.0) fL RDW 16.8 H (11.5-15.5) % Neutrophils # 13.8 H (1.3-7.7) k/uL Lymphocytes # 0.6 L (1.0-4.8) k/uL Monocytes # 1.2 H (0-1.0) k/uL Sodium 135 L (137-145) mmol/L BUN 3 L (7-17) mg/dL Creatinine 0.34 L (0.52-1.04) mg/dL Total Bilirubin 22.4 H* (0.2-1.3) mg/dL Conjugated Bilirubin 16.4 H (0.0-0.3) mg/dL Unconjugated Bilirubin 1.7 H (0.0-1.1) mg/dL Delta Bilirubin 4.3 H (0.0-0.2) mg/dL AST 166 H (14-36) U/L ALT 57 H (9-52) U/L Alkaline Phosphatase 642 H (38-126) U/L Total Protein 5.5 L (6.3-8.2) g/dL Albumin 2.3 L (3.5-5.0) g/dL Microbiology - Last 24 Hours (Table) 08/27/18 17:57 Blood Culture - Preliminary Blood No Growth after 120 hours Assessment and Plan Assessment: Obstructive jaundice/hyperbilirubinemia likely intrahepatic with metastatic adenocarcinoma the bile ducts. Possible acute cholangitis Primary bile duct internal carcinoma diagnosed in 2017. Status post Whipple's procedure and adjuvant chemotherapy Chronic pain due to underlying cancer Coagulopathy with INR 1.4 Elevated liver enzymes due to metastatic lesions Currently in the day smoker Anxiety DVT prophylaxis. Patient is already auto anticoagulated Plan: Patient be continued on pain management, IV fluids and antibiotics in the form of ceftriaxone and Flagyl. GI and oncology has seen the patient. workup including liver-MRI/CT was ordered. MRI of the abdomen showed near complete replacement of the liver with metastatic disease. Suspicious metastatic lesion in the spine was also noted. Patient wants to get treated and continues to be on full code now. Oncology is following and is receiving for chemotherapy. Further recommendations based on the clinical course. Prognosis is poor. Time with Patient: Greater than 30
--- NOTE | 2018-09-03 23:25 | P.PN ---
Subjective Progress Note Date: 09/03/18 Principal diagnosis: Metastatic cholangio Carcinoma Jaundice 53-year-old female diagnosed with bile duct cancer 2017 status post Whipple chemoradiation. Admitted with new onset of jaundice abdominal pain. She noticed jaundice a few days ago with dark colored urine. CT imaging June reported hepatic mass she underwent core liver biopsy 07/23/2018 with findings of metastatic adenocarcinoma consistent with primary upper GI versus pancreatobiliary tract origin. Total bilirubin around the time of biopsy was 1.0. AST 51. ALT 31. AP 264. She was seen by oncology and scheduled for chemotherapy this upcoming Saturday. On admission total bilirubin increased 18.5. Conjugated 13.4. AST 145. ALT 54. AP 926. INR 1.4. White count 14. Hemoglobin 12.8. Platelet 261. 08/29/2018 Patient is seen and evaluated in room at bedside; patient relates that pain is controlled with pain medication; feeling somewhat depressed and not sure what course of action is in regards to her treatment; patient relates she's been told by GI for possible MRI and further recommendations after MRI is completed 08/30/2018; MRI results of abdomen showing complete replacement of her liver tissue with malignancy was discussed with patient in great detail; she was very depressed BP with the news; patient was started on Ativan when necessary for anxiety and pain medication regimen was escalated; total bilirubin is continuously trending up; oncology has seen the patient and have recommended possible palliative care ; shouldn't has decided for treatment even though any chemotherapeutic treatment would be palliative; oncology to set out of plan of care and treatment schedule with patient tomorrow 08/31/2018 Patient is seen and evaluated in follow-up; patient seems to be less anxious and weepy; continues to have worsening of yellow discoloration of the skin; relates he has had a detailed discussion with oncology service and does understand all the treatments given to her would be only palliative; patient further relates that she is still prepared to take her chances for treatment 09/01/2018; Patient is seen and evaluated for follow-up on recurrent and progressive cholangiocarcinoma; patient is tearful today in follow-up regarding the rapid recurrence and spread of her disease. She does not want to go home with hospice or palliative or comfort care. She is adament about treatment options, given the fact that treatment may not be beneficial at this time, she is still willing and wanting to pursue with therapy options. Patient relates she did have a detailed discussion regarding treatment options with oncology service; Discussed current disease state and rapid disease progression and aggressive features again with patient this am. According to oncology there are treatment limitations secondary to her hyperbilirubinemia. She states understanding of severity and limited options, although does want to proceed with any available options. Per oncology If Capecitabine is used at a reduced dose, the concern is obtaining the drug and time frame to allow effects maybe limited. She is aware of this. 09/02/2018 Patient says that she doesn't want to and wants to get treated with chemotherapy. Oncology is planning for chemotherapy at this time after discussion with the patient and her sister in detail regarding risks and benefits. Pain is fairly controlled. No fever no chills. No commerce of chest pain or short shortness of breath. No other acute overnight issues. No nausea vomiting or diarrhea. 09/03/2018 Patient denied any complaints of chest pain or worsening shortness of breath. No nausea vomiting or abdominal pain. Pain is controlled with medications including Dilaudid IV. Oncology is planning for chemotherapy. Patient wants to get chemotherapy now. She refused previously. Patient is being transferred to oncology unit. Current medications reviewed. Objective - Vital Signs Vital signs: Vital Signs Temp 98.1 F 09/03/18 15:46 Pulse 86 09/03/18 15:46 Resp 18 09/03/18 15:49 BP 99/56 09/03/18 15:46 Pulse Ox 95 09/03/18 15:46 Intake & Output 09/02/18 09/03/18 09/03/18 18:59 06:59 18:59 Intake Total 1200 900 Balance 1200 900 Weight 70.307 kg Intake: Oral 1200 900 Other: Voiding Method Toilet Toilet Toilet # Voids 1 2 1 - Exam Patient is lying in the bed comfortably, no acute distress, awake alert and oriented.. HEENT: Normocephalic. Neck is supple. Pupils reactive. Icterus positive. Nostrils clear. Oral cavity is moist. Ears reveal no drainage. Neck reveals no JVD, carotid bruits, or thyromegaly. CHEST EXAMINATION: Trachea is central. Symmetrical expansion. Bibasilar diminished air entry. Lung middleton clear to auscultation and percussion. CARDIAC: Normal S1, S2 with no gallops. No murmurs ABDOMEN: Soft. Right upper quadrant tenderness. Bowel sounds normal. No organomegaly. No abdominal bruits. Extremities: reveal no edema. No clubbing or cyanosis Neurologically awake, alert, oriented x3 with well-coordinated movements. No focal deficits noted Skin: No rash or skin lesions. Patient does have a list discoloration of the skin. Psychiatric: Coperative. Nonsuicidal Musculoskeletal: No joint swelling or deformity. Normal range of motion. - Labs CBC & Chem 7: 09/02/18 07:25 09/02/18 07:25 Labs: Microbiology - Last 24 Hours (Table) 08/27/18 17:57 Blood Culture - Final Blood No Growth after 144 hours Assessment and Plan Assessment: Obstructive jaundice/hyperbilirubinemia likely intrahepatic with metastatic adenocarcinoma the bile ducts. Cholangiocarcinoma Hyperbilirubinemia due to cholangiocarcinoma Possible acute cholangitis Primary bile duct internal carcinoma diagnosed in 2017. Status post Whipple's procedure and adjuvant chemotherapy Chronic pain due to underlying cancer Coagulopathy with INR 1.4 Elevated liver enzymes due to metastatic lesions Currently in the day smoker Anxiety DVT prophylaxis. Patient is already auto anticoagulated Plan: Patient be continued on pain management, IV fluids and antibiotics in the form of ceftriaxone and Flagyl. GI and oncology has seen the patient. workup including liver-MRI/CT was ordered. MRI of the abdomen showed near complete replacement of the liver with metastatic disease. Suspicious metastatic lesion in the spine was also noted. Patient wants to get treated and continues to be on full code now. Oncology is following and is planning for chemotherapy. Further recommendations based on the clinical course. Prognosis is poor. Time with Patient: Greater than 30
[2018-09-03] MEDS: SODIUM CHLORIDE 0.9% 1,000 ML IV SCH (23:40)
[2018-09-04] MEDS: metroNIDAZOLE-NS PMX 500 MG in SALINE 1 100ML.BAG IVPB SCH ×4 (00:50→23:14)
[2018-09-04] MEDS: HYDROmorphone 1 MG/ML 1 ML SYRINGE IVP PRN ×7 (02:12→23:11)
[2018-09-04 07:52] LABS: ALT 56 U/L (9-52); AST 163 U/L (14-36); Albumin 2.3 g/dL (3.5-5.0); Alkaline Phosphatase 615 U/L (38-126); Anion Gap 6 mmol/L; Blood Urea Nitrogen 3 mg/dL (7-17); Calcium 8.5 mg/dL (8.4-10.2); Carbon Dioxide 27 mmol/L (22-30); Chloride 100 mmol/L (98-107); Glucose 83 mg/dL (74-99); Potassium 3.2 mmol/L (3.5-5.1); Sodium 133 mmol/L (137-145); Total Protein 5.5 g/dL (6.3-8.2)
[2018-09-04 08:03] LABS: Anisocytosis Slight; Basophils # (A) 0.1 k/uL (0-0.2); Basophils % (A) 1 %; Eosinophils # (A) 0.3 k/uL (0-0.7); Eosinophils % (A) 2 %; HCT 33.4 % (34.0-46.0); HGB 10.9 gm/dL (11.4-16.0); Lymphocytes # (A) 0.7 k/uL (1.0-4.8); Lymphocytes % (A) 5 %; MCH 32.6 pg (25.0-35.0); MCHC 32.7 g/dL (31.0-37.0); MCV 99.6 fL (80.0-100.0); Macrocytosis Slight; Mean Platelet Volume 7.9; Monocytes % (A) 6 %; Neutrophils # (A) 13.3 k/uL (1.3-7.7); Neutrophils % (A) 85 %; Platelet Count 241 k/uL (150-450); RBC 3.35 m/uL (3.80-5.40); RDW 16.9 % (11.5-15.5); Total Bilirubin 25.3 mg/dL (0.2-1.3); WBC 15.6 k/uL (3.8-10.6)
[2018-09-04] MEDS: METOCLOPRAMIDE 5 MG/ML 2 ML VIAL IVP SCH ×2 (08:43→21:26)
[2018-09-04] MEDS: MORPHINE SULFATE ER 30 MG TABLET PO PRN ×2 (09:32→21:25)
[2018-09-04] MEDS ORDERED: CAPECITABINE PO SCH (10:00)
[2018-09-04] MEDS ORDERED: FAMOTIDINE 20 MG/2 ML VIAL IV ONE (11:30)
[2018-09-04] MEDS ORDERED: ONDANSETRON 16 MG in SODIUM CHLORIDE 0.9% 50 ML IVPB ONE (11:30)
[2018-09-04] MEDS ORDERED: DEXAMETHASONE SOD PHOSPHATE 10 MG/ML 1 ML VIAL IV ONE (11:30)
[2018-09-04] MEDS ORDERED: WATER IV ONE ×2 (12:00)
[2018-09-04] MEDS ORDERED: DEXTROSE 5% IV ONE ×2 (12:00)
[2018-09-04] MEDS ORDERED: OXALIPLATIN IV ONE ×2 (12:00)
[2018-09-04] MEDS: CAPECITABINE PO SCH ×4 (14:36→21:26)
--- NOTE | 2018-09-04 16:22 | P.PN ---
Subjective Progress Note Date: 09/04/18 Principal diagnosis: Cholangiocarcinoma - Recurrent and Progressive Sharmin seen in follow-up today on Oncology floor, she will be starting chemotherapy today with Capeox. Objective - Vital Signs Vital signs: Vital Signs Temp 97 F L 09/04/18 12:00 Pulse 86 09/04/18 12:00 Resp 16 09/04/18 12:00 BP 97/57 09/04/18 12:00 Pulse Ox 94 L 09/04/18 12:00 Intake & Output 09/03/18 09/04/18 09/04/18 18:59 06:59 18:59 Intake Total 2079 Balance 2079 Weight 82 kg Intake: IV 440 Sodium Chloride 0.9% 1, 140 000 ml @ 20 mls/hr IV . Q24H ANIA Rx#:[id number] metroNIDAZOLE-NS PMX 500 300 mg In Saline 1 100ml.bag @ 100 mls/hr IVPB Q8HR ANIA Rx#:[id number] Oral 1640 Other: Voiding Method Toilet Toilet Toilet # Voids 1 3 - Exam Exam General: In no acute distress. HEENT: Scleral icterus. Mucosa moist. Neck: Neck supple. Lungs: CTA-B. Heart: RRR. No LE edema. Abdomen: Soft. Significant hepatomegaly. MSK: 4/4 strength in all 4 extremities. Neuro: Alert and oriented 3. No obvious gross neurologic deficits. Skin: Jaundice. Psych: Appropriate affect. - Labs CBC & Chem 7: 09/04/18 07:19 09/04/18 07:19 Labs: Abnormal Lab Results - Last 24 Hours (Table) 09/04/18 09/04/18 Range/Units 07:19 07:19 WBC 15.6 H (3.8-10.6) k/uL RBC 3.35 L (3.80-5.40) m/uL Hgb 10.9 L (11.4-16.0) gm/dL Hct 33.4 L (34.0-46.0) % RDW 16.9 H (11.5-15.5) % Neutrophils # 13.3 H (1.3-7.7) k/uL Lymphocytes # 0.7 L (1.0-4.8) k/uL Sodium 133 L (137-145) mmol/L Potassium 3.2 L (3.5-5.1) mmol/L BUN 3 L (7-17) mg/dL Creatinine 0.33 L (0.52-1.04) mg/dL Total Bilirubin 25.3 H* (0.2-1.3) mg/dL AST 163 H (14-36) U/L ALT 56 H (9-52) U/L Alkaline Phosphatase 615 H (38-126) U/L Total Protein 5.5 L (6.3-8.2) g/dL Albumin 2.3 L (3.5-5.0) g/dL Assessment and Plan Plan: Assessment and Plan Assessment: 1. Metastatic cholangiocarcinoma: - Original DIagnosis 2017, whipple and adjuvant chemoradiation - 07/26/18 - Recurrence evidence by positive liver biopsy - She was to start next line therapy with FOLFOX although admitted with sudden onset Jaundice. - Overall prognosis is poor and patient understands with treatment the risks may outweigh its benfits. She will be transferred to the oncology floor to receive oxaliplatin at a dose reduction and will prescribe PO xeloda therapy. - Refused treatment last month, now wanting treatment despite low probabilty of effectiveness, patient and sister fully aware risks and potential benefits 2. Hyperbilirubinemia and transaminitis likely due to metastatic cholangiocarcinoma: - Progressive, - MRI shows complete replacement of liver tissue by tumor and a potential concern of disease to spine Plan: She will begin chemotherapy with xeloda pills and oxaliplatin today, Daily CBC and CMP on chemo Physician Attest: I have completed the full history and physical of this patient and agree with above dictation by Marycarmen Quiroga NP. Dictated as a ascribe.
[2018-09-04] MEDS: SODIUM CHLORIDE 0.9% 1,000 ML IV SCH (20:09)
[2018-09-04] MEDS: ONDANSETRON 4 MG/2 ML VIAL IVP PRN (20:19)
[2018-09-05] MEDS: HYDROmorphone 1 MG/ML 1 ML SYRINGE IVP PRN ×8 (02:22→21:35)
[2018-09-05 08:04] LABS: Anisocytosis Slight; Basophils % (A) 0 %; Eosinophils # (A) 0.1 k/uL (0-0.7); Eosinophils % (A) 0 %; HCT 35.5 % (34.0-46.0); HGB 11.6 gm/dL (11.4-16.0); Lymphocytes # (A) 0.4 k/uL (1.0-4.8); Lymphocytes % (A) 2 %; MCH 32.8 pg (25.0-35.0); MCHC 32.7 g/dL (31.0-37.0); MCV 100.5 fL (80.0-100.0); Macrocytosis Slight; Mean Platelet Volume 7.9; Monocytes # (A) 1.1 k/uL (0-1.0); Monocytes % (A) 5 %; Neutrophils # (A) 21.6 k/uL (1.3-7.7); Neutrophils % (A) 92 %; Platelet Count 289 k/uL (150-450); RBC 3.53 m/uL (3.80-5.40); RDW 16.9 % (11.5-15.5); WBC 23.4 k/uL (3.8-10.6)
[2018-09-05] MEDS: metroNIDAZOLE-NS PMX 500 MG in SALINE 1 100ML.BAG IVPB SCH (08:18)
[2018-09-05 08:20] LABS: ALT 47 U/L (9-52); AST 131 U/L (14-36); Albumin 2.4 g/dL (3.5-5.0); Alkaline Phosphatase 660 U/L (38-126); Anion Gap 9 mmol/L; Blood Urea Nitrogen 8 mg/dL (7-17); Carbon Dioxide 24 mmol/L (22-30); Chloride 99 mmol/L (98-107); Glucose 114 mg/dL (74-99); Potassium 3.8 mmol/L (3.5-5.1); Sodium 132 mmol/L (137-145)
[2018-09-05] MEDS: CAPECITABINE PO SCH ×4 (08:24→22:20)
[2018-09-05] MEDS: METOCLOPRAMIDE 5 MG/ML 2 ML VIAL IVP SCH ×2 (08:27→20:21)
[2018-09-05 08:35] LABS: Total Bilirubin 26.1 mg/dL (0.2-1.3); Total Protein 5.8 g/dL (6.3-8.2)
[2018-09-05] MEDS: MORPHINE SULFATE ER 30 MG TABLET PO PRN (10:32)
[2018-09-05] MEDS ORDERED: FUROSEMIDE 10 MG/ML 4 ML VIAL IV STA (16:10)
[2018-09-05] MEDS ORDERED: POTASSIUM CHLORIDE ER 20 MEQ TAB.ER PO STA (16:19)
[2018-09-05] MEDS: metroNIDAZOLE 500 MG TAB PO SCH ×2 (18:20→22:18)
--- NOTE | 2018-09-05 19:28 | US ---
EXAMINATION TYPE: US venous doppler duplex LE DATE OF EXAM: 09/05/2018 4:09 PM COMPARISON: US CLINICAL HISTORY: pain in legs. SIDE PERFORMED: Bilateral TECHNIQUE: The lower extremity deep venous system is examined utilizing real time linear array sonog mariluz with graded compression, doppler sonography and color-flow sonography. VESSELS IMAGED: External Iliac Vein (EIV) Common Femoral Vein Deep Femoral Vein Greater Saphenous Vein * Femoral Vein Popliteal Vein Small Saphenous Vein * Proximal Calf Veins (* superficial vessels) Extensive leg swelling with pitting edema. Right Leg: Negative for DVT Left Leg: Negative for DVT IMPRESSION: Negative exam. No evidence of deep venous thrombosis in both legs.
--- NOTE | 2018-09-05 19:48 | P.PN ---
Subjective Progress Note Date: 09/05/18 Principal diagnosis: Cholangiocarcinoma - Recurrent and Progressive Sharmin seen in follow-up today on Oncology floor, she is tolerating chemo well , bili continues to trend up. She does not feel her pain is improved, previously attempted to manage pain with fentanyl with relief although insurance change did not cover. Now we have atttempted MS kam without improvement we will trial fentanyl again. She feels her leg swelling is very difficult as well and causing her to be less mobile. We discussed the reason and causes. She states understanding. Will attempt to control pain over weekend so we can plan to hopefully discharge. PT evaluation and recs beneficial Objective - Vital Signs Vital signs: Vital Signs Temp 97.9 F 09/05/18 16:10 Pulse 88 09/05/18 16:10 Resp 17 09/05/18 16:10 BP 104/62 09/05/18 16:10 Pulse Ox 95 09/05/18 16:10 Intake & Output 09/05/18 09/05/18 09/06/18 06:59 18:59 06:59 Intake Total 940 240 Balance 940 240 Intake: IV 300 metroNIDAZOLE-NS PMX 500 300 mg In Saline 1 100ml.bag @ 100 mls/hr IVPB Q8HR ANIA Rx#:[id number] Oral 640 240 Other: Voiding Method Toilet Toilet # Voids 1 3 - Exam Exam General: In no acute distress. HEENT: Scleral icterus. Mucosa moist. Neck: Neck supple. Lungs: CTA-B. Heart: RRR. No LE edema. Abdomen: Soft. Significant hepatomegaly. MSK: 4/4 strength in all 4 extremities. Neuro: Alert and oriented 3. No obvious gross neurologic deficits. Skin: Jaundice. Psych: Appropriate affect. - Labs CBC & Chem 7: 09/05/18 07:38 09/05/18 07:38 Labs: Abnormal Lab Results - Last 24 Hours (Table) 09/05/18 09/05/18 Range/Units 07:38 07:38 WBC 23.4 H (3.8-10.6) k/uL RBC 3.53 L (3.80-5.40) m/uL MCV 100.5 H (80.0-100.0) fL RDW 16.9 H (11.5-15.5) % Neutrophils # 21.6 H (1.3-7.7) k/uL Lymphocytes # 0.4 L (1.0-4.8) k/uL Monocytes # 1.1 H (0-1.0) k/uL Sodium 132 L (137-145) mmol/L Creatinine 0.36 L (0.52-1.04) mg/dL Glucose 114 H (74-99) mg/dL Total Bilirubin 26.1 H* (0.2-1.3) mg/dL AST 131 H (14-36) U/L Alkaline Phosphatase 660 H (38-126) U/L Total Protein 5.8 L (6.3-8.2) g/dL Albumin 2.4 L (3.5-5.0) g/dL Assessment and Plan Plan: Assessment and Plan Assessment: 1. Metastatic cholangiocarcinoma: - Original DIagnosis 2016, whipple and adjuvant chemoradiation - 07/26/18 - Recurrence evidence by positive liver biopsy - She was to start next line therapy with FOLFOX although admitted with sudden onset Jaundice. - Overall prognosis is poor and patient understands with treatment the risks may outweigh its benfits. She will be transferred to the oncology floor to receive oxaliplatin at a dose reduction and will prescribe PO xeloda therapy. - Refused treatment last month, now wanting treatment despite low probabilty of effectiveness, patient and sister fully aware risks and potential benefits 2. Hyperbilirubinemia and transaminitis likely due to metastatic cholangiocarcinoma: - Progressive, - MRI shows complete replacement of liver tissue by tumor and a potential concern of disease to spine Plan: Continue with daily CBC and CMP One time lasix to see if will help with her BLE pitting edema if BLE dopplers negative Hola fraire are ok Will change MS contin to Fentanyl as her pain is persistent and not improving, she expresses how fentanyl did work, although insurance did not cover in past, now MS contin was ineffective we will attempt again as overall goals of care are palliative and comfort we feel fentanyl will be better to help with conversion to a home regimen that will control pain.
[2018-09-05] MEDS: SODIUM CHLORIDE 0.9% 1,000 ML IV SCH (21:39)
--- NOTE | 2018-09-05 22:31 | P.PN ---
Subjective Progress Note Date: 09/04/18 Principal diagnosis: Metastatic cholangio Carcinoma Jaundice 53-year-old female diagnosed with bile duct cancer 2017 status post Whipple chemoradiation. Admitted with new onset of jaundice abdominal pain. She noticed jaundice a few days ago with dark colored urine. CT imaging June reported hepatic mass she underwent core liver biopsy 07/23/2018 with findings of metastatic adenocarcinoma consistent with primary upper GI versus pancreatobiliary tract origin. Total bilirubin around the time of biopsy was 1.0. AST 51. ALT 31. AP 264. She was seen by oncology and scheduled for chemotherapy this upcoming Saturday. On admission total bilirubin increased 18.5. Conjugated 13.4. AST 145. ALT 54. AP 926. INR 1.4. White count 14. Hemoglobin 12.8. Platelet 261. 08/29/2018 Patient is seen and evaluated in room at bedside; patient relates that pain is controlled with pain medication; feeling somewhat depressed and not sure what course of action is in regards to her treatment; patient relates she's been told by GI for possible MRI and further recommendations after MRI is completed 08/30/2018; MRI results of abdomen showing complete replacement of her liver tissue with malignancy was discussed with patient in great detail; she was very depressed BP with the news; patient was started on Ativan when necessary for anxiety and pain medication regimen was escalated; total bilirubin is continuously trending up; oncology has seen the patient and have recommended possible palliative care ; shouldn't has decided for treatment even though any chemotherapeutic treatment would be palliative; oncology to set out of plan of care and treatment schedule with patient tomorrow 08/31/2018 Patient is seen and evaluated in follow-up; patient seems to be less anxious and weepy; continues to have worsening of yellow discoloration of the skin; relates he has had a detailed discussion with oncology service and does understand all the treatments given to her would be only palliative; patient further relates that she is still prepared to take her chances for treatment 09/01/2018; Patient is seen and evaluated for follow-up on recurrent and progressive cholangiocarcinoma; patient is tearful today in follow-up regarding the rapid recurrence and spread of her disease. She does not want to go home with hospice or palliative or comfort care. She is adament about treatment options, given the fact that treatment may not be beneficial at this time, she is still willing and wanting to pursue with therapy options. Patient relates she did have a detailed discussion regarding treatment options with oncology service; Discussed current disease state and rapid disease progression and aggressive features again with patient this am. According to oncology there are treatment limitations secondary to her hyperbilirubinemia. She states understanding of severity and limited options, although does want to proceed with any available options. Per oncology If Capecitabine is used at a reduced dose, the concern is obtaining the drug and time frame to allow effects maybe limited. She is aware of this. 09/02/2018 Patient says that she doesn't want to and wants to get treated with chemotherapy. Oncology is planning for chemotherapy at this time after discussion with the patient and her sister in detail regarding risks and benefits. Pain is fairly controlled. No fever no chills. No commerce of chest pain or short shortness of breath. No other acute overnight issues. No nausea vomiting or diarrhea. 09/03/2018 Patient denied any complaints of chest pain or worsening shortness of breath. No nausea vomiting or abdominal pain. Pain is controlled with medications including Dilaudid IV. Oncology is planning for chemotherapy. Patient wants to get chemotherapy now. She refused previously. Patient is being transferred to oncology unit. 09/04/2018 Patient denied any complaints of chest pain or shortness of breath. Abdominal pain is much improved. No fever no chills. Oncology is starting chemotherapy today with Capeox Current medications reviewed. Objective - Vital Signs Vital signs: Vital Signs Temp 98 F 09/04/18 21:00 Pulse 63 09/04/18 21:00 Resp 18 09/04/18 21:00 BP 103/59 09/04/18 21:00 Pulse Ox 94 L 09/04/18 21:00 Intake & Output 09/04/18 09/04/18 09/05/18 06:59 18:59 06:59 Intake Total 2079 Balance 2079 Weight 82 kg Intake: IV 440 Sodium Chloride 0.9% 1, 140 000 ml @ 20 mls/hr IV . Q24H ANIA Rx#:[id number] metroNIDAZOLE-NS PMX 500 300 mg In Saline 1 100ml.bag @ 100 mls/hr IVPB Q8HR ANIA Rx#:[id number] Oral 1640 Other: Voiding Method Toilet Toilet # Voids 3 3 1 - Exam Patient is lying in the bed comfortably, no acute distress, awake alert and oriented.. HEENT: Normocephalic. Neck is supple. Pupils reactive. Icterus positive. Nostrils clear. Oral cavity is moist. Ears reveal no drainage. Neck reveals no JVD, carotid bruits, or thyromegaly. CHEST EXAMINATION: Trachea is central. Symmetrical expansion. Bibasilar diminished air entry. Lung m[place] clear to auscultation and percussion. CARDIAC: Normal S1, S2 with no gallops. No murmurs ABDOMEN: Soft. Right upper quadrant tenderness. Bowel sounds normal. No organomegaly. No abdominal bruits. Extremities: reveal no edema. No clubbing or cyanosis Neurologically awake, alert, oriented x3 with well-coordinated movements. No focal deficits noted Skin: No rash or skin lesions. Patient does have a list discoloration of the skin. Psychiatric: Coperative. Nonsuicidal Musculoskeletal: No joint swelling or deformity. Normal range of motion. - Labs CBC & Chem 7: 09/05/18 07:38 09/05/18 07:38 Labs: Abnormal Lab Results - Last 24 Hours (Table) 09/04/18 09/04/18 Range/Units 07:19 07:19 WBC 15.6 H (3.8-10.6) k/uL RBC 3.35 L (3.80-5.40) m/uL Hgb 10.9 L (11.4-16.0) gm/dL Hct 33.4 L (34.0-46.0) % RDW 16.9 H (11.5-15.5) % Neutrophils # 13.3 H (1.3-7.7) k/uL Lymphocytes # 0.7 L (1.0-4.8) k/uL Sodium 133 L (137-145) mmol/L Potassium 3.2 L (3.5-5.1) mmol/L BUN 3 L (7-17) mg/dL Creatinine 0.33 L (0.52-1.04) mg/dL Total Bilirubin 25.3 H* (0.2-1.3) mg/dL AST 163 H (14-36) U/L ALT 56 H (9-52) U/L Alkaline Phosphatase 615 H (38-126) U/L Total Protein 5.5 L (6.3-8.2) g/dL Albumin 2.3 L (3.5-5.0) g/dL Assessment and Plan Assessment: Obstructive jaundice/hyperbilirubinemia likely intrahepatic with metastatic adenocarcinoma the bile ducts. Cholangiocarcinoma Hyperbilirubinemia due to cholangiocarcinoma Possible acute cholangitis Primary bile duct internal carcinoma diagnosed in 2017. Status post Whipple's procedure and adjuvant chemotherapy Chronic pain due to underlying cancer Coagulopathy with INR 1.4 Elevated liver enzymes due to metastatic lesions Currently in the day smoker Anxiety DVT prophylaxis. Patient is already auto anticoagulated Plan: Patient be continued on pain management, IV fluids and antibiotics in the form of ceftriaxone and Flagyl. GI and oncology has seen the patient. workup including liver-MRI/CT was ordered. MRI of the abdomen showed near complete replacement of the liver with metastatic disease. Suspicious metastatic lesion in the spine was also noted. Patient wants to get treated and continues to be on full code now. Oncology is following and is planning for chemotherapy. Further recommendations based on the clinical course. Prognosis is poor.
[2018-09-05] MEDS: HYDROmorphone 1 MG/ML 1 ML SYRINGE IVP SCH (23:12)
[2018-09-06] MEDS: HYDROmorphone 1 MG/ML 1 ML SYRINGE IVP SCH ×2 (03:26→22:44)
[2018-09-06] MEDS: HYDROmorphone 1 MG/ML 1 ML SYRINGE IVP PRN ×5 (06:28→20:03)
[2018-09-06 07:59] LABS: Anisocytosis Slight; Basophils # (A) 0.1 k/uL (0-0.2); Basophils % (A) 0 %; Eosinophils # (A) 0.4 k/uL (0-0.7); Eosinophils % (A) 2 %; HCT 33.5 % (34.0-46.0); HGB 11.4 gm/dL (11.4-16.0); Lymphocytes # (A) 0.5 k/uL (1.0-4.8); Lymphocytes % (A) 3 %; MCH 33.5 pg (25.0-35.0); MCV 98.4 fL (80.0-100.0); Macrocytosis Slight; Mean Platelet Volume 7.9; Monocytes # (A) 1.1 k/uL (0-1.0); Monocytes % (A) 6 %; Neutrophils # (A) 17.4 k/uL (1.3-7.7); Neutrophils % (A) 89 %; Platelet Count 274 k/uL (150-450); RDW 17.1 % (11.5-15.5); WBC 19.6 k/uL (3.8-10.6)
[2018-09-06 08:05] LABS: ALT 54 U/L (9-52); AST 187 U/L (14-36); Albumin 2.4 g/dL (3.5-5.0); Alkaline Phosphatase 776 U/L (38-126); Anion Gap 8 mmol/L; Blood Urea Nitrogen 8 mg/dL (7-17); Calcium 8.6 mg/dL (8.4-10.2); Carbon Dioxide 27 mmol/L (22-30); Chloride 97 mmol/L (98-107); Glucose 93 mg/dL (74-99); Potassium 3.4 mmol/L (3.5-5.1); Sodium 132 mmol/L (137-145); Total Protein 5.6 g/dL (6.3-8.2)
[2018-09-06 08:24] LABS: Prothrombin Time 18.2 sec (9.0-12.0)
[2018-09-06] MEDS: ONDANSETRON 4 MG/2 ML VIAL IVP PRN (09:48)
[2018-09-06] MEDS: metroNIDAZOLE 500 MG TAB PO SCH ×3 (09:50→20:50)
[2018-09-06] MEDS: CAPECITABINE PO SCH ×4 (09:51→20:51)
[2018-09-06] MEDS: METOCLOPRAMIDE 5 MG/ML 2 ML VIAL IVP SCH ×2 (09:53→20:04)
[2018-09-06] MEDS: LORazepam 0.5 MG TAB PO SCH ×2 (13:21→16:28)
--- NOTE | 2018-09-06 15:52 | P.PN ---
Subjective Progress Note Date: 09/06/18 Principal diagnosis: Cholangiocarcinoma - Recurrent and Progressive Pain is still not controlled, overall she is tolerating chemo well though. Moving bowels, she does have nausea and takes ativan at home, ok for her to take while here will likely help with anxiety anticipatory nausea, anxiety and pain Objective - Vital Signs Vital signs: Vital Signs Temp 98 F 09/06/18 12:00 Pulse 93 09/06/18 12:00 Resp 20 09/06/18 12:00 BP 105/62 09/06/18 12:00 Pulse Ox 95 09/06/18 12:00 Intake & Output 09/05/18 09/06/18 09/06/18 18:59 06:59 18:59 Intake Total 240 210 Balance 240 210 Weight 82 kg Intake: IV 160 Sodium Chloride 0.9% 1, 160 000 ml @ 20 mls/hr IV . Q24H [facility] Rx#:[id number] Intake, IV Titration 50 Amount cefTRIAXone 1,000 mg In 50 Sodium Chloride 0.9% 50 ml @ 100 mls/hr IVPB Q24HR [facility] Rx#:[id number] Oral 240 Other: Voiding Method Toilet Toilet Toilet # Voids 3 2 - Exam Exam General: In no acute distress. HEENT: Scleral icterus. Mucosa moist. Neck: Neck supple. Lungs: CTA-B. Heart: RRR. No LE edema. Abdomen: Soft. Significant hepatomegaly. MSK: 4/4 strength in all 4 extremities. Neuro: Alert and oriented 3. No obvious gross neurologic deficits. Skin: Jaundice. Psych: Appropriate affect. - Labs CBC & Chem 7: 09/06/18 07:00 09/06/18 07:00 Labs: Abnormal Lab Results - Last 24 Hours (Table) 09/06/18 09/06/18 09/06/18 Range/Units 07:00 07:00 07:00 WBC 19.6 H (3.8-10.6) k/uL RBC 3.40 L (3.80-5.40) m/uL Hct 33.5 L (34.0-46.0) % RDW 17.1 H (11.5-15.5) % Neutrophils # 17.4 H (1.3-7.7) k/uL Lymphocytes # 0.5 L (1.0-4.8) k/uL Monocytes # 1.1 H (0-1.0) k/uL PT 18.2 H (9.0-12.0) sec INR 2.0 H (<1.2) Sodium 132 L (137-145) mmol/L Potassium 3.4 L (3.5-5.1) mmol/L Chloride 97 L (98-107) mmol/L Creatinine 0.37 L (0.52-1.04) mg/dL Total Bilirubin 27.0 H* (0.2-1.3) mg/dL AST 187 H (14-36) U/L ALT 54 H (9-52) U/L Alkaline Phosphatase 776 H (38-126) U/L Total Protein 5.6 L (6.3-8.2) g/dL Albumin 2.4 L (3.5-5.0) g/dL Assessment and Plan Plan: Assessment and Plan Assessment: 1. Metastatic cholangiocarcinoma: WOrsening - Original DIagnosis 2016, whipple and adjuvant chemoradiation - 07/26/18 - Recurrence evidence by positive liver biopsy - She was to start next line therapy with FOLFOX although admitted with sudden onset Jaundice. - Overall prognosis is poor and patient understands with treatment the risks may outweigh its benfits. She will be transferred to the oncology floor to receive oxaliplatin at a dose reduction and will prescribe PO xeloda therapy. - Refused treatment last month, now wanting treatment despite low probabilty of effectiveness, patient and sister fully aware risks and potential benefits 2. Hyperbilirubinemia and transaminitis likely due to metastatic cholangiocarcinoma: Worsening - Progressive, - MRI shows complete replacement of liver tissue by tumor and a potential concern of disease to spine 3. Neoplastic Related Pain: - Fentanyl 75mcg - Dilaudid PRN 2mg q3 hours - Ativan 0.5mg po TID Plan: Continue with daily CBC and CMP Ok increase IV Dilaudid, if we can convert to PO and plan for discharge beneficial LE edema improved with XUAN hose, not sure lasix will help or hinder, need to use with caution. Ativan scheduled.
[2018-09-07] MEDS: LORazepam 0.5 MG TAB PO SCH ×4 (00:12→23:05)
[2018-09-07] MEDS: HYDROmorphone 1 MG/ML 1 ML SYRINGE IVP SCH ×2 (03:32→21:08)
[2018-09-07] MEDS: SODIUM CHLORIDE 0.9% 1,000 ML IV SCH ×2 (03:33→21:12)
[2018-09-07] MEDS: HYDROmorphone 1 MG/ML 1 ML SYRINGE IVP PRN ×2 (06:15→09:40)
[2018-09-07] MEDS: metroNIDAZOLE 500 MG TAB PO SCH ×3 (09:37→21:08)
[2018-09-07] MEDS: CAPECITABINE PO SCH ×4 (09:37→21:10)
[2018-09-07] MEDS: METOCLOPRAMIDE 5 MG/ML 2 ML VIAL IVP SCH ×2 (09:39→21:08)
[2018-09-07] MEDS ORDERED: PHYTONADIONE ORAL 5 MG/5 ML ORAL.SYRG PO STA (12:35)
--- NOTE | 2018-09-07 12:35 | P.PN ---
Subjective Progress Note Date: 09/07/18 Principal diagnosis: Cholangiocarcinoma - Recurrent and Progressive Pain is better on new regimen, will attempt to convert to PO in anticipation of discharge. Objective - Vital Signs Vital signs: Vital Signs Temp 98.3 F 09/07/18 04:00 Pulse 102 H 09/07/18 04:00 Resp 14 09/07/18 04:00 BP 104/55 09/07/18 04:00 Pulse Ox 93 L 09/07/18 04:00 Intake & Output 09/06/18 09/07/18 09/07/18 18:59 06:59 18:59 Intake Total 210 Balance 210 Intake: IV 160 Sodium Chloride 0.9% 1, 160 000 ml @ 20 mls/hr IV . Q24H [facility] Rx#:[id number] Intake, IV Titration 50 Amount cefTRIAXone 1,000 mg In 50 Sodium Chloride 0.9% 50 ml @ 100 mls/hr IVPB Q24HR [facility] Rx#:[id number] Other: Voiding Method Toilet Toilet Toilet # Voids 2 - Exam Exam General: In no acute distress. HEENT: Scleral icterus. Mucosa moist. Neck: Neck supple. Lungs: CTA-B. Heart: RRR. No LE edema. Abdomen: Soft. Significant hepatomegaly. MSK: 4/4 strength in all 4 extremities. Neuro: Alert and oriented 3. No obvious gross neurologic deficits. Skin: Jaundice. Psych: Appropriate affect. - Labs CBC & Chem 7: 09/06/18 07:00 09/06/18 07:00 Assessment and Plan Plan: Assessment and Plan Assessment: 1. Metastatic cholangiocarcinoma: WOrsening - Original DIagnosis 2017, whipple and adjuvant chemoradiation - 07/26/18 - Recurrence evidence by positive liver biopsy - She was to start next line therapy with FOLFOX although admitted with sudden onset Jaundice. - Overall prognosis is poor and patient understands with treatment the risks may outweigh its benfits. She will be transferred to the oncology floor to receive oxaliplatin at a dose reduction and will prescribe PO xeloda therapy. - Refused treatment last month, now wanting treatment despite low probabilty of effectiveness, patient and sister fully aware risks and potential benefits 2. Hyperbilirubinemia and transaminitis likely due to metastatic cholangiocarcinoma: Worsening - Progressive, - MRI shows complete replacement of liver tissue by tumor and a potential concern of disease to spine 3. Neoplastic Related Pain: - Fentanyl 75mcg - Dilaudid PRN 2mg q3 hours - Ativan 0.5mg po TID 4. 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 - MOnitor CLosely Plan: COnvert pain meds to PO in anticipation for discharge.
[2018-09-07 14:07] LABS: Anisocytosis Slight; Basophils # (A) 0.1 k/uL (0-0.2); Basophils % (A) 1 %; Eosinophils # (A) 0.3 k/uL (0-0.7); Eosinophils % (A) 1 %; HCT 39.3 % (34.0-46.0); HGB 12.9 gm/dL (11.4-16.0); Hypochromasia Slight; Lymphocytes # (A) 0.6 k/uL (1.0-4.8); Lymphocytes % (A) 2 %; MCH 33.7 pg (25.0-35.0); MCHC 32.9 g/dL (31.0-37.0); MCV 102.5 fL (80.0-100.0); Macrocytosis Moderate; Mean Platelet Volume 7.6; Monocytes # (A) 1.2 k/uL (0-1.0); Monocytes % (A) 4 %; Neutrophils # (A) 25.3 k/uL (1.3-7.7); Neutrophils % (A) 91 %; Platelet Count 271 k/uL (150-450); RBC 3.83 m/uL (3.80-5.40); RDW 17.2 % (11.5-15.5); WBC 27.8 k/uL (3.8-10.6)
[2018-09-07] MEDS: HYDROmorphone 2 MG TAB PO PRN ×3 (14:10→23:05)
[2018-09-07 14:48] LABS: INR 1.8 (<1.2); Prothrombin Time 16.5 sec (9.0-12.0)
[2018-09-07 15:18] LABS: ALT 54 U/L (9-52); AST 187 U/L (14-36); Albumin 2.4 g/dL (3.5-5.0); Alkaline Phosphatase 761 U/L (38-126); Anion Gap 9 mmol/L; Blood Urea Nitrogen 6 mg/dL (7-17); Calcium 8.4 mg/dL (8.4-10.2); Carbon Dioxide 30 mmol/L (22-30); Chloride 94 mmol/L (98-107); Glucose 135 mg/dL (74-99); Sodium 133 mmol/L (137-145); Total Protein 5.7 g/dL (6.3-8.2)
[2018-09-07 15:29] LABS: Total Bilirubin 29.8 mg/dL (0.2-1.3)
--- NOTE | 2018-09-07 23:20 | P.PN ---
Subjective Progress Note Date: 09/07/18 Principal diagnosis: Metastatic cholangio Carcinoma Jaundice 53-year-old female diagnosed with bile duct cancer 2017 status post Whipple chemoradiation. Admitted with new onset of jaundice abdominal pain. She noticed jaundice a few days ago with dark colored urine. CT imaging June reported hepatic mass she underwent core liver biopsy 07/23/2018 with findings of metastatic adenocarcinoma consistent with primary upper GI versus pancreatobiliary tract origin. Total bilirubin around the time of biopsy was 1.0. AST 51. ALT 31. AP 264. She was seen by oncology and scheduled for chemotherapy this upcoming Saturday. On admission total bilirubin increased 18.5. Conjugated 13.4. AST 145. ALT 54. AP 926. INR 1.4. White count 14. Hemoglobin 12.8. Platelet 261. 08/29/2018 Patient is seen and evaluated in room at bedside; patient relates that pain is controlled with pain medication; feeling somewhat depressed and not sure what course of action is in regards to her treatment; patient relates she's been told by GI for possible MRI and further recommendations after MRI is completed 08/30/2018; MRI results of abdomen showing complete replacement of her liver tissue with malignancy was discussed with patient in great detail; she was very depressed BP with the news; patient was started on Ativan when necessary for anxiety and pain medication regimen was escalated; total bilirubin is continuously trending up; oncology has seen the patient and have recommended possible palliative care ; shouldn't has decided for treatment even though any chemotherapeutic treatment would be palliative; oncology to set out of plan of care and treatment schedule with patient tomorrow 08/31/2018 Patient is seen and evaluated in follow-up; patient seems to be less anxious and weepy; continues to have worsening of yellow discoloration of the skin; relates he has had a detailed discussion with oncology service and does understand all the treatments given to her would be only palliative; patient further relates that she is still prepared to take her chances for treatment 09/01/2018; Patient is seen and evaluated for follow-up on recurrent and progressive cholangiocarcinoma; patient is tearful today in follow-up regarding the rapid recurrence and spread of her disease. She does not want to go home with hospice or palliative or comfort care. She is adament about treatment options, given the fact that treatment may not be beneficial at this time, she is still willing and wanting to pursue with therapy options. Patient relates she did have a detailed discussion regarding treatment options with oncology service; Discussed current disease state and rapid disease progression and aggressive features again with patient this am. According to oncology there are treatment limitations secondary to her hyperbilirubinemia. She states understanding of severity and limited options, although does want to proceed with any available options. Per oncology If Capecitabine is used at a reduced dose, the concern is obtaining the drug and time frame to allow effects maybe limited. She is aware of this. 09/02/2018 Patient says that she doesn't want to and wants to get treated with chemotherapy. Oncology is planning for chemotherapy at this time after discussion with the patient and her sister in detail regarding risks and benefits. Pain is fairly controlled. No fever no chills. No commerce of chest pain or short shortness of breath. No other acute overnight issues. No nausea vomiting or diarrhea. 09/03/2018 Patient denied any complaints of chest pain or worsening shortness of breath. No nausea vomiting or abdominal pain. Pain is controlled with medications including Dilaudid IV. Oncology is planning for chemotherapy. Patient wants to get chemotherapy now. She refused previously. Patient is being transferred to oncology unit. 09/04/2018 Patient denied any complaints of chest pain or shortness of breath. Abdominal pain is much improved. No fever no chills. Oncology is starting chemotherapy today with Capeox 09/07/2018 Patient is still complaining of pain but improved with fentanyl patch, Dilaudid and Ativan combination. Oncology is following. Patient is getting chemotherapy. No fever no chills. Patient is still having significant leukocytosis and also hyperbilirubinemia. Prognosis is poor. Continued on IV antibiotics. Current medications reviewed. Objective - Vital Signs Vital signs: Vital Signs Temp 98.3 F 09/07/18 04:00 Pulse 96 09/07/18 12:33 Resp 18 09/07/18 12:33 BP 98/55 09/07/18 12:33 Pulse Ox 94 L 09/07/18 12:33 Intake & Output 09/06/18 09/07/18 09/07/18 18:59 06:59 18:59 Intake Total 210 210 Balance 210 210 Intake: IV 160 160 Sodium Chloride 0.9% 1, 160 160 000 ml @ 20 mls/hr IV . Q24H [facility] Rx#:[id number] Intake, IV Titration 50 50 Amount cefTRIAXone 1,000 mg In 50 50 Sodium Chloride 0.9% 50 ml @ 100 mls/hr IVPB Q24HR [facility] Rx#:[id number] Other: Voiding Method Toilet Toilet Toilet # Voids 2 - Exam Patient is lying in the bed comfortably, no acute distress, awake alert and oriented.. HEENT: Normocephalic. Neck is supple. Pupils reactive. Icterus positive. Nostrils clear. Oral cavity is moist. Ears reveal no drainage. Neck reveals no JVD, carotid bruits, or thyromegaly. CHEST EXAMINATION: Trachea is central. Symmetrical expansion. Bibasilar diminished air entry. Lung [place] clear to auscultation and percussion. CARDIAC: Normal S1, S2 with no gallops. No murmurs ABDOMEN: Soft. Right upper quadrant tenderness. Bowel sounds normal. No organomegaly. No abdominal bruits. Extremities: reveal no edema. No clubbing or cyanosis Neurologically awake, alert, oriented x3 with well-coordinated movements. No focal deficits noted Skin: No rash or skin lesions. Patient does have a list discoloration of the skin. Psychiatric: Coperative. Nonsuicidal Musculoskeletal: No joint swelling or deformity. Normal range of motion. - Labs CBC & Chem 7: 09/07/18 13:51 09/07/18 14:42 Labs: Abnormal Lab Results - Last 24 Hours (Table) 09/07/18 09/07/18 09/07/18 Range/Units 13:51 13:51 14:42 WBC 27.8 H (3.8-10.6) k/uL MCV 102.5 H (80.0-100.0) fL RDW 17.2 H (11.5-15.5) % Neutrophils # 25.3 H (1.3-7.7) k/uL Lymphocytes # 0.6 L (1.0-4.8) k/uL Monocytes # 1.2 H (0-1.0) k/uL PT 16.5 H (9.0-12.0) sec INR 1.8 H (<1.2) Sodium 133 L (137-145) mmol/L Potassium 3.0 L (3.5-5.1) mmol/L Chloride 94 L (98-107) mmol/L BUN 6 L (7-17) mg/dL Creatinine 0.38 L (0.52-1.04) mg/dL Glucose 135 H (74-99) mg/dL Total Bilirubin 29.8 H* (0.2-1.3) mg/dL AST 187 H (14-36) U/L ALT 54 H (9-52) U/L Alkaline Phosphatase 761 H (38-126) U/L Total Protein 5.7 L (6.3-8.2) g/dL Albumin 2.4 L (3.5-5.0) g/dL Assessment and Plan Assessment: Obstructive jaundice/hyperbilirubinemia likely intrahepatic with metastatic adenocarcinoma the bile ducts. Cholangiocarcinoma Hyperbilirubinemia due to cholangiocarcinoma Possible acute cholangitis Primary bile duct internal carcinoma diagnosed in 2017. Status post Whipple's procedure and adjuvant chemotherapy Chronic pain due to underlying cancer Coagulopathy with INR 1.4 Elevated liver enzymes due to metastatic lesions Currently in the day smoker Anxiety DVT prophylaxis. Patient is already auto anticoagulated Plan: Patient be continued on pain management, IV fluids and antibiotics in the form of ceftriaxone and Flagyl. GI and oncology has seen the patient. workup including liver-MRI/CT was ordered. MRI of the abdomen showed near complete replacement of the liver with metastatic disease. Suspicious metastatic lesion in the spine was also noted. Patient wants to get treated and continues to be on full code now. Patient was started on palliative chemotherapy. Further recommendations based on the clinical course. Prognosis is poor. Time with Patient: Greater than 30
[2018-09-08 01:06] VITALS: RESP 16
[2018-09-08] MEDS: HYDROmorphone 2 MG TAB PO PRN ×2 (02:51→06:55)
[2018-09-08] MEDS: HYDROmorphone 1 MG/ML 1 ML SYRINGE IVP SCH ×2 (06:04→22:51)
[2018-09-08] MEDS: LORazepam 0.5 MG TAB PO SCH ×2 (07:52→16:11)
[2018-09-08] MEDS: METOCLOPRAMIDE 5 MG/ML 2 ML VIAL IVP SCH ×2 (07:52→21:03)
[2018-09-08] MEDS: CAPECITABINE PO SCH ×4 (07:53→21:04)
[2018-09-08] MEDS: metroNIDAZOLE 500 MG TAB PO SCH ×3 (07:53→21:04)
[2018-09-08 07:57] LABS: ALT 59 U/L (9-52); AST 192 U/L (14-36); Albumin 2.3 g/dL (3.5-5.0); Alkaline Phosphatase 736 U/L (38-126); Anion Gap 8 mmol/L; Blood Urea Nitrogen 6 mg/dL (7-17); Calcium 8.4 mg/dL (8.4-10.2); Carbon Dioxide 30 mmol/L (22-30); Chloride 94 mmol/L (98-107); Glucose 83 mg/dL (74-99); Potassium 3.3 mmol/L (3.5-5.1); Sodium 132 mmol/L (137-145); Total Protein 5.5 g/dL (6.3-8.2)
[2018-09-08 08:03] LABS: INR 1.6 (<1.2); Prothrombin Time 14.5 sec (9.0-12.0)
[2018-09-08 08:07] LABS: Total Bilirubin 29.3 mg/dL (0.2-1.3)
[2018-09-08 08:18] LABS: Anisocytosis Slight; HCT 32.6 % (34.0-46.0); MCH 33.5 pg (25.0-35.0); MCHC 33.9 g/dL (31.0-37.0); MCV 98.9 fL (80.0-100.0); Macrocytosis Slight; Mean Platelet Volume 8.4; Platelet Count 250 k/uL (150-450); RBC 3.29 m/uL (3.80-5.40); RDW 17.3 % (11.5-15.5); WBC 21.3 k/uL (3.8-10.6)
[2018-09-08 10:00] LABS: Band Neutrophils % 4 %; Eosinophils # (M) 0.21 k/uL (0-0.7); Lymphocytes # (M) 0.64 k/uL (1.0-4.8); Metamyelocytes # (M) 0.21 k/uL (0); Metamyelocytes % 1 %; Neutrophils % (M) 84 %; Nucleated Red Blood Cells 0 /100 WBC (0-0); Total Cells Counted 200
[2018-09-08] MEDS: HYDROmorphone 1 MG/ML 1 ML SYRINGE IVP PRN ×2 (12:58→17:26)
[2018-09-08 13:18] VITALS: BMI 31.0
[2018-09-08] MEDS: ONDANSETRON 4 MG/2 ML VIAL IVP PRN (16:12)
--- NOTE | 2018-09-08 18:17 | P.PN ---
Subjective Progress Note Date: 09/08/18 Principal diagnosis: Cholangiocarcinoma - Recurrent and Progressive Pain is better on new regimen, will attempt to convert to PO in anticipation of discharge. Long discussion of goals of discharge as patient feels she doesnt want to leave till improvement in cancer, explained the realistic goals of discharge and understanding stated Objective - Vital Signs Vital signs: Vital Signs Temp 98.4 F 09/08/18 05:00 Pulse 92 09/08/18 05:00 Resp 16 09/08/18 05:00 BP 90/49 09/08/18 05:00 Pulse Ox 97 09/08/18 05:00 Intake & Output 09/07/18 09/08/18 09/08/18 18:59 06:59 18:59 Intake Total 210 830 160 Balance 210 830 160 Weight 82 kg Intake: IV 160 240 160 Sodium Chloride 0.9% 1, 160 240 160 000 ml @ 20 mls/hr IV . Q24H [facility] Rx#:[id number] Intake, IV Titration 50 Amount cefTRIAXone 1,000 mg In 50 Sodium Chloride 0.9% 50 ml @ 100 mls/hr IVPB Q24HR [facility] Rx#:[id number] Oral 590 Other: Voiding Method Toilet Toilet Toilet - Exam Exam General: In no acute distress. HEENT: Scleral icterus. Mucosa moist. Neck: Neck supple. Lungs: CTA-B. Heart: RRR. No LE edema. Abdomen: Soft. Significant hepatomegaly. MSK: 4/4 strength in all 4 extremities. Neuro: Alert and oriented 3. No obvious gross neurologic deficits. Skin: Jaundice. Psych: Appropriate affect. - Labs CBC & Chem 7: 09/08/18 06:34 09/08/18 06:34 Labs: Abnormal Lab Results - Last 24 Hours (Table) 09/08/18 09/08/18 09/08/18 Range/Units 06:34 06:34 06:34 WBC 21.3 H (3.8-10.6) k/uL RBC 3.29 L (3.80-5.40) m/uL Hgb 11.0 L (11.4-16.0) gm/dL Hct 32.6 L (34.0-46.0) % RDW 17.3 H (11.5-15.5) % Neutrophils # (Manual) 18.70 H (1.3-7.7) k/uL Lymphocytes # (Manual) 0.64 L (1.0-4.8) k/uL Monocytes # (Manual) 1.70 H (0-1.0) k/uL Metamyelocytes # (Man) 0.21 H (0) k/uL PT 14.5 H (9.0-12.0) sec INR 1.6 H (<1.2) Sodium 132 L (137-145) mmol/L Potassium 3.3 L (3.5-5.1) mmol/L Chloride 94 L (98-107) mmol/L BUN 6 L (7-17) mg/dL Creatinine 0.40 L (0.52-1.04) mg/dL Total Bilirubin 29.3 H* (0.2-1.3) mg/dL AST 192 H (14-36) U/L ALT 59 H (9-52) U/L Alkaline Phosphatase 736 H (38-126) U/L Total Protein 5.5 L (6.3-8.2) g/dL Albumin 2.3 L (3.5-5.0) g/dL Assessment and Plan Plan: Assessment and Plan Assessment: 1. Metastatic cholangiocarcinoma: WOrsening - Original DIagnosis 2017, whipple and adjuvant chemoradiation - 07/26/18 - Recurrence evidence by positive liver biopsy - She was to start next line therapy with FOLFOX although admitted with sudden onset Jaundice. - Overall prognosis is poor and patient understands with treatment the risks may outweigh its benfits. She will be transferred to the oncology floor to receive oxaliplatin at a dose reduction and will prescribe PO xeloda therapy. - Refused treatment last month, now wanting treatment despite low probabilty of effectiveness, patient and sister fully aware risks and potential benefits 2. Hyperbilirubinemia and transaminitis likely due to metastatic cholangiocarcinoma: Worsening - Progressive, - MRI shows complete replacement of liver tissue by tumor and a potential concern of disease to spine 3. Neoplastic Related Pain: - Fentanyl 75mcg - Dilaudid PRN 2mg q3 hours - Ativan 0.5mg po TID 4. 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 - MOnitor CLosely Plan: COnvert pain meds to PO in anticipation for discharge. Pain improved, attempt to fill fentanyl through [facility] in am and if covered entitity will defer DC to Primary team 24-48 hours
[2018-09-08] MEDS: SODIUM CHLORIDE 0.9% 1,000 ML IV SCH (22:53)
[2018-09-09] MEDS: LORazepam 0.5 MG TAB PO SCH ×3 (00:04→15:50)
--- NOTE | 2018-09-09 00:21 | P.PN ---
Subjective Progress Note Date: 09/08/18 Principal diagnosis: Metastatic cholangio Carcinoma Jaundice 53-year-old female diagnosed with bile duct cancer 2017 status post Whipple chemoradiation. Admitted with new onset of jaundice abdominal pain. She noticed jaundice a few days ago with dark colored urine. CT imaging June reported hepatic mass she underwent core liver biopsy 07/23/2018 with findings of metastatic adenocarcinoma consistent with primary upper GI versus pancreatobiliary tract origin. Total bilirubin around the time of biopsy was 1.0. AST 51. ALT 31. AP 264. She was seen by oncology and scheduled for chemotherapy this upcoming Saturday. On admission total bilirubin increased 18.5. Conjugated 13.4. AST 145. ALT 54. AP 926. INR 1.4. White count 14. Hemoglobin 12.8. Platelet 261. 08/29/2018 Patient is seen and evaluated in room at bedside; patient relates that pain is controlled with pain medication; feeling somewhat depressed and not sure what course of action is in regards to her treatment; patient relates she's been told by GI for possible MRI and further recommendations after MRI is completed 08/30/2018; MRI results of abdomen showing complete replacement of her liver tissue with malignancy was discussed with patient in great detail; she was very depressed BP with the news; patient was started on Ativan when necessary for anxiety and pain medication regimen was escalated; total bilirubin is continuously trending up; oncology has seen the patient and have recommended possible palliative care ; shouldn't has decided for treatment even though any chemotherapeutic treatment would be palliative; oncology to set out of plan of care and treatment schedule with patient tomorrow 08/31/2018 Patient is seen and evaluated in follow-up; patient seems to be less anxious and weepy; continues to have worsening of yellow discoloration of the skin; relates he has had a detailed discussion with oncology service and does understand all the treatments given to her would be only palliative; patient further relates that she is still prepared to take her chances for treatment 09/01/2018; Patient is seen and evaluated for follow-up on recurrent and progressive cholangiocarcinoma; patient is tearful today in follow-up regarding the rapid recurrence and spread of her disease. She does not want to go home with hospice or palliative or comfort care. She is adament about treatment options, given the fact that treatment may not be beneficial at this time, she is still willing and wanting to pursue with therapy options. Patient relates she did have a detailed discussion regarding treatment options with oncology service; Discussed current disease state and rapid disease progression and aggressive features again with patient this am. According to oncology there are treatment limitations secondary to her hyperbilirubinemia. She states understanding of severity and limited options, although does want to proceed with any available options. Per oncology If Capecitabine is used at a reduced dose, the concern is obtaining the drug and time frame to allow effects maybe limited. She is aware of this. 09/02/2018 Patient says that she doesn't want to and wants to get treated with chemotherapy. Oncology is planning for chemotherapy at this time after discussion with the patient and her sister in detail regarding risks and benefits. Pain is fairly controlled. No fever no chills. No commerce of chest pain or short shortness of breath. No other acute overnight issues. No nausea vomiting or diarrhea. 09/03/2018 Patient denied any complaints of chest pain or worsening shortness of breath. No nausea vomiting or abdominal pain. Pain is controlled with medications including Dilaudid IV. Oncology is planning for chemotherapy. Patient wants to get chemotherapy now. She refused previously. Patient is being transferred to oncology unit. 09/04/2018 Patient denied any complaints of chest pain or shortness of breath. Abdominal pain is much improved. No fever no chills. Oncology is starting chemotherapy today with Capeox 09/07/2018 Patient is still complaining of pain but improved with fentanyl patch, Dilaudid and Ativan combination. Oncology is following. Patient is getting chemotherapy. No fever no chills. Patient is still having significant leukocytosis and also hyperbilirubinemia. Prognosis is poor. Continued on IV antibiotics. 09/08/2018 Patient is still complaining of pain. Otherwise improved with current medication regimen and is being converted to oral regimen for discharge home. Patient does not want to leave the hospital until some improvement in her cancer. No fever no chills. No chest pain or shortness of breath. Oncology is following. Current medications reviewed. Objective - Vital Signs Vital signs: Vital Signs Temp 98.4 F 09/08/18 05:00 Pulse 92 09/08/18 05:00 Resp 16 09/08/18 05:00 BP 90/49 09/08/18 05:00 Pulse Ox 97 09/08/18 05:00 Intake & Output 09/07/18 09/08/18 09/08/18 18:59 06:59 18:59 Intake Total 210 830 Balance 210 830 Weight 82 kg Intake: IV 160 240 Sodium Chloride 0.9% 1, 160 240 000 ml @ 20 mls/hr IV . Q24H [facility] Rx#:[id number] Intake, IV Titration 50 Amount cefTRIAXone 1,000 mg In 50 Sodium Chloride 0.9% 50 ml @ 100 mls/hr IVPB Q24HR [facility] Rx#:[id number] Oral 590 Other: Voiding Method Toilet Toilet Toilet - Exam Patient is lying in the bed comfortably, no acute distress, awake alert and oriented.. HEENT: Normocephalic. Neck is supple. Pupils reactive. Icterus positive. Nostrils clear. Oral cavity is moist. Ears reveal no drainage. Neck reveals no JVD, carotid bruits, or thyromegaly. CHEST EXAMINATION: Trachea is central. Symmetrical expansion. Bibasilar diminished air entry. Lung [place] clear to auscultation and percussion. CARDIAC: Normal S1, S2 with no gallops. No murmurs ABDOMEN: Soft. Right upper quadrant tenderness. Bowel sounds normal. No organomegaly. No abdominal bruits. Extremities: reveal no edema. No clubbing or cyanosis Neurologically awake, alert, oriented x3 with well-coordinated movements. No focal deficits noted Skin: No rash or skin lesions. Patient does have a list discoloration of the skin. Psychiatric: Coperative. Nonsuicidal Musculoskeletal: No joint swelling or deformity. Normal range of motion. - Labs CBC & Chem 7: 09/08/18 06:34 09/08/18 06:34 Labs: Abnormal Lab Results - Last 24 Hours (Table) 09/08/18 09/08/18 09/08/18 Range/Units 06:34 06:34 06:34 WBC 21.3 H (3.8-10.6) k/uL RBC 3.29 L (3.80-5.40) m/uL Hgb 11.0 L (11.4-16.0) gm/dL Hct 32.6 L (34.0-46.0) % RDW 17.3 H (11.5-15.5) % Neutrophils # (Manual) 18.70 H (1.3-7.7) k/uL Lymphocytes # (Manual) 0.64 L (1.0-4.8) k/uL Monocytes # (Manual) 1.70 H (0-1.0) k/uL Metamyelocytes # (Man) 0.21 H (0) k/uL PT 14.5 H (9.0-12.0) sec INR 1.6 H (<1.2) Sodium 132 L (137-145) mmol/L Potassium 3.3 L (3.5-5.1) mmol/L Chloride 94 L (98-107) mmol/L BUN 6 L (7-17) mg/dL Creatinine 0.40 L (0.52-1.04) mg/dL Total Bilirubin 29.3 H* (0.2-1.3) mg/dL AST 192 H (14-36) U/L ALT 59 H (9-52) U/L Alkaline Phosphatase 736 H (38-126) U/L Total Protein 5.5 L (6.3-8.2) g/dL Albumin 2.3 L (3.5-5.0) g/dL Assessment and Plan Assessment: Obstructive jaundice/hyperbilirubinemia likely intrahepatic with metastatic adenocarcinoma the bile ducts. Cholangiocarcinoma Hyperbilirubinemia due to cholangiocarcinoma Possible acute cholangitis Primary bile duct internal carcinoma diagnosed in 2017. Status post Whipple's procedure and adjuvant chemotherapy Chronic pain due to underlying cancer Coagulopathy with INR 1.4 Elevated liver enzymes due to metastatic lesions Currently in the day smoker Anxiety DVT prophylaxis. Patient is already auto anticoagulated Plan: Patient be continued on pain management, IV fluids and antibiotics in the form of ceftriaxone and Flagyl. GI and oncology has seen the patient. workup including liver-MRI/CT was ordered. MRI of the abdomen showed near complete replacement of the liver with metastatic disease. Suspicious metastatic lesion in the spine was also noted. Patient wants to get treated and continues to be on full code now. Patient was started on palliative chemotherapy. Further recommendations based on the clinical course. Goals of the treatment has been explained to the patient in detail. Prognosis is poor. Time with Patient: Greater than 30
[2018-09-09] MEDS: HYDROmorphone 2 MG TAB PO PRN ×4 (03:10→15:49)
[2018-09-09 05:44] VITALS: BP 96/55; PULSE 94; TEMP 97.9
[2018-09-09] MEDS: HYDROmorphone 1 MG/ML 1 ML SYRINGE IVP SCH (06:06)
[2018-09-09] MEDS: METOCLOPRAMIDE 5 MG/ML 2 ML VIAL IVP SCH (08:02)
[2018-09-09] MEDS: metroNIDAZOLE 500 MG TAB PO SCH ×2 (08:02→15:50)
[2018-09-09] MEDS: CAPECITABINE PO SCH ×2 (08:07→08:08)
[2018-09-09 08:16] LABS: Anisocytosis Slight; Basophils # (A) 0.2 k/uL (0-0.2); Basophils % (A) 1 %; Eosinophils # (A) 0.6 k/uL (0-0.7); Eosinophils % (A) 2 %; HCT 32.7 % (34.0-46.0); HGB 11.1 gm/dL (11.4-16.0); Lymphocytes # (A) 0.7 k/uL (1.0-4.8); Lymphocytes % (A) 3 %; MCH 33.9 pg (25.0-35.0); MCV 99.9 fL (80.0-100.0); Macrocytosis Slight; Mean Platelet Volume 7.8; Monocytes # (A) 1.3 k/uL (0-1.0); Monocytes % (A) 6 %; Neutrophils # (A) 20.1 k/uL (1.3-7.7); Neutrophils % (A) 87 %; Platelet Count 244 k/uL (150-450); RBC 3.28 m/uL (3.80-5.40); RDW 17.8 % (11.5-15.5); WBC 23.1 k/uL (3.8-10.6)
[2018-09-09 08:19] LABS: ALT 62 U/L (9-52); AST 201 U/L (14-36); Albumin 2.3 g/dL (3.5-5.0); Alkaline Phosphatase 696 U/L (38-126); Anion Gap 10 mmol/L; Blood Urea Nitrogen 5 mg/dL (7-17); Calcium 8.6 mg/dL (8.4-10.2); Carbon Dioxide 29 mmol/L (22-30); Chloride 94 mmol/L (98-107); Glucose 87 mg/dL (74-99); Potassium 3.3 mmol/L (3.5-5.1); Sodium 133 mmol/L (137-145); Total Protein 5.8 g/dL (6.3-8.2)
[2018-09-09 08:34] LABS: INR 1.6 (<1.2)
[2018-09-09 08:39] LABS: Total Bilirubin 30.2 mg/dL (0.2-1.3)
--- NOTE | 2018-09-09 16:29 | P.PN ---
Subjective Progress Note Date: 09/09/18 Principal diagnosis: Cholangiocarcinoma - Recurrent and Progressive Pain is better on new regimen, will attempt to convert to PO in anticipation of discharge. Long discussion of goals of discharge as patient feels she doesnt want to leave till improvement in cancer, explained the realistic goals of discharge and understanding stated. Patient is planning for Discharge today. Objective - Vital Signs Vital signs: Vital Signs Temp 97.9 F 09/09/18 05:00 Pulse 94 09/09/18 05:00 Resp 16 09/09/18 05:00 BP 96/55 09/09/18 05:00 Pulse Ox 97 09/09/18 05:00 Intake & Output 09/08/18 09/09/18 09/09/18 18:59 06:59 18:59 Intake Total 160 830 Balance 160 830 Weight 82 kg Intake: IV 160 240 Sodium Chloride 0.9% 1, 160 240 000 ml @ 20 mls/hr IV . Q24H [facility] Rx#:[id number] Oral 590 Other: Voiding Method Toilet Toilet Toilet # Voids 2 - Labs CBC & Chem 7: 09/09/18 07:43 09/09/18 07:43 Labs: Abnormal Lab Results - Last 24 Hours (Table) 09/09/18 09/09/18 09/09/18 Range/Units 07:43 07:43 07:43 WBC 23.1 H (3.8-10.6) k/uL RBC 3.28 L (3.80-5.40) m/uL Hgb 11.1 L (11.4-16.0) gm/dL Hct 32.7 L (34.0-46.0) % RDW 17.8 H (11.5-15.5) % Neutrophils # 20.1 H (1.3-7.7) k/uL Lymphocytes # 0.7 L (1.0-4.8) k/uL Monocytes # 1.3 H (0-1.0) k/uL PT 15.0 H (9.0-12.0) sec INR 1.6 H (<1.2) Sodium 133 L (137-145) mmol/L Potassium 3.3 L (3.5-5.1) mmol/L Chloride 94 L (98-107) mmol/L BUN 5 L (7-17) mg/dL Creatinine 0.37 L (0.52-1.04) mg/dL Total Bilirubin 30.2 H* (0.2-1.3) mg/dL AST 201 H (14-36) U/L ALT 62 H (9-52) U/L Alkaline Phosphatase 696 H (38-126) U/L Total Protein 5.8 L (6.3-8.2) g/dL Albumin 2.3 L (3.5-5.0) g/dL Assessment and Plan Plan: Assessment and Plan Assessment: 1. Metastatic cholangiocarcinoma: WOrsening - Original DIagnosis 2017, whipple and adjuvant chemoradiation - 07/26/18 - Recurrence evidence by positive liver biopsy - She was to start next line therapy with FOLFOX although admitted with sudden onset Jaundice. - Overall prognosis is poor and patient understands with treatment the risks may outweigh its benfits. She will be transferred to the oncology floor to receive oxaliplatin at a dose reduction and will prescribe PO xeloda therapy. - Refused treatment last month, now wanting treatment despite low probabilty of effectiveness, patient and sister fully aware risks and potential benefits 2. Hyperbilirubinemia and transaminitis likely due to metastatic cholangiocarcinoma: Worsening - Progressive, - MRI shows complete replacement of liver tissue by tumor and a potential concern of disease to spine 3. Neoplastic Related Pain: - Fentanyl 75mcg - Dilaudid PRN 2mg q3 hours - Ativan 0.5mg po TID 4. 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 - MOnitor CLosely Plan: - Medications have been changed from MS contin and percocet. - Fentanyl 75mcg and Dilaudid 4mg po q3 has controlled pain - opioid counseling. and [facility] and contract through office with Dr. Chowdary. - Ok for discharge from oncology standpoint as long as able to receive authorization from insurance for appropriate pain medications, as hospitalization was secondary to prolonged hospital stay for pain not controlled on MS contin and Percocet. - Patients overall prognosis is poor and with her metastatic disease and rapid progression she understands treatment is palliative and risk of treatment versus benefit is also high.
== END 2018-09-09 18:48 | disposition home health service (06) | DRG 435 ==
LOC: EC 17:14 → 4MS4W 19:31 → 3NMEDONC 09-03 16:34
PROVIDERS: ADMIT Hospitalist; ATTEND Hospitalist
PROC: 3E0 Administration, Physiological Systems and Anatomical Regions, Introduction (ICD-10-PCS; principal; 2018-09-07)
DX: C22.1 Intrahepatic bile duct carcinoma (principal); K83.1 Obstruction of bile duct; D68.4 Acquired coagulation factor deficiency; J98.11 Atelectasis; K83.09 Other cholangitis; C79.51 Secondary malignant neoplasm of bone; F17.200 Nicotine dependence, unspecified, uncomplicated; F41.9 Anxiety disorder, unspecified; G89.3 Neoplasm related pain (acute) (chronic); Z90.411 Acquired partial absence of pancreas; R19.7 Diarrhea, unspecified; R11.0 Nausea; K71.10 Toxic liver disease with hepatic necrosis, without coma; T45.1X5A Adverse effect of antineoplastic and immunosuppressive drugs, initial encounter; Z51.5 Encounter for palliative care; R74.0 Nonspecific elevation of levels of transaminase and lactic acid dehydrogenase [LDH]; Z92.3 Personal history of irradiation
CPT/HCPCS: 36415; 71046; 74183; 76705; 80048; 80053; 80074; 80076; 81001; 82140; 82150; 82247; 82248; 83605; 83615; 83690; 85025; 85610; 85730; 87040; 93970; 96361; 96365; 99285